=== PATIENT | female | born 1935 | race Caucasian/White ===

== ENCOUNTER 2018-04-12 15:01 | Observation (INO) ==
--- NOTE | 2018-04-12 15:16 | Emergency Department Note ---
Disposition Clinical Impression: Weakness, Hyponatremia UTI (urinary tract infection) Qualifiers: Urinary tract infection type: acute cystitis Hematuria presence: without hematuria Qualified Code(s): N30.00 - Acute cystitis without hematuria Disposition: Admitted As Inpatient Condition: Good Referrals: Charity Pike, WASH HELPER [Primary Care Provider] - Forms: ED Satisfaction Letter, Work/School Release Weakness HPI - General Chief complaint: ED Abdominal Pain Stated complaint: weakness, abd pain Time Seen by Provider: 04/12/18 15:10 Source: patient, EMS Mode of arrival: EMS Limitations: no limitations - History of Present Illness HPI Narrative: Patient presents with report of the "same thing that has been happening". She states for about 5 years she has had some generalized weakness some nausea without vomiting. She relates that prior to arrival she got "very weak" and felt faint to where she "nearly fell". She states that she felt hungry but "could not eat". She denies any new pain but reports some "normal pelvic area pain". She attributes this to some prolapse that she is recurrently had. She denies chest pain, palpitations, cough or shortness of breath. She denies fevers or chills. He denies other abdominal pains, diarrhea or constipation. She states she urinates frequently but she has had more frequent urination with some burning. She denies any change in medicines. She denies any falls or injuries. She denies lower extremity complaints. She denies use of anticoagulant. She states she lives alone at [facility]. Pt Subjective Complaint: generalized weakness/fatigue Onset (ago): year(s) Duration: constant, gradually worsening Location: generalized Migration: none Pain Severity: moderate (Chronic pelvic discomfort) Improves with: none Worsens with: exertion Context: history of similar Associated symptoms: Reports: dysuria, loss of appetite. Denies: chest pain, confusion, dark stools, diaphoresis, easy bruising, fever/chills, headaches, nausea/vomiting, myalgias, rash, shortness of breath, syncope - Related Data Home Medications Medication Instructions Recorded Confirmed Allopurinol [Zyloprim 300 MG] 300 mg PO DAILY 02/19/16 04/12/18 Calcium Carbonate/Vitamin D3 1 each PO DAILY 02/19/16 04/12/18 [Calcium 600 + Vit D Softgel] Fenofibrate [Tricor] 54 mg PO DAILY 02/19/16 04/12/18 Fluticasone Furoate [Arnuity 100 mcg NS DAILY 02/19/16 04/12/18 Ellipta] Ibuprofen [Motrin] 800 mg PO BID 02/19/16 04/12/18 Levothyroxine [Synthroid] 50 mcg PO DAILY 02/19/16 04/12/18 Multivitamin [Chewable Multi 1 tab PO DAILY 02/19/16 04/12/18 Vitamin] [place]-3/Dha/Epa/Fish Oil [Fish Oil 1 each PO BID 02/19/16 04/12/18 1,000 mg Softgel] PrednisoLONE Acetate 1% Opth 1 drop RIGHT EYE DAILY 02/19/16 04/12/18 [PredFORTE 1%] Propranolol [Inderal] 10 mg PO BID 02/19/16 04/12/18 Allergies Allergy/AdvReac Type Severity Reaction Status Date / Time azithromycin Allergy Hives Verified 02/05/18 18:53 [From Zithromax Z-Silviano] ciprofloxacin [From Cipro] Allergy Hives Verified 04/12/18 15:16 gabapentin Allergy Gastrointestinal Verified 02/05/18 18:53 Upset oxybutynin Allergy Gastrointestinal Verified 02/05/18 18:53 Upset All systems ED: reviewed and negative except as stated. Past Medical History - Past Medical History Medical history: Reports: arthritis, hyperlipidemia, kidney stones, renal disease, thyroid disease, other (Essential tremor, spinal stenosis, rectocele) Surgical history: Reports: appendectomy, cataract, cholecystectomy, herniorrhaphy, hip replacement, hysterectomy, orthopedic, other (Right knee arthroscopy), ureteral stent, other (Corneal transplant, cystocele/rectocele repair, lithotripsy, right oophorectomy) Psychiatric history: Reports: no psych history ORACLE ARCHITECT history: Reports: bilateral tubal ligation - Social History Smoking Status: Never smoker Smokeless Tobacco Status: No Alcohol use: Reports: none Drug use: Reports: none Physical Exam - General Limitations: no limitations General appearance: alert, in no apparent distress - Head Head exam: atraumatic, normocephalic, normal inspection - Eye Eye exam: Present: normal appearance, PERRL, EOMI. Absent: conjunctival injection - ENT ENT exam: normal exam, normal oropharynx, mucous membranes moist - Neck Neck exam: Present: normal inspection, full ROM, trachea midline - Chest Chest inspection: Present: normal inspection, symmetric chest wall rise - Respiratory Respiratory exam: Present: normal lung sounds bilaterally. Absent: respiratory distress, wheezes, prolonged expiratory phase - Cardiovascular Cardiovascular exam: Present: regular rate, normal rhythm, normal heart sounds. Absent: tachycardia - Abdominal Exam Abdominal exam: Present: soft, Non-Tender, normal bowel sounds. Absent: tenderness, distention, guarding, rebound, rigidity - Extremities Exam Extremities exam: Present: normal inspection, full ROM, normal capillary refill. Absent: tenderness, pedal edema, calf tenderness - Expanded Lower Extremity Exam Neurovascular/Tendon exam: Present: normal capillary refill. Absent: motor deficit, sensory deficit, tendon deficit Gait: not tested/not observed - Back Exam Back exam: Present: normal inspection, full ROM. Absent: tenderness, CVA tenderness (R), CVA tenderness (L), vertebral tenderness - Neurological Exam Neurological exam: Present: alert, oriented X3 - Psychiatric Psychiatric exam: Present: normal affect, normal mood - Skin Skin exam: Present: warm, dry, intact, normal color. Absent: rash, diaphoresis , pallor Course Course Narrative: Given the patient's weakness and urinary tract infection, she has been started on IV fluids and IV Rocephin. Care is discussed with Dr. Hernandez to coordinate further inpatient hydration and IV antibiotic treatment. She will need assessment with regard to her strength and ability to ambulate to return to independent living. She is coordinated for observation in stable condition. Vital Signs Temperature 100.4 F H 04/12/18 15:04 Pulse Rate 78 04/12/18 15:04 Respiratory Rate 18 04/12/18 15:04 Blood Pressure 155/74 04/12/18 15:04 O2 Sat by Pulse Oximetry 95 04/12/18 15:04 Temperature 100.4 F H 04/12/18 15:04 Pulse Rate 74 04/12/18 16:16 Respiratory Rate 18 04/12/18 16:16 Blood Pressure 143/55 04/12/18 16:16 O2 Sat by Pulse Oximetry 98 04/12/18 16:16 Oxygen Delivery Oxygen Delivery Room Air Weakness - Differential Diagnosis Differential Diagnosis: Likely: acute myocardial infarction, anemia, sepsis/ infection, dehydration, medication effect, metabolic - Medical Records Medical records reviewed: Yes I reviewed the patient's medical records. - Lab Data Lab results reviewed: Yes I reviewed the patient's lab results. Result diagrams: 04/12/18 15:45 04/12/18 15:45 Lab Results 04/12/18 04/12/18 04/12/18 Range/Units 15:26 15:45 15:45 WBC 10.2 (4.3-11.1) K/mcL RBC 4.86 (3.82-4.97) M/mcL Hgb 12.9 (11.5-15.4) g/dL Hct 38.9 (35.3-44.9) % MCV 80.0 L (83.0-100.0) fL MCH 26.5 L (28.0-33.3) pg MCHC 33.2 (31.6-35.5) g/dL RDW 15.1 H (11.5-14.5) % Plt Count 282 (140-400) K/mcL MPV 8.8 L (9.4-12.4) fL Immature Gran % 0.4 (0-4) % Seg Neutrophils % 74.1 % Lymphocytes % 11.7 % Monocytes % 13.2 % Eosinophils % 0.4 % Basophils % 0.2 % Neutrophils # 7.6 (1.6-8.9) K/mcL Lymphocytes # 1.2 (0.6-4.6) K/mcL Monocytes # 1.4 H (0.0-1.3) K/mcL Eosinophils # 0.0 (0.0-0.6) K/mcL Basophils # 0.0 (0.0-0.2) K/mcL Sodium 129 L (136-145) mEq/L Potassium 3.8 (3.5-5.1) mEq/L Chloride 96 L (98-107) mEq/L Carbon Dioxide 25 (23-29) mEq/L BUN 11 (8-23) mg/dL Creatinine 0.69 (0.60-1.20) mg/dL Est GFR ( Amer) > 60 (> 60) Est GFR (Non-Af Amer) > 60 (> 60) BUN/Creatinine Ratio 16 (6-26) Glucose 197 H (70-105) mg/dL Calculated Osmolality 273 L (280-300) Lactic Acid (0.5-2.2) mmol/L Calcium 9.6 (8.6-10.3) mg/dL Total Bilirubin 0.8 (0.3-1.0) mg/dL Direct Bilirubin 0.3 H (0.0-0.2) mg/dL Indirect Bilirubin 0.5 (0.0-1.2) mg/dL AST 20 (13-39) Units/L ALT 21 (7-52) Units/L Alkaline Phosphatase 49 (34-104) Units/L Troponin I < 0.03 (< 0.04) ng/mL Serum Total Protein 7.6 (6.4-8.9) g/dL Albumin 4.1 (3.5-5.7) g/dL Globulin 3.5 (2.4-3.5) g/dL Albumin/Globulin Ratio 1.2 (1.1-2.2) Urine Color Yellow (Yellow) Urine Clarity Cloudy A (Clear) Urine pH 7.0 (5.0-8.0) pH Units Ur Specific [place] 1.020 (1.010-1.025) Urine Protein 100 H (Neg-Trace) mg/dL Urine Glucose (UA) 100 H (Normal) mg/dL Urine Ketones Trace H (Negative) mg/dL Urine Blood Small H (Negative) Urine Nitrite Positive A (Negative) Urine Bilirubin Negative (Negative) Urine Urobilinogen Normal (Normal) mg/dL Ur Leukocyte Esterase Large H (Negative) Urine Microscopic RBC 5-15 H (0-3) per hpf Urine Microscopic WBC TNTC H (0-3) per hpf Ur Squamous Epith Cells Few (None-Few) per lpf Urine Bacteria Many H (None-Few) per hpf Ur Culture Indicated? YES A (NO) 04/12/18 Range/Units 15:45 WBC (4.3-11.1) K/mcL RBC (3.82-4.97) M/mcL Hgb (11.5-15.4) g/dL Hct (35.3-44.9) % MCV (83.0-100.0) fL MCH (28.0-33.3) pg MCHC (31.6-35.5) g/dL RDW (11.5-14.5) % Plt Count (140-400) K/mcL MPV (9.4-12.4) fL Immature Gran % (0-4) % Seg Neutrophils % % Lymphocytes % % Monocytes % % Eosinophils % % Basophils % % Neutrophils # (1.6-8.9) K/mcL Lymphocytes # (0.6-4.6) K/mcL Monocytes # (0.0-1.3) K/mcL Eosinophils # (0.0-0.6) K/mcL Basophils # (0.0-0.2) K/mcL Sodium (136-145) mEq/L Potassium (3.5-5.1) mEq/L Chloride (98-107) mEq/L Carbon Dioxide (23-29) mEq/L BUN (8-23) mg/dL Creatinine (0.60-1.20) mg/dL Est GFR ( Amer) (> 60) Est GFR (Non-Af Amer) (> 60) BUN/Creatinine Ratio (6-26) Glucose (70-105) mg/dL Calculated Osmolality (280-300) Lactic Acid 1.1 (0.5-2.2) mmol/L Calcium (8.6-10.3) mg/dL Total Bilirubin (0.3-1.0) mg/dL Direct Bilirubin (0.0-0.2) mg/dL Indirect Bilirubin (0.0-1.2) mg/dL AST (13-39) Units/L ALT (7-52) Units/L Alkaline Phosphatase (34-104) Units/L Troponin I (< 0.04) ng/mL Serum Total Protein (6.4-8.9) g/dL Albumin (3.5-5.7) g/dL Globulin (2.4-3.5) g/dL Albumin/Globulin Ratio (1.1-2.2) Urine Color (Yellow) Urine Clarity (Clear) Urine pH (5.0-8.0) pH Units Ur Specific [place] (1.010-1.025) Urine Protein (Neg-Trace) mg/dL Urine Glucose (UA) (Normal) mg/dL Urine Ketones (Negative) mg/dL Urine Blood (Negative) Urine Nitrite (Negative) Urine Bilirubin (Negative) Urine Urobilinogen (Normal) mg/dL Ur Leukocyte Esterase (Negative) Urine Microscopic RBC (0-3) per hpf Urine Microscopic WBC (0-3) per hpf Ur Squamous Epith Cells (None-Few) per lpf Urine Bacteria (None-Few) per hpf Ur Culture Indicated? (NO) - EKG Data EKG attestation: Yes I reviewed and interpreted this EKG. EKG shows normal: sinus rhythm, axis, intervals, QRS complexes, ST-T waves Rate: normal (77) Voltage: c/w LVH (Borderline) Q waves: III, aVF Interpretation: no acute changes
[2018-04-12 15:54] LABS: Basophils % 0.2 %; Eosinophils % 0.4 %; Hematocrit 38.9 % (35.3-44.9); Hemoglobin 12.9 g/dL (11.5-15.4); Immature Granulocytes % 0.4 % (0-4); Lymphocytes # 1.2 K/mcL (0.6-4.6); Lymphocytes % 11.7 %; Mean Corpuscular HGB Conc 33.2 g/dL (31.6-35.5); Mean Corpuscular Hemoglobin 26.5 pg (28.0-33.3); Mean Platelet Volume 8.8 fL (9.4-12.4); Monocytes # 1.4 K/mcL (0.0-1.3); Monocytes % 13.2 %; Neutrophils # 7.6 K/mcL (1.6-8.9); Platelet Count 282 K/mcL (140-400); Red Blood Count 4.86 M/mcL (3.82-4.97); Red Cell Distribution Width 15.1 % (11.5-14.5); Segmented Neutrophils % 74.1 %
[2018-04-12 15:58] LABS: Bilirubin,Urine Negative (Negative); Blood,Urine Small (Negative); Clarity,Urine Cloudy (Clear); Color,Urine Yellow (Yellow); Glucose,Urine (UA) 100 mg/dL (Normal); Ketones,Urine Trace mg/dL (Negative); Leukocyte Esterase,Urine Large (Negative); Nitrite,Urine Positive (Negative); Protein,Urine 100 mg/dL (Neg-Trace); Urobilinogen,Urine Normal (Normal)
[2018-04-12 16:07] LABS: Bacteria,Urine Many per hpf (None-Few); Squamous Epithelial Cell,Urine Few per lpf (None-Few); WBC,Urine TNTC per hpf (0-3)
[2018-04-12 16:12] LABS: Alanine Aminotransferase 21 Units/L (7-52); Albumin 4.1 g/dL (3.5-5.7); Albumin/Globulin Ratio 1.2 (1.1-2.2); Alkaline Phosphatase 49 Units/L (34-104); Aspartate Amino Transferase 20 Units/L (13-39); BUN/Creatinine Ratio 16 (6-26); Bilirubin,Direct 0.3 mg/dL (0.0-0.2); Bilirubin,Indirect 0.5 mg/dL (0.0-1.2); Bilirubin,Total 0.8 mg/dL (0.3-1.0); Blood Urea Nitrogen 11 mg/dL (8-23); Calcium 9.6 mg/dL (8.6-10.3); Carbon Dioxide 25 mEq/L (23-29); Chloride 96 mEq/L (98-107); Globulin 3.5 g/dL (2.4-3.5); Glucose 197 mg/dL (70-105); Osmolality,Calculated 273 (280-300); Potassium 3.8 mEq/L (3.5-5.1); Sodium 129 mEq/L (136-145); Total Protein 7.6 g/dL (6.4-8.9); eGFR For African Americans > 60 (> 60); eGFR For Non-African Americans > 60 (> 60)
[2018-04-12] MEDS ORDERED: cefTRIAXone 2,000 MG in 0.9 % Sodium Chloride Mini Bag 100 ML IVPB ONE (16:17)
[2018-04-12 16:25] LABS: Troponin I < 0.03 ng/mL (< 0.04)
[2018-04-12] MEDS ORDERED: 0.9 % Sodium Chloride 1,000 ML IVC SCH ×2 (16:30→17:14)
[2018-04-12] MEDS ORDERED: Naloxone 0.4 MG/ML INJ IVP PRN (17:14)
[2018-04-12] MEDS: Acetaminophen 325 MG TABLET PO PRN (18:12)
[2018-04-12] MEDS: Ibuprofen 800 MG TABLET PO SCH (20:07)
[2018-04-13] MEDS: Acetaminophen 325 MG TABLET PO PRN (00:05)
[2018-04-13 07:56] VITALS: BP 127/52
[2018-04-13] MEDS ORDERED: cefTRIAXone 2,000 MG in 0.9 % Sodium Chloride Mini Bag 100 ML IVPB SCH (09:00)
[2018-04-13] MEDS ORDERED: Fenofibrate 54 MG TABLET PO SCH (09:00)
[2018-04-13] MEDS ORDERED: Levothyroxine 25 MCG TABLET PO SCH (09:00)
[2018-04-13] MEDS ORDERED: PrednisoLONE Acetate 1% Opth 5 ML BOTTLE RIGHT EYE SCH (09:00)
[2018-04-13] MEDS ORDERED: Fluticasone Propionate Nasal 50 MCG/SPRAY BOTTLE NS SCH (09:00)
--- NOTE | 2018-04-13 10:17 | Internal Med History&Physical ---
Date of Encounter: 04/13/18 Time of Encounter: 09:40 Assessment and Plan (1) UTI (urinary tract infection) Current visit: Yes Status: Acute She was started empirically on Rocephin in emergency room. Pyridium was added for dysuria. She feels improved now and stable for discharge home. Qualifiers: Urinary tract infection type: acute cystitis Hematuria presence: with hematuria Qualified Code(s): N30.01 - Acute cystitis with hematuria (2) Weakness Current visit: Yes Status: Acute She feels stronger now. (3) Hyponatremia Current visit: Yes Status: Acute Etiology not obvious. She is asymptomatic. Internal Medicine - H&P: HPI Chief complaint: Weakness, dysuria Admitted From: Emergency Dept Plans for Post Hospital Care: Home History of present illness: Ms. Baker is a 82 year old female who came to emergency room complaining of weakness onset the evening of April 11. She felt she was staggering on walking April 12. She had low abdominal discomfort and frequent painful urination. She came to emergency room and was evaluated and found to have evidence of UTI and hyponatremia. She was admitted to [facility] floor for ongoing care needs. She reports frequent urinary infections in the past. She has seen a urologist at [facility] who has addressed prolapse issues and scheduled surgery for 05/29 at [facility]. She had previous prolapse repair with mesh placement 2002 at [facility]. She has had kidney stones and an ovary cyst in the past. She denies other kidney or bladder disorders. Past Med Surg Social Fam HX - Past Medical History Medical history: arthritis, hyperlipidemia, kidney stones, renal disease, thyroid disease, other Additional medical history: spinal stenosis. severe rectocele. essential tremors. kidney stones Psychiatric history: no psych history - Past Surgical History Surgical History: appendectomy, cataract, cholecystectomy, herniorrhaphy, hip replacement, hysterectomy, orthopedic, other, ureteral stent, other Additional surgical history: 4 Cornea Transplants - Social History Smoking Status: Never smoker Smokeless Tobacco Status: No Alcohol use: none Drug use: none Internal Medicine - H&P: Meds Allopurinol [Zyloprim 300 MG] 300 mg PO DAILY 02/19/16 [History] Calcium Carbonate/Vitamin D3 [Calcium 600 + Vit D Softgel] 1 each PO DAILY 02/18 [History] Fenofibrate [Tricor] 54 mg PO DAILY 02/19/16 [History] Fluticasone Furoate [Arnuity Ellipta] 100 mcg NS DAILY 02/19/16 [History] Ibuprofen [Motrin] 800 mg PO BID 02/19/16 [History] Levothyroxine [Synthroid] 50 mcg PO DAILY 02/19/16 [History] Multivitamin [Chewable Multi Vitamin] 1 tab PO DAILY 02/19/16 [History] [place]-3/Dha/Epa/Fish Oil [Fish Oil 1,000 mg Softgel] 1 each PO BID 02/19/16 [ History] PrednisoLONE Acetate 1% Opth [PredFORTE 1%] 1 drop RIGHT EYE DAILY 02/19/16 [ History] Propranolol [Inderal] 10 mg PO BID 02/19/16 [History] 3 Allergy/AdvReac Type Severity Reaction Status Date / Time azithromycin Allergy Hives Verified 02/05/18 18:53 [From Zithromax Z-Silviano] ciprofloxacin [From Cipro] Allergy Hives Verified 04/12/18 15:16 gabapentin Allergy Gastrointestinal Verified 02/05/18 18:53 Upset oxybutynin Allergy Gastrointestinal Verified 02/05/18 18:53 Upset All Systems PM: A 10-system review of systems was performed and is negative for pertinent findings except as documented above in the HPI. Review of systems: Gen.: She states her weight has decreased 20-25 pounds in the past year, unintentionally Cardiovascular: She denies hypertension NH heart failure angina DVT or pulmonary embolus Respiratory: She is a lifelong nonsmoker and denies chronic lung disease GI: She has had cholecystectomy. She has GERD. She denies disorders of her liver or exocrine pancreas : As per history of present illness Neurologic: She has essential tremor. She denies large distribution strokes or seizures. Endocrine: She has hypothyroidism and hypertriglyceridemia. She denies known diabetes. Hematology/oncology: She denies blood disorders cancers or anemia Psychiatric: She denies anxiety depression or other mental health issues [place] skeletal: She had elective left total hip replacement in the past. She has history of gout. She denies significant arthritis or other bone joint or muscle disorders. - Constitutional Vitals: Temp Pulse Resp BP Pulse Ox 98.0 F 74 16 127/52 94 04/13/18 07:55 04/13/18 07:55 04/13/18 07:55 04/13/18 07:55 04/13/18 07:55 Exam: Gen.: She is a well-developed well-nourished female resting comfortably in bed who appears in no acute distress HEENT: Head is atraumatic and normocephalic. Eyes: EOMI. There is no scleral icterus. Mouth: Mucosa is moist. Neck: Supple and nontender. There is no thyromegaly or adenopathy noted. Heart: Regular without murmurs gallops or ectopics Lungs: No wheezes or crackles are heard Abdomen: Soft and nontender. No masses or guarding are noted. Extremities: She is wearing MEHRDAD hose and socks which I did not remove. There is no pitting edema of her lower legs. She has minimal DJD changes of her hands. Neurologic: Mental status: She is talkative and a good historian. Cranial nerves: Smile is symmetric. Forehead wrinkles bilaterally. Tongue protrudes midline. EOMI. Motor: There is no pronator drift. Cerebellar: Finger to nose is intact bilaterally. Skin: Warm and dry Internal Med - H&P Results - Labs CBC & Chem 7: 04/12/18 15:45 04/12/18 15:45 - VTE Documentation of Mechanical Device: Graduated compression elastic hosiery
[2018-04-13] MEDS: Ibuprofen 800 MG TABLET PO SCH (10:26)
--- NOTE | 2018-04-13 11:49 | Discharge Summary ---
Orders not resulted at time of discharge: Pending orders 04/12/18 18:19 Culture,Blood [BC] Stat Date of Encounter: 04/13/18 Time of Encounter: 11:40 - Discharge Diagnosis (1) UTI (urinary tract infection) Priority: Primary Status: Acute Qualifiers: Urinary tract infection type: acute cystitis Hematuria presence: with hematuria Qualified Code(s): N30.01 - Acute cystitis with hematuria (2) Weakness Priority: Secondary Status: Acute (3) Hyponatremia Priority: Secondary Status: Acute Hospital course: Ms. Baker is a 82 year old female who came to emergency room complaining of weakness onset the evening of April 11. She felt she was staggering on walking April 12. She had low abdominal discomfort and frequent painful urination. She came to emergency room and was evaluated and found to have evidence of UTI and hyponatremia. She was admitted to [facility] floor for ongoing care needs. Initial orders were written by the emergency room physician. I saw her on April 13 and performed a history and physical and discharge. She was given Rocephin empirically in emergency room. Pyridium was added for dysuria. When I saw her on April 13 she felt improved and stable for discharge home. Urine and blood culture reports are pending at time of discharge. She will receive 5 days of antibiotics and probiotic at discharge. Her PCP can follow up on culture results. She will follow with her PCP Charity Pike CNP within 1 week. - Time Spent with Patient Total time spent providing and/or coordinating discharge services: - Discharge Medications Prescriptions: Lactobacillus [Culturelle] 1 each PO BID #10 cap.sprink Sulfamethoxazole/Trimeth DS [Bactrim DS] 1 each PO BID #10 tablet Home Medications: Allopurinol [Zyloprim 300 MG] 300 mg PO DAILY 02/19/16 [History] Calcium Carbonate/Vitamin D3 [Calcium 600 + Vit D Softgel] 1 each PO DAILY 02/18 [History] Fenofibrate [Tricor] 54 mg PO DAILY 02/19/16 [History] Fluticasone Furoate [Arnuity Ellipta] 100 mcg NS DAILY 02/19/16 [History] Ibuprofen [Motrin] 800 mg PO BID 02/19/16 [History] Levothyroxine [Synthroid] 50 mcg PO DAILY 02/19/16 [History] Multivitamin [Chewable Multi Vitamin] 1 tab PO DAILY 02/19/16 [History] [place]-3/Dha/Epa/Fish Oil [Fish Oil 1,000 mg Softgel] 1 each PO BID 02/19/16 [ History] PrednisoLONE Acetate 1% Opth [PredFORTE 1%] 1 drop RIGHT EYE DAILY 02/19/16 [ History] Propranolol [Inderal] 10 mg PO BID 02/19/16 [History] Lactobacillus [Culturelle] 1 each PO BID #10 cap.sprink 04/13/18 [Rx] Sulfamethoxazole/Trimeth DS [Bactrim DS] 1 each PO BID #10 tablet 04/13/18 [Rx] Allergies/Adverse Reactions: 3 Allergy/AdvReac Type Severity Reaction Status Date / Time azithromycin Allergy Hives Verified 02/05/18 18:53 [From Zithromax Z-Silviano] ciprofloxacin [From Cipro] Allergy Hives Verified 04/12/18 15:16 gabapentin Allergy Gastrointestinal Verified 02/05/18 18:53 Upset oxybutynin Allergy Gastrointestinal Verified 02/05/18 18:53 Upset Date of admission: 04/12/18 17:02 Primary care physician: Charity Pike CNP - Constitutional Vitals: Temp Pulse Resp BP Pulse Ox 98.0 F 74 16 127/52 94 04/13/18 07:55 04/13/18 07:55 04/13/18 07:55 04/13/18 07:55 04/13/18 07:55 - Patient Status Disposition: Home, Self-Care Condition: Good Overall status at discharge: patient is progressing back to baseline - Discharge Instructions Follow Up With: Charity Pike CNP [Primary Care Provider] - 1 week - Diet and Activity Activity: resume usual activities as tolerated Diet: advance to your usual diet - VTE Documentation of Mechanical Device: Graduated compression elastic hosiery
[2018-04-13] MEDS ORDERED: cefTRIAXone 2,000 MG in Water for inj. (sterile) 20 ML 20 ML IVP SCH (17:00)
--- NOTE | 2018-04-16 20:30 | Electrocardiograph Report ---
[address] [address] Test Date: 2018-04-12 Pat Name: Bette Baker Department: [id number] Room: [facility] Gender: F Netting Inspector: [id number] : 1935 Requested By: Jeff Corss Order Number: [id number] Reading MD: Javier Moore Measurements Intervals Conception Rate: 77 P: 30 MS: 191 QRS: -19 QRSD: 82 T: 50 QT: 360 QTc: 392 Interpretive Statements SINUS RHYTHM MINIMAL VOLTAGE CRITERIA FOR LVH, CONSIDER NORMAL VARIANT INFERIOR MYOCARDIAL INFARCTION, PROBABLY OLD Electronically Signed On 04-16-2018 20:29:18 EDT by Javier Moore
== END 2018-04-13 13:48 | disposition home or self-care (01) ==
LOC: INPPIK 15:01 → EMEROOPIK 15:01 → INPPIK 17:14
PROVIDERS: ADMIT Internal Medicine; ATTEND Internal Medicine

== ENCOUNTER 2018-06-29 06:30 | Observation (INO) ==
[2018-06-29] MEDS ORDERED: Ondansetron ODT 4 MG TAB.RAPDIS SL STA (07:10)
[2018-06-29] MEDS ORDERED: Ibuprofen 800 MG TABLET PO ONE (07:11)
[2018-06-29 07:30] LABS: Bilirubin,Urine Negative (Negative); Blood,Urine Large (Negative); Clarity,Urine Cloudy (Clear); Color,Urine Amber (Yellow); Glucose,Urine (UA) Normal (Normal); Ketones,Urine Negative (Negative); Leukocyte Esterase,Urine Moderate (Negative); Nitrite,Urine Positive (Negative); Protein,Urine 100 mg/dL (Neg-Trace); Urobilinogen,Urine Normal (Normal)
[2018-06-29 07:41] LABS: Bacteria,Urine Few per hpf (None-Few); RBC,Urine TNTC per hpf (0-3); Squamous Epithelial Cell,Urine Few per lpf (None-Few); WBC,Urine 30-50 per hpf (0-3)
[2018-06-29] MEDS ORDERED: Ketorolac 30 MG/ML VIAL IM ONE (07:41)
[2018-06-29 07:58] LABS: Basophils % 0.5 %; Eosinophils # 0.3 K/mcL (0.0-0.6); Eosinophils % 3.7 %; Hematocrit 36.9 % (35.3-44.9); Hemoglobin 12.4 g/dL (11.5-15.4); Immature Granulocytes % 0.9 % (0-4); Lymphocytes # 1.8 K/mcL (0.6-4.6); Lymphocytes % 23.6 %; Mean Corpuscular HGB Conc 33.6 g/dL (31.6-35.5); Mean Corpuscular Hemoglobin 26.4 pg (28.0-33.3); Mean Corpuscular Volume 78.5 fL (83.0-100.0); Mean Platelet Volume 8.7 fL (9.4-12.4); Monocytes % 12.6 %; Neutrophils # 4.5 K/mcL (1.6-8.9); Platelet Count 355 K/mcL (140-400); Red Cell Distribution Width 14.1 % (11.5-14.5); Segmented Neutrophils % 58.7 %
--- NOTE | 2018-06-29 08:11 | Emergency Department Note ---
Disposition Clinical Impression: UTI (urinary tract infection), Hyponatremia Disposition: Admitted As Inpatient Condition: Fair Referrals: Charity Pike, NURSE TRANSITIONAL [Primary Care Provider] - Forms: ED Satisfaction Letter, Work/School Release Female Urogenital HPI - General Chief complaint: ED Abdominal Pain Stated complaint: Bleeding with urination Time Seen by Provider: 06/29/18 06:45 Source: patient Mode of arrival: EMS Limitations: no limitations Nursing Notes Reviewed: Yes Vital Signs Reviewed: Yes - History of Present Illness HPI Narrative: Patient presents to the ED complaining of bleeding with urination. First episode was at 1 AM this morning. She states she also passed a blood clot when she urinated around 5:30 this morning. She reports urinary urgency and frequency that has been going on for approximately 1 week. She has had nausea but no vomiting. She also reports 2-3 out of 10 aching lower abdominal pain that has been going on for 1 week as well. She denies any fever or chills. States she saw her PCPs office on 06/26 and had a urine culture done. She was started on Bactrim at that time. She does not know the results of the urine culture. She reports that she has frequent urinary tract infections. She also had surgery at [facility] [place] one month ago on May 29 for an umbilical hernia as well as a colpoplexy. No complications. - Related Data Home Medications Medication Instructions Recorded Confirmed Allopurinol [Zyloprim 300 MG] 300 mg PO DAILY 02/19/16 06/29/18 Fenofibrate [Tricor] 54 mg PO DAILY 02/19/16 06/29/18 Fluticasone Furoate [Arnuity 100 mcg NS DAILY 02/19/16 06/29/18 Ellipta] Ibuprofen [Motrin] 800 mg PO BID 02/19/16 06/29/18 Levothyroxine [Synthroid] 50 mcg PO DAILY 02/19/16 06/29/18 [place]-3/Dha/Epa/Fish Oil [Fish Oil 1 each PO BID 02/19/16 06/29/18 1,000 mg Softgel] Propranolol [Inderal] 10 mg PO BID 02/19/16 06/29/18 Omeprazole [PriLOSEC] 20 mg PO DAILY 06/29/18 06/29/18 Previous Rx's Medication Instructions Recorded Lactobacillus [Culturelle] 1 each PO BID #10 cap.sprink 06/14/18 Sulfamethoxazole/Trimeth DS 1 each PO BID #10 tablet 04/13/18 [Bactrim DS] Allergies Allergy/AdvReac Type Severity Reaction Status Date / Time azithromycin Allergy Hives Verified 02/05/18 18:53 [From Zithromax Z-Silviano] ciprofloxacin [From Cipro] Allergy Hives Verified 04/12/18 15:16 gabapentin Allergy Gastrointestinal Verified 02/05/18 18:53 Upset oxybutynin Allergy Gastrointestinal Verified 02/05/18 18:53 Upset Constitutional: Denies: fever, chills, weakness, weight change Eyes: Denies: eye pain, eye discharge, vision change ENT ED: Denies: ear pain, throat pain, dental pain, hearing loss, epistaxis, congestion, dysphagia Cardiovascular: Denies: chest pain, palpitations, dyspnea on exertion, edema, syncope Respiratory: Denies: cough, dyspnea, wheezes, hemoptysis, stridor Gastrointestinal: Reports: abdominal pain, nausea. Denies: vomiting, diarrhea, constipation, hematemesis, melena, hematochezia Genitourinary: Reports: as per HPI, urgency, dysuria, frequency, hematuria Musculoskeletal: Denies: back pain, neck pain, arthralgia, myalgia Integumentary: Denies: rash, abrasion, lesions Neurological: Denies: headache, weakness, numbness, paresthesias, confusion, abnormal gait, vertigo Psychiatric: Denies: anxiety, depression, suicidal thoughts, homicidal thoughts , auditory hallucinations, visual hallucinations Endocrine: Denies: fatigue Hematological/Lymphatic: Denies: easy bleeding, easy bruising Allergic/Immunologic: Denies: facial swelling, urticaria Past Medical History - Past Medical History Medical history: Reports: arthritis, hyperlipidemia, kidney stones, renal disease, thyroid disease, other Surgical history: Reports: appendectomy, cataract, cholecystectomy, herniorrhaphy, hip replacement, hysterectomy, orthopedic, other, ureteral stent , other Psychiatric history: Reports: no psych history SAP ARCHITECT history: Reports: bilateral tubal ligation - Social History Smoking Status: Never smoker Smokeless Tobacco Status: No Alcohol use: Reports: none Drug use: Reports: none Physical Exam - General Limitations: no limitations General appearance: alert, in no apparent distress - Head Head exam: atraumatic, normocephalic, normal inspection - Eye Eye exam: Present: normal appearance, PERRL, EOMI - ENT ENT exam: normal exam, normal oropharynx, mucous membranes moist - Neck Neck exam: Present: normal inspection, full ROM, trachea midline - Chest Chest inspection: Present: normal inspection, symmetric chest wall rise - Respiratory Respiratory exam: Present: normal lung sounds bilaterally - Cardiovascular Cardiovascular exam: Present: regular rate, normal rhythm, normal heart sounds - Abdominal Exam Abdominal exam: Present: soft, tenderness, normal bowel sounds, scar (healing lower midline surgical). Absent: distention, guarding, rebound, rigidity Abdominal tenderness: Present: suprapubic, mild - Extremities Exam Extremities exam: Present: normal inspection, full ROM. Absent: tenderness, pedal edema - Back Exam Back exam: Present: normal inspection, full ROM. Absent: tenderness, CVA tenderness (R), CVA tenderness (L) - Neurological Exam Neurological exam: Present: alert, oriented X3 - Psychiatric Psychiatric exam: Present: normal affect, normal mood - Skin Skin exam: Present: warm, dry, intact, normal color Course Course Narrative: Patient presents to the ED complaining of urinary frequency, urgency, dysuria and hematuria despite being on Bactrim for 3 days for a suspected UTI. She arrives afebrile and hemodynamically stable. Records shows that urine culture performed on 06/26 grew pansensitive Citrobacter youngae. She has also had Escherichia coli and a variety of other bacterial growth in the past. On exam she only has mild suprapubic tenderness. Will give medication for pain and nausea while labs are obtained. - Reevaluation(s) Reevaluation #1: Urinalysis shows persistent evidence of UTI. She has no leukocytosis but does have hypoosmolar hyponatremia. Lactic acid is normal. Kidney function is normal. Discussed with patient the need for further antibiotic treatment and IV fluids and benefit of admission and she is in agreement. Dr. Hernandez was contacted and agreed to accept the patient. Time: 08:50 Vital Signs Temperature 98.7 F 06/29/18 06:39 Pulse Rate 69 06/29/18 06:39 Respiratory Rate 16 06/29/18 06:39 Blood Pressure 131/67 06/29/18 06:39 O2 Sat by Pulse Oximetry 97 06/29/18 06:39 Temperature 98.7 F 06/29/18 06:39 Pulse Rate 70 06/29/18 08:25 Respiratory Rate 14 06/29/18 08:25 Blood Pressure 144/78 06/29/18 08:25 O2 Sat by Pulse Oximetry 93 06/29/18 08:25 Oxygen Delivery Oxygen Delivery Room Air Urogenital-Female - Differential Diagnosis Likely: urinary tract infection - Medical Records Medical records reviewed: Yes I reviewed the patient's medical records. - Lab Data Lab results reviewed: Yes I reviewed the patient's lab results. Result diagrams: 06/29/18 07:40 06/29/18 07:42 Lab Results 06/29/18 06/29/18 06/29/18 Range/Units 07:00 07:40 07:42 WBC 7.6 (4.3-11.1) K/mcL RBC 4.70 (3.82-4.97) M/mcL Hgb 12.4 (11.5-15.4) g/dL Hct 36.9 (35.3-44.9) % MCV 78.5 L (83.0-100.0) fL MCH 26.4 L (28.0-33.3) pg MCHC 33.6 (31.6-35.5) g/dL RDW 14.1 (11.5-14.5) % Plt Count 355 (140-400) K/mcL MPV 8.7 L (9.4-12.4) fL Immature Gran % 0.9 (0-4) % Seg Neutrophils % 58.7 % Lymphocytes % 23.6 % Monocytes % 12.6 % Eosinophils % 3.7 % Basophils % 0.5 % Neutrophils # 4.5 (1.6-8.9) K/mcL Lymphocytes # 1.8 (0.6-4.6) K/mcL Monocytes # 1.0 (0.0-1.3) K/mcL Eosinophils # 0.3 (0.0-0.6) K/mcL Basophils # 0.0 (0.0-0.2) K/mcL Sodium 124 L (136-145) mEq/L Potassium 4.0 (3.5-5.1) mEq/L Chloride 92 L (98-107) mEq/L Carbon Dioxide 22 L (23-29) mEq/L BUN 14 (8-23) mg/dL Creatinine 0.83 (0.60-1.20) mg/dL Est GFR ( Amer) > 60 (> 60) Est GFR (Non-Af Amer) > 60 (> 60) BUN/Creatinine Ratio 17 (6-26) Glucose 124 H (70-105) mg/dL Calculated Osmolality 260 L (280-300) Lactic Acid (0.5-2.2) mmol/L Calcium 9.7 (8.6-10.3) mg/dL Urine Color Elo A (Yellow) Urine Clarity Cloudy A (Clear) Urine pH 7.0 (5.0-8.0) pH Units Ur Specific [place] 1.010 (1.010-1.025) Urine Protein 100 H (Neg-Trace) mg/dL Urine Glucose (UA) Normal (Normal) mg/dL Urine Ketones Negative (Negative) mg/dL Urine Blood Large H (Negative) Urine Nitrite Positive A (Negative) Urine Bilirubin Negative (Negative) Urine Urobilinogen Normal (Normal) mg/dL Ur Leukocyte Esterase Moderate H (Negative) Urine Microscopic RBC TNTC H (0-3) per hpf Urine Microscopic WBC 30-50 H (0-3) per hpf Ur Squamous Epith Cells Few (None-Few) per lpf Urine Bacteria Few (None-Few) per hpf Ur Culture Indicated? YES A (NO) 06/29/18 Range/Units 07:42 WBC (4.3-11.1) K/mcL RBC (3.82-4.97) M/mcL Hgb (11.5-15.4) g/dL Hct (35.3-44.9) % MCV (83.0-100.0) fL MCH (28.0-33.3) pg MCHC (31.6-35.5) g/dL RDW (11.5-14.5) % Plt Count (140-400) K/mcL MPV (9.4-12.4) fL Immature Gran % (0-4) % Seg Neutrophils % % Lymphocytes % % Monocytes % % Eosinophils % % Basophils % % Neutrophils # (1.6-8.9) K/mcL Lymphocytes # (0.6-4.6) K/mcL Monocytes # (0.0-1.3) K/mcL Eosinophils # (0.0-0.6) K/mcL Basophils # (0.0-0.2) K/mcL Sodium (136-145) mEq/L Potassium (3.5-5.1) mEq/L Chloride (98-107) mEq/L Carbon Dioxide (23-29) mEq/L BUN (8-23) mg/dL Creatinine (0.60-1.20) mg/dL Est GFR ( Amer) (> 60) Est GFR (Non-Af Amer) (> 60) BUN/Creatinine Ratio (6-26) Glucose (70-105) mg/dL Calculated Osmolality (280-300) Lactic Acid 0.8 (0.5-2.2) mmol/L Calcium (8.6-10.3) mg/dL Urine Color (Yellow) Urine Clarity (Clear) Urine pH (5.0-8.0) pH Units Ur Specific [place] (1.010-1.025) Urine Protein (Neg-Trace) mg/dL Urine Glucose (UA) (Normal) mg/dL Urine Ketones (Negative) mg/dL Urine Blood (Negative) Urine Nitrite (Negative) Urine Bilirubin (Negative) Urine Urobilinogen (Normal) mg/dL Ur Leukocyte Esterase (Negative) Urine Microscopic RBC (0-3) per hpf Urine Microscopic WBC (0-3) per hpf Ur Squamous Epith Cells (None-Few) per lpf Urine Bacteria (None-Few) per hpf Ur Culture Indicated? (NO)
[2018-06-29 08:20] LABS: BUN/Creatinine Ratio 17 (6-26); Blood Urea Nitrogen 14 mg/dL (8-23); Calcium 9.7 mg/dL (8.6-10.3); Carbon Dioxide 22 mEq/L (23-29); Chloride 92 mEq/L (98-107); Glucose 124 mg/dL (70-105); Osmolality,Calculated 260 (280-300); Sodium 124 mEq/L (136-145); eGFR For Non-African Americans > 60 (> 60)
[2018-06-29] MEDS ORDERED: 0.9 % Sodium Chloride 1,000 ML IVC SCH ×2 (08:30→17:45)
[2018-06-29] MEDS ORDERED: cefTRIAXone 1,000 MG in Water for inj. (sterile) 20 ML 10 ML IVP ONE (08:33)
[2018-06-29] MEDS ORDERED: Sulfamethoxazole/Trimeth DS 1 EACH TABLET PO SCH (09:28)
[2018-06-29] MEDS ORDERED: Ondansetron ODT 4 MG TAB.RAPDIS SL PRN (09:28)
[2018-06-29] MEDS ORDERED: Ibuprofen 800 MG TABLET PO SCH (09:28)
[2018-06-29] MEDS ORDERED: Naloxone 0.4 MG/ML INJ IVP PRN (09:28)
[2018-06-29] MEDS: (Omega-3/Dha/Epa/Fish Oil [Fish Oil 1,000 Mg Softgel]) PO SCH ×2 (14:07→22:07)
[2018-06-29] MEDS: Lactobacillus 1 EACH CAP.SPRINK PO SCH ×2 (15:54→22:00)
[2018-06-29] MEDS: Fenofibrate 54 MG TABLET PO SCH (15:55)
--- NOTE | 2018-06-29 17:02 | Internal Med History&Physical ---
Date of Encounter: 06/29/18 Time of Encounter: 16:35 Assessment and Plan (1) Hematuria Current visit: Yes Status: Acute CT scan of chest, abdomen and pelvis will be done to evaluate. Abdominal/ pelvis CT scan 01/09/2018 showed dilation of the right collecting system with possible small calcification. There was asymmetric irregularity of the urinary bladder wall, incompletely evaluated. Recommendation was made for ultrasound of filled bladder to assess for intraluminal bladder lesion. Qualifiers: Hematuria type: unspecified type Qualified Code(s): R31.9 - Hematuria, unspecified (2) UTI (urinary tract infection) Current visit: Yes Status: Acute Urine culture has been ordered. She has been started empirically on Rocephin. CT scan will be done as per above. Qualifiers: Urinary tract infection type: site unspecified Hematuria presence: with hematuria Qualified Code(s): N39.0 - Urinary tract infection, site not specified; R31.9 - Hematuria, unspecified (3) Microcytosis Current visit: Yes Status: Acute Iron studies will be done in a.m. (4) Weight loss Current visit: Yes Status: Acute TSH was normal at 3.267 on 06/02/2018. CT scans will be done as per above. (5) Hyponatremia Current visit: Yes Status: Acute Suspect SIADH. Urine osmolality will be ordered. Ibuprofen will be discontinued. (6) Hyperglycemia Current visit: Yes Status: Acute Review of labs show glucose elevated on all labs since December 2016. Check hemoglobin A1c in a.m. Internal Medicine - H&P: HPI Chief complaint: UTI, hematuria Admitted From: Emergency Dept Plans for Post Hospital Care: Home History of present illness: Ms. Baker is a 83 year old female who came to emergency room stating she had UTI symptoms onset approximately one week ago. She went to her PCP office on June 26 and received a prescription for Bactrim. She reports taking it as prescribed without improvement in symptoms of frequency and dysuria. Approximately 0100 today she noticed visible hematuria. She came to emergency room and was evaluated and was admitted to [facility] floor for ongoing care needs. She was hospitalized to [facility] March 2018 with UTI. She reports frequent UTIs in the past. She follows with a urologist in [place]. She had prolapse repair with mesh placement 2002 at [facility] and had umbilical hernia and colpopexy April 2018 at [facility]. She has had kidney stones and ovary cyst in the past. She denies other kidney or bladder disorders. Past Med Surg Social Fam HX - Past Medical History Medical history: arthritis, hyperlipidemia, kidney stones, renal disease, thyroid disease, other Additional medical history: spinal stenosis. severe rectocele. essential tremors. kidney stones Psychiatric history: no psych history - Past Surgical History Surgical History: appendectomy, cataract, cholecystectomy, herniorrhaphy, hip replacement, hysterectomy, orthopedic, other, ureteral stent, other Additional surgical history: 4 cornea transplants - Social History Smoking Status: Never smoker Smokeless Tobacco Status: No Alcohol use: none Drug use: none - Family History Mother Living Status: Hx Family Cardiac Disorders: Yes Internal Medicine - H&P: Meds Allopurinol [Zyloprim 300 MG] 300 mg PO DAILY 02/19/16 [History] Fenofibrate [Tricor] 54 mg PO DAILY 02/19/16 [History] Fluticasone Furoate [Arnuity Ellipta] 100 mcg NS DAILY 02/19/16 [History] Ibuprofen [Motrin] 800 mg PO BID 02/19/16 [History] Levothyroxine [Synthroid] 50 mcg PO DAILY 02/19/16 [History] [place]-3/Dha/Epa/Fish Oil [Fish Oil 1,000 mg Softgel] 1 each PO BID 02/19/16 [ History] Propranolol [Inderal] 10 mg PO BID 02/19/16 [History] Lactobacillus [Culturelle] 1 each PO BID #10 cap.sprink 04/13/18 [Rx] Sulfamethoxazole/Trimeth DS [Bactrim DS] 1 each PO BID #10 tablet 04/13/18 [Rx] Omeprazole [PriLOSEC] 20 mg PO DAILY 06/29/18 [History] 3 Allergy/AdvReac Type Severity Reaction Status Date / Time azithromycin Allergy Hives Verified 02/05/18 18:53 [From Zithromax Z-Silviano] ciprofloxacin [From Cipro] Allergy Hives Verified 04/12/18 15:16 gabapentin Allergy Gastrointestinal Verified 02/05/18 18:53 Upset oxybutynin Allergy Gastrointestinal Verified 02/05/18 18:53 Upset All Systems PM: A 10-system review of systems was performed and is negative for pertinent findings except as documented above in the HPI. Review of systems: Review of systems from her March 2018 [facility] hospitalization were reviewed and revised as below. Gen.: Her weight has decreased from 68.492 kg on 04/12/2018 to 66.678 kg at present. She reported at the March hospitalization she had lost approximately 20 -25 pounds in the past year, unintentionally. She attributes this to poor appetite. Cardiovascular: She denies hypertension AL heart failure angina DVT or pulmonary embolus Respiratory: She is a lifelong nonsmoker and denies chronic lung disease GI: She has had cholecystectomy. She has GERD. She denies disorders of her liver or exocrine pancreas : As per history of present illness Neurologic: She has essential tremor. She denies large distribution strokes or seizures. Endocrine: She has hypothyroidism and hypertriglyceridemia. She denies known diabetes. Hematology/oncology: She denies blood disorders cancers or anemia Psychiatric: She denies anxiety depression or other mental health issues [place] skeletal: She had elective left total hip replacement in the past. She has history of gout. She denies significant arthritis or other bone joint or muscle disorders. - Constitutional Vitals: Temp Pulse Resp BP Pulse Ox 98.0 F 81 16 123/65 93 06/29/18 15:03 06/29/18 15:03 06/29/18 15:03 06/29/18 15:03 06/29/18 15:03 Exam: Gen.: She is a well-developed well-nourished female sitting on the side of bed who appears in no acute distress HEENT: Head is atraumatic and normocephalic. Eyes: EOMI. There is no scleral icterus. Mouth: Mucosa is moist. Neck: Supple and nontender. There is no thyromegaly or adenopathy noted. Heart: Regular without murmurs gallops or ectopics Lungs: No wheezes or crackles are heard. Abdomen: Soft and nontender. No masses or guarding are noted. Exam is limited because she is in the seated position. Extremities: There is no cyanosis edema or clubbing noted. Dorsalis pedis and posttibial pulses are trace to 1+ palpable bilaterally. Neurologic: Mental status: She is talkative and a good historian. Cranial nerves: Smile is symmetric. Forehead wrinkles bilaterally. Tongue protrudes midline. EOMI. Motor: There is no pronator drift. Cerebellar: Finger to nose is intact bilaterally. Skin: Warm and dry Internal Med - H&P Results - Labs CBC & Chem 7: 06/29/18 07:40 06/29/18 07:42 - VTE Documentation of Mechanical Device: Graduated compression elastic hosiery
[2018-06-29] MEDS: 0.9 % Sodium Chloride 1,000 ML IVC SCH ×2 (18:07→18:09)
[2018-06-29] MEDS: Sennosides 8.6 MG TABLET PO SCH (22:46)
[2018-06-30 06:30] VITALS: BP 154/71
[2018-06-30 06:34] LABS: Basophils % 0.6 %; Eosinophils # 0.3 K/mcL (0.0-0.6); Eosinophils % 4.7 %; Hematocrit 34.6 % (35.3-44.9); Hemoglobin 11.4 g/dL (11.5-15.4); Immature Granulocytes % 1.3 % (0-4); Lymphocytes # 1.9 K/mcL (0.6-4.6); Lymphocytes % 26.4 %; Mean Corpuscular HGB Conc 32.9 g/dL (31.6-35.5); Mean Corpuscular Hemoglobin 26.3 pg (28.0-33.3); Mean Corpuscular Volume 79.9 fL (83.0-100.0); Mean Platelet Volume 9.1 fL (9.4-12.4); Monocytes # 1.1 K/mcL (0.0-1.3); Monocytes % 15.5 %; Neutrophils # 3.7 K/mcL (1.6-8.9); Platelet Count 372 K/mcL (140-400); Red Blood Count 4.33 M/mcL (3.82-4.97); Red Cell Distribution Width 14.3 % (11.5-14.5); Segmented Neutrophils % 51.5 %
[2018-06-30 06:56] LABS: Alanine Aminotransferase 11 Units/L (7-52); Albumin 3.9 g/dL (3.5-5.7); Albumin/Globulin Ratio 1.3 (1.1-2.2); Alkaline Phosphatase 34 Units/L (34-104); Aspartate Amino Transferase 16 Units/L (13-39); BUN/Creatinine Ratio 16 (6-26); Bilirubin,Total 0.3 mg/dL (0.3-1.0); Blood Urea Nitrogen 12 mg/dL (8-23); Calcium 9.6 mg/dL (8.6-10.3); Carbon Dioxide 23 mEq/L (23-29); Chloride 101 mEq/L (98-107); Globulin 2.9 g/dL (2.4-3.5); Glucose 147 mg/dL (70-105); Osmolality,Calculated 272 (280-300); Sodium 130 mEq/L (136-145); Total Protein 6.8 g/dL (6.4-8.9); eGFR For Non-African Americans > 60 (> 60)
[2018-06-30] MEDS ORDERED: cefTRIAXone 1,000 MG in 0.9 % Sodium Chloride Mini Bag 100 ML IVPB SCH (09:00)
[2018-06-30 09:29] LABS: % Iron Saturation 12 % (15-50); Iron 43 mcg/dL (50-170); Transferrin 265 mg/dL (203-362)
[2018-06-30 09:48] LABS: Ferritin 197 ng/mL (10-120)
[2018-06-30] MEDS: (Omega-3/Dha/Epa/Fish Oil [Fish Oil 1,000 Mg Softgel]) PO SCH (09:59)
[2018-06-30 10:11] LABS: Estimated Average Glucose 171 mg/dl; Hemoglobin A1C 7.6 %
[2018-06-30] MEDS: Fenofibrate 54 MG TABLET PO SCH (10:12)
[2018-06-30] MEDS: Sennosides 8.6 MG TABLET PO SCH (10:13)
--- NOTE | 2018-06-30 10:15 | Discharge Summary ---
Orders not resulted at time of discharge: Pending orders 06/29/18 09:00 Osmolality,Urine [UCHEM] Routine Date of Encounter: 06/30/18 Time of Encounter: 10:05 - Discharge Diagnosis (1) Hematuria Priority: Primary Status: Acute Qualifiers: Hematuria type: unspecified type Qualified Code(s): R31.9 - Hematuria, unspecified (2) UTI (urinary tract infection) Priority: Secondary Status: Acute Qualifiers: Urinary tract infection type: site unspecified Hematuria presence: with hematuria Qualified Code(s): N39.0 - Urinary tract infection, site not specified; R31.9 - Hematuria, unspecified (3) Microcytosis Priority: Secondary Status: Acute (4) Weight loss Priority: Secondary Status: Acute (5) Hyponatremia Priority: Secondary Status: Acute (6) Hyperglycemia Priority: Secondary Status: Acute Hospital course: Ms. Baker is a 83 year old female who came to emergency room stating she had UTI symptoms onset approximately one week ago. She went to her PCP office on June 26 and received a prescription for Bactrim. She reports taking it as prescribed without improvement in symptoms of frequency and dysuria. Approximately 0100 today she noticed visible hematuria. She came to emergency room and was evaluated and was admitted to [facility] for ongoing care needs. Initial orders were written by the emergency room physician. I saw her on June 29 and performed a history and physical. CT of chest abdomen pelvis was done to further evaluate. There was stable dilatation the right renal pelvis and proximal ureter without clear obstructing lesion. There was nonobstructing calculus in the inferior pole of the left kidney measuring 9 mm. Renal collecting system dilatation on the left was increased from previous study but no perinephric edema was seen and findings were felt possibly related to scarring. There was no worrisome lymphadenopathy in the chest abdomen or pelvis. Ibuprofen was discontinued. Follow-up labs on June 30 showed hemoglobin decrease slightly to 11.4. Iron study showed iron 43, transferrin saturation 12 %, transferrin 265, and ferritin 197. She will be given ferrous sulfate with vitamin C at discharge. Sodium level had improved to 130 by day of discharge. 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 Urine osmolality is pending at time of discharge. She will remain off ibuprofen which possibly contributed to hematuria and hyponatremia. Urine culture returned showing no growth. She was started on Rocephin empirically in emergency room but she will not continue on antibiotics at discharge. She will be discharged home today and follow with her PCP Charity Pike CNP within 1 week. I recommended she see her urologist in the next 1-2 weeks if hematuria persists. - Time Spent with Patient Total time spent providing and/or coordinating discharge services: - Discharge Medications Home Medications: Allopurinol [Zyloprim 300 MG] 300 mg PO DAILY 02/19/16 [History] Fenofibrate [Tricor] 54 mg PO DAILY 02/19/16 [History] Fluticasone Furoate [Arnuity Ellipta] 100 mcg NS DAILY 02/19/16 [History] Levothyroxine [Synthroid] 50 mcg PO DAILY 02/19/16 [History] [place]-3/Dha/Epa/Fish Oil [Fish Oil 1,000 mg Softgel] 1 each PO BID 02/19/16 [ History] Propranolol [Inderal] 10 mg PO BID 02/19/16 [History] Omeprazole [PriLOSEC] 20 mg PO DAILY 06/29/18 [History] Allergies/Adverse Reactions: 3 Allergy/AdvReac Type Severity Reaction Status Date / Time azithromycin Allergy Hives Verified 02/05/18 18:53 [From Zithromax Z-Silviano] ciprofloxacin [From Cipro] Allergy Hives Verified 04/12/18 15:16 gabapentin Allergy Gastrointestinal Verified 02/05/18 18:53 Upset oxybutynin Allergy Gastrointestinal Verified 02/05/18 18:53 Upset Date of admission: 06/29/18 08:50 Primary care physician: Charity Pike CNP Consults: 06/29/18 09:49 Consult to Nutrition [CONS] Routine Comment: Consulting Provider: NUTRITION Reason for Dietary Consult: MST Score - Constitutional Vitals: Temp Pulse Resp BP Pulse Ox 97.9 F 94 16 154/71 96 06/30/18 06:29 06/30/18 06:29 06/30/18 06:29 06/30/18 06:29 06/30/18 06:29 - Patient Status Disposition: Home, Self-Care Condition: Fair - Discharge Instructions Follow Up With: Charity Pike CNP [Primary Care Provider] - 1 week - Diet and Activity Activity: resume usual activities as tolerated Diet: advance to your usual diet - VTE Documentation of Mechanical Device: Graduated compression elastic hosiery
--- NOTE | 2018-06-30 10:31 | Physician Discharge Referral ---
Home Health/Hosp Referral Info Transfer to: Home Health Attending Provider: David Provider in Charge Post Discharge: PCP Wendy) - Diagnosis (1) Hematuria Priority: Primary Status: Acute (2) UTI (urinary tract infection) Priority: Secondary Status: Acute (3) Microcytosis Priority: Secondary Status: Acute (4) Weight loss Priority: Secondary Status: Acute (5) Hyponatremia Priority: Secondary Status: Acute (6) Hyperglycemia Priority: Secondary Status: Acute - Respiratory Orders Smoking Cessation: Smoking cessation has been advised. For more information, call the [place] Tobacco Quit Line at 5-313-GZFF-NOW. - Diet/Nutrition Diet/Nutrition Orders: Regular - Activity Activity Orders: Ambulate - Services Needed Following services are medically necessary services: Nursing, Home Health Aide, Physical Therapy, Occupational Therapy - Transfer Medications Prescriptions: Ascorbic Acid [Vitamin C] 500 mg PO DAILY #30 tablet Ferrous Sulfate 325 mg PO DAILY #30 tablet Home Medications: Allopurinol [Zyloprim 300 MG] 300 mg PO DAILY 02/19/16 [History] Fenofibrate [Tricor] 54 mg PO DAILY 02/19/16 [History] Fluticasone Furoate [Arnuity Ellipta] 100 mcg NS DAILY 02/19/16 [History] Levothyroxine [Synthroid] 50 mcg PO DAILY 02/19/16 [History] [place]-3/Dha/Epa/Fish Oil [Fish Oil 1,000 mg Softgel] 1 each PO BID 02/19/16 [ History] Propranolol [Inderal] 10 mg PO BID 02/19/16 [History] Omeprazole [PriLOSEC] 20 mg PO DAILY 06/29/18 [History] Ascorbic Acid [Vitamin C] 500 mg PO DAILY #30 tablet 06/30/18 [Rx] Ferrous Sulfate 325 mg PO DAILY #30 tablet 06/30/18 [Rx] Allergies/Adverse Reactions: 3 Allergy/AdvReac Type Severity Reaction Status Date / Time azithromycin Allergy Hives Verified 02/05/18 18:53 [From Zithromax Z-Silviano] ciprofloxacin [From Cipro] Allergy Hives Verified 04/12/18 15:16 gabapentin Allergy Gastrointestinal Verified 02/05/18 18:53 Upset oxybutynin Allergy Gastrointestinal Verified 02/05/18 18:53 Upset Certification: Further, I certify that my clinical findings support that this patient is homebound (i.e. absences from home require considerable and taxing effort and are for medical reasons or mandaeism services or infrequently or short duration when for other reasons) because: Homebound Reason: Leaving home requires considerable and taxing effort due to condition (weakness, hematuria) Attestation: My signature below is to certify that this patient is under my care and that I, or nurse practitioner, or a physician's biology research assistant working with me, has a face-to -face encounter with this patient.
== END 2018-06-30 11:35 | disposition home or self-care (01) ==
LOC: EMEROOPIK 06:30 → INPPIK 06:30
PROVIDERS: ADMIT Internal Medicine; ATTEND Internal Medicine

== ENCOUNTER 2018-07-10 19:00 | Observation (INO) ==
[2018-07-10] MEDS ORDERED: cefTRIAXone 1,000 MG in Water for inj. (sterile) 20 ML 10 ML IVP ONE (19:56)
[2018-07-10] MEDS ORDERED: Ondansetron 4 MG/2 ML VIAL IVP ONE (19:58)
--- NOTE | 2018-07-10 20:01 | Emergency Department Note ---
Disposition Clinical Impression: Urinary tract infection in elderly patient Fever Qualifiers: Fever type: due to other condition Qualified Code(s): R50.81 - Fever presenting with conditions classified elsewhere Disposition: Admitted As Inpatient Condition: Fair Referrals: Charity Pike CNP [Primary Care Provider] - Forms: ED Satisfaction Letter Time of Disposition: 21:50 General Adult HPI - General Chief complaint: ED Urogenital-Female Stated complaint: UTI SX/FEVER Time Seen by Provider: 07/10/18 19:50 Source: patient, EMS Mode of arrival: EMS Limitations: no limitations Nursing Notes Reviewed: Yes Vital Signs Reviewed: Yes - History of Present Illness HPI Narrative: She presents feeling ill over the past several days. She is not eating. She is weak. Feels very thirsty. She was recently seen by her PCP and had a urine tested and culture. That came back today positive for urinary tract infection. Her doctor phoned and Aminta. Patient took the first dose at about 3:00 this afternoon. However despite taking those medications she feels bad. She is nauseous although she is not vomiting. She rates the severity of her symptoms as severe. She has no associated abdominal pain but she does complain of burning with urination. Pt Subjective Complaint: Weakness, urinary tract infection Pain Scale: 8 Improves with: nothing Worsens with: nothing Treatments Prior to Arrival: other (Prescription antibiotic) - Related Data Home Medications Medication Instructions Recorded Confirmed Allopurinol [Zyloprim 300 MG] 300 mg PO DAILY 02/19/16 07/10/18 Fenofibrate [Tricor] 54 mg PO DAILY 02/19/16 07/10/18 Fluticasone Furoate [Arnuity 100 mcg NS DAILY 02/19/16 07/10/18 Ellipta] Levothyroxine [Synthroid] 50 mcg PO DAILY 02/19/16 07/10/18 [place]-3/Dha/Epa/Fish Oil [Fish Oil 1 each PO BID 02/19/16 07/10/18 1,000 mg Softgel] Propranolol [Inderal] 10 mg PO BID 02/19/16 07/10/18 Omeprazole [PriLOSEC] 20 mg PO DAILY 06/29/18 07/10/18 Previous Rx's Medication Instructions Recorded Ascorbic Acid [Vitamin C] 500 mg PO DAILY #30 tablet 06/30/18 Ferrous Sulfate 325 mg PO DAILY #30 tablet 06/30/18 Allergies Allergy/AdvReac Type Severity Reaction Status Date / Time azithromycin Allergy Hives Verified 07/10/18 19:23 [From Zithromax Z-Silviano] ciprofloxacin [From Cipro] Allergy Hives Verified 07/10/18 19:23 gabapentin Allergy Gastrointestinal Verified 07/10/18 19:23 Upset oxybutynin Allergy Gastrointestinal Verified 07/10/18 19:23 Upset All systems ED: reviewed and negative except as stated. Constitutional: Reports: fever, chills ENT ED: Denies: ear pain, throat pain, congestion Cardiovascular: Denies: chest pain, palpitations Respiratory: Denies: cough, dyspnea Gastrointestinal: Reports: nausea. Denies: abdominal pain, vomiting, diarrhea Genitourinary: Reports: urgency, dysuria, frequency Musculoskeletal: Denies: back pain Integumentary: Denies: rash Neurological: Denies: headache Past Medical History - Past Medical History Attestation: Yes The following information was validated with the patient. 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 Absent: scleral icterus, conjunctival injection - ENT ENT exam: normal exam, normal oropharynx, mucous membranes moist, normal external ear exam - Neck Neck exam: Present: normal inspection, full ROM. Absent: meningismus - Chest Chest inspection: Present: normal inspection, symmetric chest wall rise. Absent : tenderness - Respiratory Respiratory exam: Present: normal lung sounds bilaterally. Absent: respiratory distress, wheezes - Cardiovascular Cardiovascular exam: Present: regular rate, normal rhythm, normal heart sounds - Abdominal Exam Abdominal exam: Present: soft, Non-Tender, normal bowel sounds - Extremities Exam Extremities exam: Present: normal inspection. Absent: pedal edema - Neurological Exam Neurological exam: Present: alert, oriented X3 - Psychiatric Psychiatric exam: Present: normal affect, normal mood - Skin Skin exam: Present: warm, dry. Absent: rash Course Course Narrative: Patient describes general illness and has a confirmed pseudomonas infection in her urine by urine culture. Here she has a temperature of 100.8. I pretty much puts her at sepsis criteria. Fortunately her heart rate or blood pressure are fine. I initiated sepsis workup on her. I ordered IV Rocephin. Patient will need to be admitted but I will get the results back to make sure there is not anything else needs to be addressed emergently. - Reevaluation(s) Reevaluation #1: Labs look okay. Patient is doing well. I will given her Rocephin and I spoke with the hospitalist and he is given verbal orders to admit the patient to the hospital. Patient is hemodynamically stable. Time: 21:48 - Consultations Consultation #1: Dr. Hernandez, hospitalist - I spoke with the hospitalist of little while ago. We discussed the case and he accepted patient for admission to the hospital. Time: 21:48 Vital Signs Temperature 100.8 F H 07/10/18 19:17 Pulse Rate 78 07/10/18 19:17 Respiratory Rate 20 07/10/18 19:17 Blood Pressure 127/72 07/10/18 19:17 O2 Sat by Pulse Oximetry 96 07/10/18 19:17 Temperature 98.5 F 07/10/18 21:13 Pulse Rate 75 07/10/18 20:09 Respiratory Rate 20 07/10/18 20:09 Blood Pressure 127/72 07/10/18 20:09 O2 Sat by Pulse Oximetry 96 07/10/18 20:09 Oxygen Delivery Oxygen Delivery Room Air Medical Decision Making - Medical Records Medical records reviewed: Yes I reviewed the patient's medical records. - Lab Data Lab results reviewed: Yes I reviewed the patient's lab results. Result diagrams: 07/10/18 20:16 07/10/18 20:16 Lab Results 07/10/18 07/10/18 07/10/18 Range/Units 20:16 20:16 20:16 WBC 10.2 (4.3-11.1) K/mcL RBC 4.25 (3.82-4.97) M/mcL Hgb 11.2 L (11.5-15.4) g/dL Hct 33.4 L (35.3-44.9) % MCV 78.6 L (83.0-100.0) fL MCH 26.4 L (28.0-33.3) pg MCHC 33.5 (31.6-35.5) g/dL RDW 14.3 (11.5-14.5) % Plt Count 350 (140-400) K/mcL MPV 8.3 L (9.4-12.4) fL Immature Gran % 0.9 (0-4) % Seg Neutrophils % 74.4 % Lymphocytes % 9.0 % Monocytes % 15.4 % Eosinophils % 0.0 % Basophils % 0.3 % Neutrophils # 7.6 (1.6-8.9) K/mcL Lymphocytes # 0.9 (0.6-4.6) K/mcL Monocytes # 1.6 H (0.0-1.3) K/mcL Eosinophils # 0.0 (0.0-0.6) K/mcL Basophils # 0.0 (0.0-0.2) K/mcL PT 19.8 H (9.4-12.1) Seconds INR 1.8 APTT 33.2 (26.0-36.0) Seconds Sample Site ABG pH (7.32-7.45) pH Units ABG pCO2 (35-45) mmHg ABG pO2 (85-104) mmHg ABG HCO3 (21-27) mEq/L ABG Total CO2 (20-26) mEq/L ABG O2 Saturation (95-98) % ABG Base Excess (-2 to 3) mEq/L Braulio Test Inspired O2 (1-15=lpm yr96-360=%) Sodium 128 L (136-145) mEq/L Potassium 3.5 (3.5-5.1) mEq/L Chloride 94 L (98-107) mEq/L Carbon Dioxide 23 (23-29) mEq/L BUN 12 (8-23) mg/dL Creatinine 0.65 (0.60-1.20) mg/dL Est GFR ( Amer) > 60 (> 60) Est GFR (Non-Af Amer) > 60 (> 60) BUN/Creatinine Ratio 18 (6-26) Glucose 171 H (70-105) mg/dL Calculated Osmolality 270 L (280-300) Lactic Acid (0.5-2.2) mmol/L Calcium 9.5 (8.6-10.3) mg/dL Phosphorus 1.6 L (2.7-4.5) mg/dL Magnesium 1.9 (1.6-2.6) mg/dL Total Bilirubin 0.8 (0.3-1.0) mg/dL Direct Bilirubin 0.2 (0.0-0.2) mg/dL Indirect Bilirubin 0.6 (0.0-1.2) mg/dL AST 15 (13-39) Units/L ALT 11 (7-52) Units/L Alkaline Phosphatase 38 (34-104) Units/L Troponin I < 0.03 (< 0.04) ng/mL Serum Total Protein 6.9 (6.4-8.9) g/dL Albumin 3.6 (3.5-5.7) g/dL Globulin 3.3 (2.4-3.5) g/dL Albumin/Globulin Ratio 1.1 (1.1-2.2) 07/10/18 07/10/18 Range/Units 20:16 20:17 WBC (4.3-11.1) K/mcL RBC (3.82-4.97) M/mcL Hgb (11.5-15.4) g/dL Hct (35.3-44.9) % MCV (83.0-100.0) fL MCH (28.0-33.3) pg MCHC (31.6-35.5) g/dL RDW (11.5-14.5) % Plt Count (140-400) K/mcL MPV (9.4-12.4) fL Immature Gran % (0-4) % Seg Neutrophils % % Lymphocytes % % Monocytes % % Eosinophils % % Basophils % % Neutrophils # (1.6-8.9) K/mcL Lymphocytes # (0.6-4.6) K/mcL Monocytes # (0.0-1.3) K/mcL Eosinophils # (0.0-0.6) K/mcL Basophils # (0.0-0.2) K/mcL PT (9.4-12.1) Seconds INR APTT (26.0-36.0) Seconds Sample Site R Brach ABG pH 7.49 H (7.32-7.45) pH Units ABG pCO2 30 L (35-45) mmHg ABG pO2 71 L (85-104) mmHg ABG HCO3 23 (21-27) mEq/L ABG Total CO2 24 (20-26) mEq/L ABG O2 Saturation 96 (95-98) % ABG Base Excess 1 (-2 to 3) mEq/L Braulio Test N/A Inspired O2 21.0 (1-15=lpm th21-823=%) Sodium (136-145) mEq/L Potassium (3.5-5.1) mEq/L Chloride (98-107) mEq/L Carbon Dioxide (23-29) mEq/L BUN (8-23) mg/dL Creatinine (0.60-1.20) mg/dL Est GFR ( Amer) (> 60) Est GFR (Non-Af Amer) (> 60) BUN/Creatinine Ratio (6-26) Glucose (70-105) mg/dL Calculated Osmolality (280-300) Lactic Acid 0.9 (0.5-2.2) mmol/L Calcium (8.6-10.3) mg/dL Phosphorus (2.7-4.5) mg/dL Magnesium (1.6-2.6) mg/dL Total Bilirubin (0.3-1.0) mg/dL Direct Bilirubin (0.0-0.2) mg/dL Indirect Bilirubin (0.0-1.2) mg/dL AST (13-39) Units/L ALT (7-52) Units/L Alkaline Phosphatase (34-104) Units/L Troponin I (< 0.04) ng/mL Serum Total Protein (6.4-8.9) g/dL Albumin (3.5-5.7) g/dL Globulin (2.4-3.5) g/dL Albumin/Globulin Ratio (1.1-2.2) - EKG Data EKG #1 EKG attestation: Yes I reviewed and interpreted this EKG. EKG results narrative: Twelve-lead EKG performed at 2005 p.m. and interpreted by ED physician shows sinus rhythm at a rate of 73. Normal axis. Good hour progression across precordium. Voltage criteria for LVH. No acute ischemic changes. Intervals within normal limits.
[2018-07-10 20:21] LABS: ABG Base Excess 1 mEq/L (-2 to 3); ABG HCO3 23 mEq/L (21-27); ABG Oxygen Saturation 96 % (95-98); ABG PCO2 30 mmHg (35-45); ABG PH 7.49 pH Units (7.32-7.45); ABG PO2 71 mmHg (85-104); ABG TCO2 24 mEq/L (20-26)
[2018-07-10 20:24] LABS: Basophils % 0.3 %; Hematocrit 33.4 % (35.3-44.9); Hemoglobin 11.2 g/dL (11.5-15.4); Immature Granulocytes % 0.9 % (0-4); Lymphocytes # 0.9 K/mcL (0.6-4.6); Mean Corpuscular HGB Conc 33.5 g/dL (31.6-35.5); Mean Corpuscular Hemoglobin 26.4 pg (28.0-33.3); Mean Corpuscular Volume 78.6 fL (83.0-100.0); Mean Platelet Volume 8.3 fL (9.4-12.4); Monocytes # 1.6 K/mcL (0.0-1.3); Monocytes % 15.4 %; Neutrophils # 7.6 K/mcL (1.6-8.9); Platelet Count 350 K/mcL (140-400); Red Blood Count 4.25 M/mcL (3.82-4.97); Red Cell Distribution Width 14.3 % (11.5-14.5); Segmented Neutrophils % 74.4 %
[2018-07-10 20:32] LABS: INR 1.8; Prothrombin Time 19.8 Seconds (9.4-12.1)
[2018-07-10 20:35] LABS: Activated Partial Thrombo Time 33.2 Seconds (26.0-36.0)
[2018-07-10] MEDS: 0.9 % Sodium Chloride 1,000 ML IVC SCH ×3 (20:36→23:43)
[2018-07-10 20:41] LABS: Alanine Aminotransferase 11 Units/L (7-52); Albumin 3.6 g/dL (3.5-5.7); Albumin/Globulin Ratio 1.1 (1.1-2.2); Alkaline Phosphatase 38 Units/L (34-104); Aspartate Amino Transferase 15 Units/L (13-39); BUN/Creatinine Ratio 18 (6-26); Bilirubin,Direct 0.2 mg/dL (0.0-0.2); Bilirubin,Indirect 0.6 mg/dL (0.0-1.2); Bilirubin,Total 0.8 mg/dL (0.3-1.0); Blood Urea Nitrogen 12 mg/dL (8-23); Calcium 9.5 mg/dL (8.6-10.3); Carbon Dioxide 23 mEq/L (23-29); Chloride 94 mEq/L (98-107); Globulin 3.3 g/dL (2.4-3.5); Glucose 171 mg/dL (70-105); Magnesium 1.9 mg/dL (1.6-2.6); Osmolality,Calculated 270 (280-300); Phosphorous 1.6 mg/dL (2.7-4.5); Potassium 3.5 mEq/L (3.5-5.1); Sodium 128 mEq/L (136-145); Total Protein 6.9 g/dL (6.4-8.9); eGFR For Non-African Americans > 60 (> 60)
[2018-07-10 20:49] LABS: Troponin I < 0.03 ng/mL (< 0.04)
[2018-07-10] MEDS ORDERED: Naloxone 0.4 MG/ML INJ IVP PRN (23:06)
[2018-07-10] MEDS ORDERED: cefTRIAXone 1,000 MG in Water for inj. (sterile) 20 ML 10 ML IVPB SCH (23:06)
[2018-07-11] MEDS ORDERED: Acetaminophen 325 MG TABLET PO PRN ×2 (06:09→20:25)
[2018-07-11] MEDS: Levothyroxine 25 MCG TABLET PO SCH (06:27)
[2018-07-11] MEDS: Fluticasone Propionate Nasal 50 MCG/SPRAY BOTTLE NS SCH (07:47)
[2018-07-11] MEDS: Fenofibrate 54 MG TABLET PO SCH (07:47)
[2018-07-11] MEDS ORDERED: Ascorbic Acid 500 MG TABLET PO SCH (09:00)
[2018-07-11] MEDS: 0.9 % Sodium Chloride 1,000 ML IVC SCH (11:33)
--- NOTE | 2018-07-11 12:24 | Internal Med History&Physical ---
Date of Encounter: 07/11/18 Time of Encounter: 11:50 Assessment and Plan (1) Hyponatremia Current visit: No Status: Acute Suspect SIADH. Order urine osmolality. (2) UTI (urinary tract infection) Current visit: No Status: Acute She has been started on Rocephin empirically. Check UA C/S. Add lactobacillus. Qualifiers: Urinary tract infection type: site unspecified Hematuria presence: with hematuria Qualified Code(s): N39.0 - Urinary tract infection, site not specified; R31.9 - Hematuria, unspecified (3) Microcytosis Current visit: No Status: Acute Possibly due to iron deficiency. She has not been taking prescribed ferrous sulfate and ascorbic acid from previous discharge orders. Will restart and monitor labs. (4) Weight loss Current visit: No Status: Acute CT scan 2 weeks ago did not show worrisome pathology. Order CA 19-9 to further evaluate. (5) DM type 2 (diabetes mellitus, type 2) Current visit: Yes Status: Chronic Hemoglobin A1c was 7.6% last admission. Review of blood sugars show hyperglycemia present for several years. Will start metformin and do Accu- Cheks with SSI. Qualifiers: Diabetes mellitus [facility] insulin use: without termite renewal inspector use Diabetes mellitus complication status: with unspecified complications Qualified Code(s) : E11.8 - Type 2 diabetes mellitus with unspecified complications Internal Medicine - H&P: HPI Chief complaint: Weakness Admitted From: Emergency Dept Plans for Post Hospital Care: Home History of present illness: Ms. Baker is a 83 year old female who came to emergency room stating she had progressive weakness with poor intake of food and fluids over the past few days. She reports she had been diagnosed with a UTI a few days ago and started on Levaquin yesterday before coming to emergency room. She was evaluated in emergency room and felt to have UTI and failure to thrive. She was admitted to [facility] floor for ongoing care needs. She was discharged from [facility] June 30 following an overnight stay with diagnosis of UTI. She reports frequent UTIs in the past. She follows with a urologist in [place]. She had prolapse repair with mesh placement 2002 at [facility] and had umbilical hernia and colpopexy April 2018 at [facility]. She has had kidney stones and ovary cyst in the past. She denies other kidney or bladder disorders. Past Med Surg Social Fam HX - Past Medical History Medical history: arthritis, diabetes, hyperlipidemia, kidney stones, renal disease, thyroid disease, other Additional medical history: spinal stenosis. severe rectocele. essential tremors. kidney stones Psychiatric history: no psych history - Past Surgical History Surgical History: appendectomy, cataract, cholecystectomy, herniorrhaphy, hip replacement, hysterectomy, orthopedic, other, ureteral stent, other Additional surgical history: 4 cornea transplants - Social History Smoking Status: Never smoker Smokeless Tobacco Status: No Alcohol use: none Drug use: none - Family History Mother Living Status: Age at : 73 Cause of : Artherosclerosis Hx Family Cardiac Disorders: Yes Internal Medicine - H&P: Meds Allopurinol [Zyloprim 300 MG] 300 mg PO DAILY 02/19/16 [History] Fenofibrate [Tricor] 54 mg PO DAILY 02/19/16 [History] Fluticasone Furoate [Arnuity Ellipta] 100 mcg NS DAILY 02/19/16 [History] Levothyroxine [Synthroid] 50 mcg PO DAILY 02/19/16 [History] [place]-3/Dha/Epa/Fish Oil [Fish Oil 1,000 mg Softgel] 1 each PO BID 02/19/16 [ History] Propranolol [Inderal] 10 mg PO BID 02/19/16 [History] Omeprazole [PriLOSEC] 20 mg PO DAILY 06/29/18 [History] Ascorbic Acid [Vitamin C] 500 mg PO DAILY #30 tablet 06/30/18 [Rx] Ferrous Sulfate 325 mg PO DAILY #30 tablet 06/30/18 [Rx] 3 Allergy/AdvReac Type Severity Reaction Status Date / Time azithromycin Allergy Hives Verified 07/10/18 19:23 [From Zithromax Z-Silviano] ciprofloxacin [From Cipro] Allergy Hives Verified 07/10/18 19:23 gabapentin Allergy Gastrointestinal Verified 07/10/18 19:23 Upset oxybutynin Allergy Gastrointestinal Verified 07/10/18 19:23 Upset All Systems PM: A 10-system review of systems was performed and is negative for pertinent findings except as documented above in the HPI. Review of systems: Review of systems from her May 2018 [facility] hospitalization were reviewed and revised as below. Gen.: Her weight has decreased from 68.492 kg on 04/12/2018 to 63.673 kg at present. She reported at the March hospitalization she had lost approximately 20 -25 pounds in the past year, unintentionally. She attributes this to poor appetite. CT scans of chest abdomen and pelvis done last hospitalization 2 weeks ago showed no worrisome pathology. Cardiovascular: She denies hypertension [place] heart failure angina DVT or pulmonary embolus Respiratory: She is a lifelong nonsmoker and denies chronic lung disease GI: She has had cholecystectomy. She has GERD. She denies disorders of her liver or exocrine pancreas : As per history of present illness Neurologic: She has essential tremor. She denies large distribution strokes or seizures. Endocrine: She has hypothyroidism and hypertriglyceridemia. She was unaware she has DM 2 with hemoglobin A1c 7.6% 06/30/2018.. Hematology/oncology: She denies blood disorders cancers or anemia Psychiatric: She denies anxiety depression or other mental health issues [place] skeletal: She had elective left total hip replacement in the past. She has history of gout. She denies significant arthritis or other bone joint or muscle disorders. - Constitutional Vitals: Temp Pulse Resp BP Pulse Ox 98.3 F 76 14 119/62 96 07/11/18 07:27 07/11/18 07:27 07/11/18 07:27 07/11/18 07:27 07/11/18 08:21 Exam: Gen.: She is a well-developed well-nourished female sitting comfortably in chair at bedside who appears in no acute distress. HEENT: Head is atraumatic and normal cephalic. Eyes: EOMI. There is no scleral icterus. Mouth: Mucosa is moist. Neck: Supple and nontender. There is no thyromegaly or adenopathy noted. Heart: Regular without murmurs gallops or ectopics Lungs: No wheezes or crackles are heard. Abdomen: Soft and nontender. Exam is limited because she is in the seated position. Extremities: There is no cyanosis edema or clubbing noted. Dorsalis pedis and posttibial pulses are trace to 1+ palpable bilaterally. Neurologic: Mental status: She is talkative and a good historian. Cranial nerves: Smile is symmetric. Forehead wrinkles bilaterally. Tongue protrudes midline. EOMI. Motor: There is no pronator drift. Cerebellar: Finger to nose is intact bilaterally. Skin: Warm and dry Internal Med - H&P Results - Labs CBC & Chem 7: 07/10/18 20:16 07/10/18 20:16
[2018-07-11] MEDS: *HR* Metformin 500 MG TABLET PO SCH (17:26)
[2018-07-11] MEDS: cefTRIAXone 1,000 MG in Water for inj. (sterile) 20 ML 10 ML IVPB SCH (20:41)
[2018-07-11] MEDS: Lactobacillus 1 EACH CAP.SPRINK PO SCH (20:42)
[2018-07-11 22:03] LABS: Clarity,Urine Cloudy (Clear); Color,Urine Orange (Yellow)
[2018-07-11 22:05] LABS: Bacteria,Urine Moderate per hpf (None-Few); Squamous Epithelial Cell,Urine Moderate per lpf (None-Few); WBC,Urine 50-100 per hpf (0-3)
[2018-07-12] MEDS: Levothyroxine 25 MCG TABLET PO SCH (05:40)
[2018-07-12] MEDS: Ascorbic Acid 500 MG TABLET PO SCH (05:40)
[2018-07-12 05:50] LABS: Basophils # 0.1 K/mcL (0.0-0.2); Basophils % 0.7 %; Eosinophils # 0.1 K/mcL (0.0-0.6); Eosinophils % 1.1 %; Hematocrit 39.5 % (35.3-44.9); Hemoglobin 12.6 g/dL (11.5-15.4); Immature Granulocytes % 0.4 % (0-4); Lymphocytes # 1.4 K/mcL (0.6-4.6); Lymphocytes % 19.2 %; Mean Corpuscular HGB Conc 31.9 g/dL (31.6-35.5); Mean Corpuscular Hemoglobin 26.1 pg (28.0-33.3); Mean Platelet Volume 8.8 fL (9.4-12.4); Monocytes # 0.9 K/mcL (0.0-1.3); Monocytes % 12.4 %; Neutrophils # 4.7 K/mcL (1.6-8.9); Platelet Count 364 K/mcL (140-400); Red Blood Count 4.82 M/mcL (3.82-4.97); Red Cell Distribution Width 14.6 % (11.5-14.5); Segmented Neutrophils % 66.2 %
[2018-07-12 06:13] LABS: BUN/Creatinine Ratio 15 (6-26); Blood Urea Nitrogen 9 mg/dL (8-23); Calcium 9.4 mg/dL (8.6-10.3); Carbon Dioxide 21 mEq/L (23-29); Chloride 104 mEq/L (98-107); Glucose 107 mg/dL (70-105); Osmolality,Calculated 279 (280-300); Potassium 3.3 mEq/L (3.5-5.1); Sodium 135 mEq/L (136-145); eGFR For Non-African Americans > 60 (> 60)
[2018-07-12] MEDS: Fenofibrate 54 MG TABLET PO SCH (07:58)
[2018-07-12] MEDS: *HR* Metformin 500 MG TABLET PO SCH ×2 (07:58→17:09)
[2018-07-12] MEDS: Lactobacillus 1 EACH CAP.SPRINK PO SCH ×2 (07:59→20:46)
[2018-07-12] MEDS: Sennosides 8.6 MG TABLET PO SCH (08:00)
[2018-07-12] MEDS: Fluticasone Propionate Nasal 50 MCG/SPRAY BOTTLE NS SCH (08:02)
--- NOTE | 2018-07-12 10:02 | Internal Med Progress Note ---
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 Sodium improved 135 today. Continue present regimen. (2) UTI (urinary tract infection) Current Visit: No Status: Acute Assessment and plan: Continue empiric Rocephin with lactobacillus. Urine culture report pending. Qualifiers: Urinary tract infection type: site unspecified Hematuria presence: with hematuria Qualified Code(s): N39.0 - Urinary tract infection, site not specified; R31.9 - Hematuria, unspecified (3) Microcytosis Current Visit: No Status: Acute Assessment and plan: July 12. Continue ferrous sulfate and vitamin C. (4) Weight loss Current Visit: No Status: Acute Assessment and plan: July 12. CT scan of chest, abdomen, and pelvis last admission did not show worrisome pathology. CA 19-9 pending. (5) DM type 2 (diabetes mellitus, type 2) Current Visit: Yes Status: Chronic Assessment and plan: July 12. Hemoglobin A1c 7.6% last admission. Continue metformin and Accu- Cheks with SSI. Qualifiers: Diabetes mellitus roasterman insulin use: without roasterman use Diabetes mellitus complication status: with unspecified complications Qualified Code(s) : E11.8 - Type 2 diabetes mellitus with unspecified complications (6) Weakness Current Visit: No Status: Acute Assessment and plan: July 12. Will order PT and OT evaluation. - Subjective Interval history: July 12. She has no new complaints. She does not feel well and states she is still very weak and does not feel able to return to independent living at home at this time. - Constitutional Vitals: Temp Pulse Resp BP Pulse Ox 98.3 F 71 16 129/66 96 07/12/18 07:01 07/12/18 07:01 07/12/18 07:01 07/12/18 07:01 07/12/18 07:01 Exam: She is lying in bed and appears in no acute distress. She does appear weak. I reviewed her medications and lab results. Internal Medicine: Result - Labs CBC & Chem 7: 07/12/18 05:17 07/12/18 05:17 Labs: Short CBC 07/12/18 Range/Units 05:17 WBC 7.1 (4.3-11.1) K/mcL Hgb 12.6 (11.5-15.4) g/dL Hct 39.5 (35.3-44.9) % Plt Count 364 (140-400) K/mcL Neutrophils # 4.7 (1.6-8.9) K/mcL BMP 07/12/18 05:17 Sodium 135 L Potassium 3.3 L Chloride 104 Carbon Dioxide 21 L BUN 9 Creatinine 0.59 L Glucose 107 H Calcium 9.4 Urine 07/11/18 Range/Units 21:44 Urine Color [place] A (Yellow) Urine Clarity Cloudy A (Clear) Urine pH TNP Ur Specific [place] TNP Urine Protein TNP Urine Glucose (UA) TNP - ABG Interpretation ABG results: ABG ABG pH 7.49 pH Units (7.32-7.45) H 07/10/18 20:17 ABG pCO2 30 mmHg (35-45) L 07/10/18 20:17 ABG pO2 71 mmHg (85-104) L 07/10/18 20:17 ABG O2 Saturation 96 % (95-98) 07/10/18 20:17 PT/INR, D-dimer PT 19.8 Seconds (9.4-12.1) H 07/10/18 20:16 Consult Discharge Plan - Plan Referrals: Charity Pike, SENIOR VICE PRESIDENT [Primary Care Provider] - 1 week
[2018-07-12] MEDS: Ondansetron ODT 4 MG TAB.RAPDIS SL PRN (11:38)
[2018-07-12] MEDS ORDERED: Ondansetron ODT 4 MG TAB.RAPDIS SL PRN (12:08)
[2018-07-12] MEDS: cefTRIAXone 1,000 MG in Water for inj. (sterile) 20 ML 10 ML IVPB SCH (20:45)
[2018-07-13] MEDS: Ascorbic Acid 500 MG TABLET PO SCH (05:53)
[2018-07-13] MEDS: Levothyroxine 25 MCG TABLET PO SCH (05:53)
[2018-07-13 06:44] LABS: Basophils # 0.1 K/mcL (0.0-0.2); Basophils % 0.9 %; Eosinophils # 0.1 K/mcL (0.0-0.6); Eosinophils % 2.5 %; Hematocrit 37.4 % (35.3-44.9); Hemoglobin 11.8 g/dL (11.5-15.4); Immature Granulocytes % 0.4 % (0-4); Lymphocytes # 1.5 K/mcL (0.6-4.6); Lymphocytes % 26.8 %; Mean Corpuscular HGB Conc 31.6 g/dL (31.6-35.5); Mean Corpuscular Hemoglobin 26.3 pg (28.0-33.3); Mean Corpuscular Volume 83.3 fL (83.0-100.0); Mean Platelet Volume 9.5 fL (9.4-12.4); Monocytes # 0.7 K/mcL (0.0-1.3); Monocytes % 11.8 %; Neutrophils # 3.2 K/mcL (1.6-8.9); Platelet Count 372 K/mcL (140-400); Red Blood Count 4.49 M/mcL (3.82-4.97); Red Cell Distribution Width 14.7 % (11.5-14.5); Segmented Neutrophils % 57.6 %
[2018-07-13] MEDS: Sennosides 8.6 MG TABLET PO SCH (10:55)
[2018-07-13] MEDS: Lactobacillus 1 EACH CAP.SPRINK PO SCH ×2 (10:55→21:02)
[2018-07-13] MEDS: Fenofibrate 54 MG TABLET PO SCH (10:56)
[2018-07-13] MEDS: *HR* Metformin 500 MG TABLET PO SCH ×2 (10:57→17:27)
--- NOTE | 2018-07-13 11:39 | Internal Med Progress Note ---
Date of Encounter: 07/13/18 Time of Encounter: 11:32 - Assessment and plan (1) Hyponatremia Current Visit: No Status: Acute Assessment and plan: July 12. 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 Sodium improved 135 today. Continue present regimen. July 13. Recheck labs in a.m. (2) UTI (urinary tract infection) Current Visit: No Status: Acute Assessment and plan: July 12. Continue empiric Rocephin with lactobacillus. Urine culture report pending. July 13. No urine culture report available. Continue empiric Rocephin with lactobacillus. Qualifiers: Urinary tract infection type: site unspecified Hematuria presence: with hematuria Qualified Code(s): N39.0 - Urinary tract infection, site not specified; R31.9 - Hematuria, unspecified (3) Microcytosis Current Visit: No Status: Acute Assessment and plan: July 12. Continue ferrous sulfate and vitamin C. (4) Weight loss Current Visit: No Status: Acute Assessment and plan: July 12. CT scan of chest, abdomen, and pelvis last admission did not show worrisome pathology. CA 19-9 pending. (5) DM type 2 (diabetes mellitus, type 2) Current Visit: Yes Status: Chronic Assessment and plan: July 12. Hemoglobin A1c 7.6% last admission. Continue metformin and Accu- Cheks with SSI. July 13. Blood sugars acceptable. Continue metformin and Accu-Cheks with SSI. Qualifiers: Diabetes mellitus half-way insulin use: without half-way use Diabetes mellitus complication status: with unspecified complications Qualified Code(s) : E11.8 - Type 2 diabetes mellitus with unspecified complications (6) Weakness Current Visit: No Status: Acute Assessment and plan: July 12. Will order PT and OT evaluation. - Subjective Interval history: July 12. She has no new complaints. She does not feel well and states she is still very weak and does not feel able to return to independent living at home at this time. July 13. She has no new complaints and states she feels better. She states however she does not feel strong enough yet to return to independent living. - Constitutional Vitals: Temp Pulse Resp BP Pulse Ox 98.4 F 69 14 132/59 97 07/13/18 07:17 07/13/18 07:17 07/13/18 07:17 07/13/18 07:07/13/18 07:17 Exam: She is resting comfortably in a chair at bedside and appears in no acute distress. Her affect is cheerful. I reviewed her medications and lab results. Internal Medicine: Result - Labs CBC & Chem 7: 07/13/18 05:49 07/12/18 05:17 Labs: Short CBC 07/13/18 Range/Units 05:49 WBC 5.5 (4.3-11.1) K/mcL Hgb 11.8 (11.5-15.4) g/dL Hct 37.4 (35.3-44.9) % Plt Count 372 (140-400) K/mcL Neutrophils # 3.2 (1.6-8.9) K/mcL - ABG Interpretation ABG results: ABG ABG pH 7.49 pH Units (7.32-7.45) H 07/10/18 20:17 ABG pCO2 30 mmHg (35-45) L 07/10/18 20:17 ABG pO2 71 mmHg (85-104) L 07/10/18 20:17 ABG O2 Saturation 96 % (95-98) 07/10/18 20:17 PT/INR, D-dimer PT 19.8 Seconds (9.4-12.1) H 07/10/18 20:16 Consult Discharge Plan - Plan Referrals: Charity Pike, RECREATIONAL THERAPIST [Primary Care Provider] - 1 week
[2018-07-13] MEDS: Fluticasone Propionate Nasal 50 MCG/SPRAY BOTTLE NS SCH (12:38)
--- NOTE | 2018-07-13 15:56 | Electrocardiograph Report ---
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
[2018-07-13] MEDS: cefTRIAXone 1,000 MG in Water for inj. (sterile) 20 ML 10 ML IVPB SCH (21:01)
[2018-07-14 06:36] LABS: Basophils # 0.1 K/mcL (0.0-0.2); Basophils % 0.7 %; Eosinophils # 0.2 K/mcL (0.0-0.6); Hematocrit 36.1 % (35.3-44.9); Hemoglobin 11.6 g/dL (11.5-15.4); Immature Granulocytes % 0.4 % (0-4); Lymphocytes # 1.9 K/mcL (0.6-4.6); Lymphocytes % 27.8 %; Mean Corpuscular HGB Conc 32.1 g/dL (31.6-35.5); Mean Corpuscular Hemoglobin 25.8 pg (28.0-33.3); Mean Corpuscular Volume 80.2 fL (83.0-100.0); Mean Platelet Volume 8.8 fL (9.4-12.4); Monocytes # 0.7 K/mcL (0.0-1.3); Monocytes % 10.1 %; Neutrophils # 3.9 K/mcL (1.6-8.9); Platelet Count 429 K/mcL (140-400); Red Cell Distribution Width 14.6 % (11.5-14.5)
[2018-07-14] MEDS: Levothyroxine 25 MCG TABLET PO SCH (06:41)
[2018-07-14] MEDS: Ascorbic Acid 500 MG TABLET PO SCH ×2 (06:41→06:44)
[2018-07-14 06:56] LABS: BUN/Creatinine Ratio 20 (6-26); Blood Urea Nitrogen 11 mg/dL (8-23); Calcium 9.9 mg/dL (8.6-10.3); Carbon Dioxide 24 mEq/L (23-29); Chloride 100 mEq/L (98-107); Glucose 115 mg/dL (70-105); Osmolality,Calculated 278 (280-300); Phosphorous 3.2 mg/dL (2.7-4.5); Potassium 3.8 mEq/L (3.5-5.1); Sodium 134 mEq/L (136-145); eGFR For Non-African Americans > 60 (> 60)
[2018-07-14] MEDS: *HR* Metformin 500 MG TABLET PO SCH (08:40)
[2018-07-14] MEDS: Lactobacillus 1 EACH CAP.SPRINK PO SCH (08:40)
[2018-07-14] MEDS: Sennosides 8.6 MG TABLET PO SCH (08:40)
[2018-07-14] MEDS: Fluticasone Propionate Nasal 50 MCG/SPRAY BOTTLE NS SCH (08:41)
[2018-07-14] MEDS: Fenofibrate 54 MG TABLET PO SCH (08:41)
[2018-07-14 11:30] VITALS: BP 130/66
[2018-07-14] MEDS: Ondansetron ODT 4 MG TAB.RAPDIS SL PRN (12:41)
--- NOTE | 2018-07-14 14:24 | Discharge Summary ---
Date of Encounter: 07/14/18 Time of Encounter: 14:15 - Discharge Diagnosis (1) Hyponatremia Priority: Primary Status: Acute (2) UTI (urinary tract infection) Priority: Secondary Status: Acute Qualifiers: Urinary tract infection type: site unspecified Hematuria presence: with hematuria Qualified Code(s): N39.0 - Urinary tract infection, site not specified; R31.9 - Hematuria, unspecified (3) Microcytosis Priority: Secondary Status: Acute (4) Weight loss Priority: Secondary Status: Acute (5) DM type 2 (diabetes mellitus, type 2) Priority: Secondary Status: Chronic Qualifiers: Diabetes mellitus clerk travel reservations insulin use: without clerk travel reservations use Diabetes mellitus complication status: with unspecified complications Qualified Code(s) : E11.8 - Type 2 diabetes mellitus with unspecified complications (6) Weakness Priority: Secondary Status: Acute Hospital course: Ms. Baker is a 83 year old female who came to emergency room stating she had progressive weakness with poor intake of food and fluids over the past few days. She reports she had been diagnosed with a UTI a few days ago and started on Levaquin yesterday before coming to emergency room. She was evaluated in emergency room and felt to have UTI and failure to thrive. She was admitted to [facility] floor for ongoing care needs. Initial orders were written by the emergency room physician. I saw her on July 11 and performed the history and physical. She was started on Rocephin empirically. Urine culture was ordered but was not obtained. WBC decreased further to 6.7 by day of discharge with no left shift seen. She will continue with antibiotic and probiotic for 2 additional days at discharge. I told her she should have discussion with her PCP and/or urologist about prophylactic/ suppressive antibiotic regimen since she has frequent UTIs. She was restarted on ferrous sulfate with vitamin C and these were tolerated well. She will continue these at home. Sodium level ash to 134 by day of discharge. 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 Her PCP can monitor labs. CA 19-9 returned normal at 31. Supplemental potassium was given and potassium level had improved to 3.8 by day of discharge. She will continue with supplemental potassium for 7 days at discharge. Her PCP can monitor labs and determine if additional therapy is needed. Hypophosphatemia was treated with Neutra-Phos and had resolved by day of discharge. Her PCP can monitor this. She had physical therapy and occupational therapy evaluations with ongoing intervention done. She had satisfactory ambulation and her inquiry about transitioning to swing bed was denied by insurance. She will be discharged home and follow with her PCP within 1 week. She declined home health services. - Time Spent with Patient Total time spent providing and/or coordinating discharge services: - Discharge Medications Prescriptions: Cefuroxime PO [Ceftin] 500 mg PO Q12HR #4 tablet Lactobacillus [Culturelle] 1 each PO BID #4 cap.sprink metFORMIN [Glucophage] 500 mg PO BIDWM #60 tablet Potassium Chloride 10 meq PO DAILY #7 tab.er.prt Home Medications: Allopurinol [Zyloprim 300 MG] 300 mg PO DAILY 02/19/16 [History] Fenofibrate [Tricor] 54 mg PO DAILY 02/19/16 [History] Fluticasone Furoate [Arnuity Ellipta] 100 mcg NS DAILY 02/19/16 [History] Levothyroxine [Synthroid] 50 mcg PO DAILY 02/19/16 [History] [place]-3/Dha/Epa/Fish Oil [Fish Oil 1,000 mg Softgel] 1 each PO BID 02/19/16 [ History] Propranolol [Inderal] 10 mg PO BID 02/19/16 [History] Omeprazole [PriLOSEC] 20 mg PO DAILY 06/29/18 [History] Ascorbic Acid [Vitamin C] 500 mg PO DAILY #30 tablet 06/30/18 [Rx] Ferrous Sulfate 325 mg PO DAILY #30 tablet 06/30/18 [Rx] Cefuroxime PO [Ceftin] 500 mg PO Q12HR #4 tablet 07/14/18 [Rx] Lactobacillus [Culturelle] 1 each PO BID #4 cap.sprink 07/14/18 [Rx] Potassium Chloride 10 meq PO DAILY #7 tab.er.prt 07/14/18 [Rx] metFORMIN [Glucophage] 500 mg PO BIDWM #60 tablet 07/14/18 [Rx] Allergies/Adverse Reactions: 3 Allergy/AdvReac Type Severity Reaction Status Date / Time azithromycin Allergy Hives Verified 07/10/18 19:23 [From Zithromax Z-Silviano] ciprofloxacin [From Cipro] Allergy Hives Verified 07/10/18 19:23 gabapentin AdvReac Gastrointestinal Verified 07/11/18 12:36 Upset oxybutynin AdvReac Gastrointestinal Verified 07/11/18 12:36 Upset Date of admission: 07/10/18 21:58 Primary care physician: Charity Pike CNP Consults: 07/10/18 23:29 Consult to Nutrition [CONS] Routine Comment: Consulting Provider: NUTRITION Reason for Dietary Consult: MST Score Consult to Barrel Assembler Helper [CONS] Routine Reason for SW Consult: Patient receives home health and home PT through [facility]. 07/12/18 09:58 Consult to Occupational Therapy [CONS] Routine Comment: Evaluate, develop and implement POC Reason for Consult: Weakness Does patient have active BEDREST order?: No Is patient medically & hemodynamically stable?: Yes Patient assessed for mobility or mobilized this visit?: Yes Consult to Physical Therapy [CONS] Routine Comment: Evaluate, develop and implement POC Reason for Consult: Weakness Does patient have active BEDREST order?: No Is patient medically & hemodynamically stable?: Yes Patient assessed for mobility or mobilized this visit?: Yes - Constitutional Vitals: Temp Pulse Resp BP Pulse Ox 98.1 F 68 16 130/66 95 07/14/18 11:00 07/14/18 11:00 07/14/18 11:00 07/14/18 11:00 07/14/18 11:00 - Patient Status Disposition: Home, Self-Care Condition: Fair - Discharge Instructions Follow Up With: Charity Pike CNP [Primary Care Provider] - 1 week - Diet and Activity Activity: resume usual activities as tolerated Diet: advance to your usual diet
== END 2018-07-14 16:26 | disposition home or self-care (01) ==
LOC: EMEROOPIK 19:00 → INPPIK 19:00
PROVIDERS: ADMIT Internal Medicine; ATTEND Internal Medicine

== ENCOUNTER 2018-08-05 20:45 | Observation (INO) ==
[2018-08-05] MEDS ORDERED: 0.9 % Sodium Chloride 1,000 ML IVC ONE (21:00)
[2018-08-05] MEDS ORDERED: Acetaminophen 325 MG TABLET PO ONE (21:00)
--- NOTE | 2018-08-05 21:05 | Emergency Department Note ---
Disposition Clinical Impression: Hyponatremia, Weakness UTI (urinary tract infection) Qualifiers: Urinary tract infection type: acute cystitis Hematuria presence: without hematuria Qualified Code(s): N30.00 - Acute cystitis without hematuria Disposition: Admitted As Inpatient Condition: Fair Weakness HPI - General Chief complaint: ED Fever Stated complaint: flu like symptoms/fever Time Seen by Provider: 08/05/18 21:00 Source: patient, EMS Mode of arrival: EMS Limitations: no limitations Nursing Notes Reviewed: Yes Vital Signs Reviewed: Yes - History of Present Illness HPI Narrative: Patient relates that she has generalized weakness but no other real complaints. She states "I am just weak". She states due to this she has had a difficult time getting up and walking and that she "almost fell down". She has a feeling fevers and chills but did not check her temperature. Temperature is 100.5 on arrival here. She does report some nausea but no vomiting. She denies diarrhea or abdominal pain. She does report a slight cough but states that is because of "sinus drainage". She denies production of phlegm nor any shortness of breath or chest pain. She denies headache, visual changes nor any muscle aches or joint aches. She denies any urinary frequency or dysuria. She denies any ill exposures. She relates she has had similar trouble in the past and that she has had a urinary tract infection. Pt Subjective Complaint: generalized weakness/fatigue Onset (ago): day(s) Duration: gradually worsening Location: generalized Migration: none Pain Severity: none Pain Scale: 0 Improves with: none Worsens with: movement, exertion Associated symptoms: Reports: fever/chills, loss of appetite, nausea/vomiting ( No vomiting). Denies: chest pain, confusion, dark stools, diaphoresis, dysuria , easy bruising, headaches, myalgias, rash, shortness of breath, syncope (Weak and "almost fell down") - Related Data Home Medications Medication Instructions Recorded Confirmed Allopurinol [Zyloprim 300 MG] 300 mg PO DAILY 02/19/16 08/05/18 Fenofibrate [Tricor] 54 mg PO DAILY 02/19/16 08/05/18 Fluticasone Furoate [Arnuity 100 mcg NS DAILY 02/19/16 08/05/18 Ellipta] Levothyroxine [Synthroid] 50 mcg PO DAILY 02/19/16 08/05/18 [place]-3/Dha/Epa/Fish Oil [Fish Oil 1 each PO BID 02/19/16 08/05/18 1,000 mg Softgel] Propranolol [Inderal] 10 mg PO BID 02/19/16 08/05/18 Omeprazole [PriLOSEC] 20 mg PO DAILY 06/29/18 08/05/18 Previous Rx's Medication Instructions Recorded Ascorbic Acid [Vitamin C] 500 mg PO DAILY #30 tablet 06/30/18 Ferrous Sulfate 325 mg PO DAILY #30 tablet 06/30/18 Cefuroxime PO [Ceftin] 500 mg PO Q12HR #4 tablet 07/14/18 Lactobacillus [Culturelle] 1 each PO BID #4 cap.sprink 07/14/18 Potassium Chloride 10 meq PO DAILY #7 tab.er.prt 07/14/18 metFORMIN [Glucophage] 500 mg PO BIDWM #60 tablet 07/14/18 Allergies Allergy/AdvReac Type Severity Reaction Status Date / Time azithromycin Allergy Hives Verified 07/10/18 19:23 [From Zithromax Z-Silviano] ciprofloxacin [From Cipro] Allergy Hives Verified 07/10/18 19:23 gabapentin AdvReac Gastrointestinal Verified 07/11/18 12:36 Upset oxybutynin AdvReac Gastrointestinal Verified 07/11/18 12:36 Upset All systems ED: reviewed and negative except as stated. Past Medical History - Past Medical History Attestation: Yes The following information was validated with the patient. Source: patient, nursing notes reviewed Medical history: Reports: arthritis, diabetes, hyperlipidemia, kidney stones, renal disease, thyroid disease, other Surgical history: Reports: appendectomy, cataract, cholecystectomy, herniorrhaphy, hip replacement, hysterectomy, orthopedic, other, ureteral stent , other Psychiatric history: Reports: no psych history NURSING UNIT COORDINATOR history: Reports: bilateral tubal ligation - Social History Smoking Status: Never smoker Smokeless Tobacco Status: No Alcohol use: Reports: none Drug use: Reports: none Physical Exam - General Limitations: no limitations General appearance: alert, in no apparent distress - Head Head exam: atraumatic, normocephalic, normal inspection - Eye Eye exam: Present: normal appearance, PERRL, EOMI. Absent: scleral icterus, conjunctival injection - ENT ENT exam: normal exam, normal oropharynx, mucous membranes moist - Neck Neck exam: Present: normal inspection, full ROM, trachea midline. Absent: tenderness, meningismus, lymphadenopathy - Chest Chest inspection: Present: normal inspection, symmetric chest wall rise - Respiratory Respiratory exam: Present: normal lung sounds bilaterally. Absent: respiratory distress, wheezes, prolonged expiratory phase - Cardiovascular Cardiovascular exam: Present: regular rate, normal rhythm, normal heart sounds. Absent: tachycardia - Abdominal Exam Abdominal exam: Present: soft, Non-Tender, normal bowel sounds. Absent: tenderness, distention, guarding, rebound, rigidity - Extremities Exam Extremities exam: Present: normal inspection, full ROM, normal capillary refill. Absent: tenderness, pedal edema, calf tenderness - Expanded Lower Extremity Exam Neurovascular/Tendon exam: Present: normal capillary refill. Absent: motor deficit, sensory deficit, tendon deficit Gait: observed and normal - Back Exam Back exam: Present: normal inspection, full ROM. Absent: tenderness, CVA tenderness (R), CVA tenderness (L) - Neurological Exam Neurological exam: Present: alert, oriented X3 - Psychiatric Psychiatric exam: Present: normal affect, normal mood. Absent: agitated, anxious - Skin Skin exam: Present: warm, dry, intact, normal color. Absent: diaphoresis, pallor Course Course Narrative: Patient does have a UTI to explain her fever and fatigue. She has been started on Rocephin. Dr. Hernandez is being contacted for her inpatient observation. Vital Signs Temperature 100.5 F H 08/05/18 20:49 Pulse Rate 89 08/05/18 20:49 Respiratory Rate 18 08/05/18 20:49 Blood Pressure 136/55 08/05/18 20:49 O2 Sat by Pulse Oximetry 93 08/05/18 20:49 Temperature 100.5 F H 08/06/18 04:50 Pulse Rate 104 08/06/18 04:50 Respiratory Rate 18 08/06/18 04:50 Blood Pressure 148/70 08/06/18 04:50 O2 Sat by Pulse Oximetry 91 08/06/18 04:50 Oxygen Delivery Oxygen Delivery Room Air Weakness - Differential Diagnosis Differential Diagnosis: Likely: sepsis/infection, dehydration, medication effect , metabolic - Medical Records Medical records reviewed: Yes I reviewed the patient's medical records. - Lab Data Lab results reviewed: Yes I reviewed the patient's lab results. Result diagrams: 08/05/18 21:29 08/05/18 21:29 Lab Results 08/05/18 08/05/18 08/05/18 Range/Units 21:29 21:29 21:29 WBC 10.2 (4.3-11.1) K/mcL RBC 4.20 (3.82-4.97) M/mcL Hgb 10.8 L (11.5-15.4) g/dL Hct 32.8 L (35.3-44.9) % MCV 78.1 L (83.0-100.0) fL MCH 25.7 L (28.0-33.3) pg MCHC 32.9 (31.6-35.5) g/dL RDW 15.3 H (11.5-14.5) % Plt Count 301 (140-400) K/mcL MPV 8.4 L (9.4-12.4) fL Immature Gran % 0.6 (0-4) % Seg Neutrophils % 73.2 % Lymphocytes % 12.7 % Monocytes % 13.1 % Eosinophils % 0.1 % Basophils % 0.3 % Neutrophils # 7.4 (1.6-8.9) K/mcL Lymphocytes # 1.3 (0.6-4.6) K/mcL Monocytes # 1.3 (0.0-1.3) K/mcL Eosinophils # 0.0 (0.0-0.6) K/mcL Basophils # 0.0 (0.0-0.2) K/mcL Sodium 128 L (136-145) mEq/L Potassium 3.3 L (3.5-5.1) mEq/L Chloride 97 L (98-107) mEq/L Carbon Dioxide 22 L (23-29) mEq/L BUN 15 (8-23) mg/dL Creatinine 0.60 (0.60-1.20) mg/dL Est GFR ( Amer) > 60 (> 60) Est GFR (Non-Af Amer) > 60 (> 60) BUN/Creatinine Ratio 25 (6-26) Glucose 152 H (70-105) mg/dL Calculated Osmolality 270 L (280-300) Lactic Acid 0.7 (0.5-2.2) mmol/L Calcium 8.9 (8.6-10.3) mg/dL Total Bilirubin 0.7 (0.3-1.0) mg/dL Direct Bilirubin 0.2 (0.0-0.2) mg/dL Indirect Bilirubin 0.5 (0.0-1.2) mg/dL AST 14 (13-39) Units/L ALT 10 (7-52) Units/L Alkaline Phosphatase 38 (34-104) Units/L Serum Total Protein 6.7 (6.4-8.9) g/dL Albumin 3.5 (3.5-5.7) g/dL Globulin 3.2 (2.4-3.5) g/dL Albumin/Globulin Ratio 1.1 (1.1-2.2) Urine Color (Yellow) Urine Clarity (Clear) Urine pH (5.0-8.0) pH Units Ur Specific [place] (1.010-1.025) Urine Protein (Neg-Trace) mg/dL Urine Glucose (UA) (Normal) mg/dL Urine Ketones (Negative) mg/dL Urine Blood (Negative) Urine Nitrite (Negative) Urine Bilirubin (Negative) Urine Urobilinogen (Normal) mg/dL Ur Leukocyte Esterase (Negative) Urine Microscopic WBC (0-3) per hpf Ur Culture Indicated? (NO) 08/05/18 Range/Units 21:39 WBC (4.3-11.1) K/mcL RBC (3.82-4.97) M/mcL Hgb (11.5-15.4) g/dL Hct (35.3-44.9) % MCV (83.0-100.0) fL MCH (28.0-33.3) pg MCHC (31.6-35.5) g/dL RDW (11.5-14.5) % Plt Count (140-400) K/mcL MPV (9.4-12.4) fL Immature Gran % (0-4) % Seg Neutrophils % % Lymphocytes % % Monocytes % % Eosinophils % % Basophils % % Neutrophils # (1.6-8.9) K/mcL Lymphocytes # (0.6-4.6) K/mcL Monocytes # (0.0-1.3) K/mcL Eosinophils # (0.0-0.6) K/mcL Basophils # (0.0-0.2) K/mcL Sodium (136-145) mEq/L Potassium (3.5-5.1) mEq/L Chloride (98-107) mEq/L Carbon Dioxide (23-29) mEq/L BUN (8-23) mg/dL Creatinine (0.60-1.20) mg/dL Est GFR ( Amer) (> 60) Est GFR (Non-Af Amer) (> 60) BUN/Creatinine Ratio (6-26) Glucose (70-105) mg/dL Calculated Osmolality (280-300) Lactic Acid (0.5-2.2) mmol/L Calcium (8.6-10.3) mg/dL Total Bilirubin (0.3-1.0) mg/dL Direct Bilirubin (0.0-0.2) mg/dL Indirect Bilirubin (0.0-1.2) mg/dL AST (13-39) Units/L ALT (7-52) Units/L Alkaline Phosphatase (34-104) Units/L Serum Total Protein (6.4-8.9) g/dL Albumin (3.5-5.7) g/dL Globulin (2.4-3.5) g/dL Albumin/Globulin Ratio (1.1-2.2) Urine Color Yellow (Yellow) Urine Clarity Turbid A (Clear) Urine pH 6.5 (5.0-8.0) pH Units Ur Specific [place] 1.020 (1.010-1.025) Urine Protein 100 H (Neg-Trace) mg/dL Urine Glucose (UA) Normal (Normal) mg/dL Urine Ketones Negative (Negative) mg/dL Urine Blood Moderate H (Negative) Urine Nitrite Positive A (Negative) Urine Bilirubin Negative (Negative) Urine Urobilinogen Normal (Normal) mg/dL Ur Leukocyte Esterase Large H (Negative) Urine Microscopic WBC See Below (0-3) per hpf Ur Culture Indicated? YES A (NO) - Radiology Data Radiology results reviewed: Yes I reviewed the patient's radiology results. Single view chest x-ray is performed. This does not demonstrate evidence for infiltrate, effusion, pneumothorax, foreign body or heart failure. The cardiac silhouette is normal. I do not see abnormality to the osseous structures of the chest. This is on my interpretation. Impressions Chest X-Ray 08/05/18 21:01 IMPRESSION: No acute process. D/ / Jaden Long MD / Jaden Long MD Interpreting Provider: Jaden Long MD
[2018-08-05 21:39] LABS: Basophils % 0.3 %; Eosinophils % 0.1 %; Hematocrit 32.8 % (35.3-44.9); Hemoglobin 10.8 g/dL (11.5-15.4); Immature Granulocytes % 0.6 % (0-4); Lymphocytes # 1.3 K/mcL (0.6-4.6); Lymphocytes % 12.7 %; Mean Corpuscular HGB Conc 32.9 g/dL (31.6-35.5); Mean Corpuscular Hemoglobin 25.7 pg (28.0-33.3); Mean Corpuscular Volume 78.1 fL (83.0-100.0); Mean Platelet Volume 8.4 fL (9.4-12.4); Monocytes # 1.3 K/mcL (0.0-1.3); Monocytes % 13.1 %; Neutrophils # 7.4 K/mcL (1.6-8.9); Platelet Count 301 K/mcL (140-400); Red Cell Distribution Width 15.3 % (11.5-14.5); Segmented Neutrophils % 73.2 %
[2018-08-05 21:42] LABS: Bilirubin,Urine Negative (Negative); Blood,Urine Moderate (Negative); Clarity,Urine Turbid (Clear); Color,Urine Yellow (Yellow); Glucose,Urine (UA) Normal (Normal); Ketones,Urine Negative (Negative); Leukocyte Esterase,Urine Large (Negative); Nitrite,Urine Positive (Negative); PH,Urine 6.5 pH Units (5.0-8.0); Protein,Urine 100 mg/dL (Neg-Trace); Urobilinogen,Urine Normal (Normal)
[2018-08-05 21:59] LABS: Alanine Aminotransferase 10 Units/L (7-52); Albumin 3.5 g/dL (3.5-5.7); Albumin/Globulin Ratio 1.1 (1.1-2.2); Alkaline Phosphatase 38 Units/L (34-104); Aspartate Amino Transferase 14 Units/L (13-39); BUN/Creatinine Ratio 25 (6-26); Bilirubin,Direct 0.2 mg/dL (0.0-0.2); Bilirubin,Indirect 0.5 mg/dL (0.0-1.2); Bilirubin,Total 0.7 mg/dL (0.3-1.0); Blood Urea Nitrogen 15 mg/dL (8-23); Calcium 8.9 mg/dL (8.6-10.3); Carbon Dioxide 22 mEq/L (23-29); Chloride 97 mEq/L (98-107); Globulin 3.2 g/dL (2.4-3.5); Glucose 152 mg/dL (70-105); Osmolality,Calculated 270 (280-300); Potassium 3.3 mEq/L (3.5-5.1); Sodium 128 mEq/L (136-145); Total Protein 6.7 g/dL (6.4-8.9); eGFR For Non-African Americans > 60 (> 60)
[2018-08-05] MEDS ORDERED: cefTRIAXone 2,000 MG in 0.9 % Sodium Chloride Mini Bag 100 ML IVPB ONE (22:21)
[2018-08-05] MEDS ORDERED: 0.9 % Sodium Chloride 1,000 ML ONE ×2 (22:26→23:21)
[2018-08-05] MEDS: 0.9 % Sodium Chloride 1,000 ML IVC SCH ×2 (22:32→22:33)
[2018-08-05] MEDS ORDERED: D5% in Water 1,000 ML IVC PRN (23:21)
[2018-08-05] MEDS ORDERED: *HR* Dextrose 50 % in Water (Syg) 50 ML SYRINGE IVP PRN (23:21)
[2018-08-05] MEDS ORDERED: Dextrose Gel 15 GM/37.5 ML TUBE PO PRN ×2 (23:21)
[2018-08-05] MEDS ORDERED: Naloxone 0.4 MG/ML INJ IVP PRN (23:21)
[2018-08-06] MEDS: 0.9 % Sodium Chloride 1,000 ML IVC SCH (05:16)
[2018-08-06] MEDS: Levothyroxine 25 MCG TABLET PO SCH (06:07)
[2018-08-06 06:27] LABS: BUN/Creatinine Ratio 21 (6-26); Blood Urea Nitrogen 11 mg/dL (8-23); Calcium 8.8 mg/dL (8.6-10.3); Carbon Dioxide 22 mEq/L (23-29); Chloride 103 mEq/L (98-107); Glucose 141 mg/dL (70-105); Osmolality,Calculated 284 (280-300); Potassium 3.2 mEq/L (3.5-5.1); Sodium 136 mEq/L (136-145); eGFR For Non-African Americans > 60 (> 60)
[2018-08-06] MEDS ORDERED: *HR* Metformin 500 MG TABLET PO SCH (08:00)
[2018-08-06] MEDS ORDERED: Ascorbic Acid 500 MG TABLET PO SCH (09:00)
[2018-08-06] MEDS: Fenofibrate 54 MG TABLET PO SCH (09:17)
[2018-08-06] MEDS: Lactobacillus 1 EACH CAP.SPRINK PO SCH ×2 (09:17→21:43)
[2018-08-06] MEDS: cefTRIAXone 2,000 MG in 0.9 % Sodium Chloride Mini Bag 100 ML IVPB SCH (09:17)
[2018-08-06] MEDS: Insulin LISPRO 300 UNITS/3 ML VIAL SQ SCH ×3 (09:21→17:42)
[2018-08-06] MEDS: Fluticasone Propionate Nasal 50 MCG/SPRAY BOTTLE NS SCH (09:30)
--- NOTE | 2018-08-06 11:00 | Internal Med History&Physical ---
Date of Encounter: 08/06/18 Time of Encounter: 10:20 Assessment and Plan (1) Microcytic anemia Current visit: Yes Status: Acute She reports not currently taking ferrous sulfate with vitamin C. Check iron profile and ferritin in a.m. and likely restart medications. (2) Gout Current visit: Yes Status: Acute Uric acid level was 2.2 on 06/30/2018. Hold allopurinol. Qualifiers: Gout site: unspecified site Gout etiology: unspecified cause Chronicity: chronic Presence of tophus: without tophus Qualified Code(s): M1A.9XX0 - Chronic gout, unspecified, without tophus (tophi) (3) Hypokalemia Current visit: Yes Status: Acute Supplemental potassium will be ordered and labs monitored. (4) UTI (urinary tract infection) Current visit: Yes Status: Acute Urine culture has been ordered. Rocephin started in emergency room. Continue this with lactobacillus. Qualifiers: Urinary tract infection type: acute cystitis Hematuria presence: without hematuria Qualified Code(s): N30.00 - Acute cystitis without hematuria (5) Hyponatremia Current visit: Yes Status: Acute Sodium normal today at 136. Continue to monitor. (6) Weight loss Current visit: No Status: Acute Etiology not obvious. TSH and CT scans a few weeks ago were unremarkable. Internal Medicine - H&P: HPI Chief complaint: Weakness Admitted From: Emergency Dept Plans for Post Hospital Care: Home History of present illness: Ms. Baker is a 83 year old female who came to emergency room complaining of progressive weakness and decreased appetite for several days. She reports nausea without significant vomiting. She was evaluated in emergency room and felt to have UTI. She had hyponatremia and hypokalemia. She was admitted to [facility] floor for ongoing care needs. She was hospitalized at [facility] approximately 4 weeks ago with hyponatremia. 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 She was treated for UTI. I told her at time of discharge she should discuss with her PCP and/or urologist about taking suppressive continual antibiotic regimen for frequent UTIs. She does not recall having that specific discussion with her PCP. Past Med Surg Social Fam HX - Past Medical History Medical history: arthritis, diabetes, hyperlipidemia, kidney stones, renal disease, thyroid disease, other Additional medical history: spinal stenosis. severe rectocele. essential tremors. kidney stones Psychiatric history: no psych history - Past Surgical History Surgical History: appendectomy, cataract, cholecystectomy, herniorrhaphy, hip replacement, hysterectomy, orthopedic, other, ureteral stent, other Additional surgical history: 4 cornea transplants. left hip replacement 1998. hernia surgery 2003 - Social History Smoking Status: Never smoker Smokeless Tobacco Status: No Alcohol use: none Drug use: none - Family History Mother Adopted: No Living Status: Age at : 74 Cause of : arteriosclerosis Hx Family Cardiac Disorders: Yes Hx Family Respiratory Disorders: No Hx Family Cancer: No Hx Family GI Disorders: No Hx Family Genitourinary Disorders: No Hx Family Endocrine Disorder: No Hx Family Musculoskeletal Disorders: No Hx Family Neuromuscular Disorders: No Hx Family Neurologic Disorders: No Hx Family HEENT Disorders: No Hx Family Autoimmune Disorders: No Hx Family Reproductive Disorders: No Hx Family Psychosocial Disorders: No Hx Family Medical Disorders: No Internal Medicine - H&P: Meds Allopurinol [Zyloprim 300 MG] 300 mg PO DAILY 02/19/16 [History] Fenofibrate [Tricor] 54 mg PO DAILY 02/19/16 [History] Fluticasone Furoate [Arnuity Ellipta] 100 mcg NS DAILY 02/19/16 [History] Levothyroxine [Synthroid] 50 mcg PO DAILY 02/19/16 [History] [place]-3/Dha/Epa/Fish Oil [Fish Oil 1,000 mg Softgel] 1 each PO BID 02/19/16 [ History] Propranolol [Inderal] 10 mg PO BID 02/19/16 [History] Omeprazole [PriLOSEC] 20 mg PO DAILY 06/29/18 [History] Ascorbic Acid [Vitamin C] 500 mg PO DAILY #30 tablet 06/30/18 [Rx] Ferrous Sulfate 325 mg PO DAILY #30 tablet 06/30/18 [Rx] Cefuroxime PO [Ceftin] 500 mg PO Q12HR #4 tablet 07/14/18 [Rx] Lactobacillus [Culturelle] 1 each PO BID #4 cap.sprink 07/14/18 [Rx] Potassium Chloride 10 meq PO DAILY #7 tab.er.prt 07/14/18 [Rx] metFORMIN [Glucophage] 500 mg PO BIDWM #60 tablet 07/14/18 [Rx] 3 Allergy/AdvReac Type Severity Reaction Status Date / Time azithromycin Allergy Hives Verified 07/10/18 19:23 [From Zithromax Z-Silviano] ciprofloxacin [From Cipro] Allergy Hives Verified 07/10/18 19:23 gabapentin AdvReac Gastrointestinal Verified 07/11/18 12:36 Upset oxybutynin AdvReac Gastrointestinal Verified 07/11/18 12:36 Upset All Systems PM: A 10-system review of systems was performed and is negative for pertinent findings except as documented above in the HPI. Review of systems: Review of systems from her July 2018 [facility] hospitalization were reviewed and revised as below. Gen.: Her weight has decreased from 68.492 kg on 04/12/2018 to 62.142 kg at present. She reported at the March 2018 hospitalization she had lost approximately 20-25 pounds in the past year, unintentionally. She attributes this to poor appetite. CT scans of chest abdomen and pelvis done May 2018 showed no worrisome pathology. Cardiovascular: She denies hypertension [place] heart failure angina DVT or pulmonary embolus Respiratory: She is a lifelong nonsmoker and denies chronic lung disease GI: She has had cholecystectomy. She has GERD. She denies disorders of her liver or exocrine pancreas : She reports frequent UTIs and follows with a urologist in [place]. She had prolapse repair with mesh placement 2002 at [facility] and umbilical hernia and colpopexy April 2018 at [facility]. She reports kidney stones and ovary cyst in the past but denies other kidney or bladder disorders. Neurologic: She has essential tremor. She denies large distribution strokes or seizures. Endocrine: She has DM 2, hypothyroidism and hypertriglyceridemia. Hematology/oncology: She denies blood disorders or cancers. She has had anemia in the past. Psychiatric: She denies anxiety depression or other mental health issues [place] skeletal: She had elective left total hip replacement in the past. She has history of gout. She denies significant arthritis or other bone joint or muscle disorders. - Constitutional Vitals: Temp Pulse Resp BP Pulse Ox 99.7 F H 93 18 126/63 94 08/06/18 07:02 08/06/18 07:02 08/06/18 07:02 08/06/18 07:02 08/06/18 07:02 Exam: Gen.: She is a well-developed well-nourished female resting comfortably in bed who appears in no acute distress at present time HEENT: Head is atraumatic and normocephalic. Eyes: EOMI. There is no scleral icterus. Mouth: Mucosa is moist. Neck: Supple and nontender. There is no thyromegaly or adenopathy noted. Heart: Regular without murmurs gallops or ectopics Lungs: No wheezes or crackles are heard. Abdomen: Soft and nontender. No masses or guarding are noted. Extremities: There is no cyanosis edema or clubbing noted. Dorsalis pedis and posterior tibial pulses are trace palpable bilaterally. Neurologic: Mental status: She is talkative and a good historian. Cranial nerves: Smile is symmetric. Forehead wrinkles bilaterally. Tongue protrudes midline. EOMI. Motor: There is no pronator drift. Cerebellar: Finger to nose is intact bilaterally. Skin: Warm and dry Internal Med - H&P Results - Labs CBC & Chem 7: 08/05/18 21:29 08/06/18 05:53 Labs: BMP 08/06/18 05:53 Sodium 136 Potassium 3.2 L Chloride 103 Carbon Dioxide 22 L BUN 11 Creatinine 0.52 L Glucose 141 H Calcium 8.8
[2018-08-07 05:19] LABS: Basophils % 0.2 %; Eosinophils # 0.1 K/mcL (0.0-0.6); Eosinophils % 0.5 %; Hematocrit 31.5 % (35.3-44.9); Hemoglobin 10.2 g/dL (11.5-15.4); Immature Granulocytes % 0.4 % (0-4); Lymphocytes # 1.5 K/mcL (0.6-4.6); Lymphocytes % 15.9 %; Mean Corpuscular HGB Conc 32.4 g/dL (31.6-35.5); Mean Corpuscular Hemoglobin 25.3 pg (28.0-33.3); Mean Corpuscular Volume 78.2 fL (83.0-100.0); Monocytes # 1.3 K/mcL (0.0-1.3); Monocytes % 14.3 %; Neutrophils # 6.3 K/mcL (1.6-8.9); Platelet Count 332 K/mcL (140-400); Red Blood Count 4.03 M/mcL (3.82-4.97); Red Cell Distribution Width 15.2 % (11.5-14.5); Segmented Neutrophils % 68.7 %
[2018-08-07 05:35] LABS: BUN/Creatinine Ratio 16 (6-26); Blood Urea Nitrogen 7 mg/dL (8-23); Calcium 8.6 mg/dL (8.6-10.3); Carbon Dioxide 22 mEq/L (23-29); Chloride 100 mEq/L (98-107); Chol/HDL Ratio 6.7 (0-4.9); Cholesterol 134 mg/dL (< 200); Glucose 110 mg/dL (70-105); HDL Cholesterol 20 mg/dL (40-59); LDL Cholesterol,Calculated 88 mg/dL (0-99); Magnesium 1.6 mg/dL (1.6-2.6); Osmolality,Calculated 271 (280-300); Potassium 3.2 mEq/L (3.5-5.1); Sodium 131 mEq/L (136-145); Triglycerides 132 mg/dL (< 150); eGFR For Non-African Americans > 60 (> 60)
[2018-08-07] MEDS: Levothyroxine 25 MCG TABLET PO SCH (06:29)
[2018-08-07] MEDS: Ascorbic Acid 500 MG TABLET PO SCH (06:29)
[2018-08-07] MEDS: 0.9 % Sodium Chloride 1,000 ML IVC SCH (07:49)
[2018-08-07] MEDS: Lactobacillus 1 EACH CAP.SPRINK PO SCH ×2 (08:42→21:30)
[2018-08-07] MEDS: Fenofibrate 54 MG TABLET PO SCH (08:42)
[2018-08-07] MEDS: cefTRIAXone 2,000 MG in 0.9 % Sodium Chloride Mini Bag 100 ML IVPB SCH (08:43)
[2018-08-07] MEDS: Fluticasone Propionate Nasal 50 MCG/SPRAY BOTTLE NS SCH (08:46)
[2018-08-07 09:25] LABS: Estimated Average Glucose 143 mg/dl; Hemoglobin A1C 6.6 %
[2018-08-07 10:04] LABS: Ferritin 311 ng/mL (10-120); Iron < 10 mcg/dL (50-170); Transferrin 177 mg/dL (203-362)
[2018-08-07] MEDS: Insulin LISPRO 300 UNITS/3 ML VIAL SQ SCH ×3 (10:26→16:47)
[2018-08-07] MEDS ORDERED: Iron Sucrose Complex 400 MG in 0.9 % Sodium Chloride 250 ML IVPB ONE (12:33)
--- NOTE | 2018-08-07 12:38 | Internal Med Progress Note ---
Date of Encounter: 08/07/18 Time of Encounter: 12:25 - Assessment and plan (1) Microcytic anemia Current Visit: Yes Status: Acute Assessment and plan: August 07. Anemia testing showed iron < 10, transferrin 177, ferritin 311, B12 842, and folate 15.5. Hemoglobin decreased slightly to 10.2. Continue oral ferrous sulfate with ascorbic acid and order IV iron dextran. (2) Gout Current Visit: Yes Status: Acute Assessment and plan: August 07. Allopurinol held to see if nausea/poor appetite improves. Qualifiers: Gout site: unspecified site Gout etiology: unspecified cause Chronicity: chronic Presence of tophus: without tophus Qualified Code(s): M1A.9XX0 - Chronic gout, unspecified, without tophus (tophi) (3) Hypokalemia Current Visit: Yes Status: Acute Assessment and plan: August 07. Potassium 3.2. Increase supplementation and monitor labs. (4) UTI (urinary tract infection) Current Visit: Yes Status: Acute Assessment and plan: August 07. Preliminary report shows gram-negative rods. Continue empiric Rocephin with lactobacillus. Qualifiers: Urinary tract infection type: acute cystitis Hematuria presence: without hematuria Qualified Code(s): N30.00 - Acute cystitis without hematuria (5) Hyponatremia Current Visit: Yes Status: Acute Assessment and plan: August 07. 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 Continue to monitor sodium. (6) Weight loss Current Visit: No Status: Acute Assessment and plan: August 07. Order CEA and continue to monitor weight and appetite. - Subjective Interval history: August 07. She has no new complaints. She feels weak and wishes to ambulate. - Constitutional Vitals: Temp Pulse Resp BP Pulse Ox 98.5 F 77 16 126/62 96 08/07/18 06:00 08/07/18 06:00 08/07/18 06:00 08/07/18 06:00 08/07/18 06:00 Exam: She is resting comfortably in bed and appears in no acute distress. Her affect is bright and cheerful. I reviewed her medications and lab results. Internal Medicine: Result - Labs CBC & Chem 7: 08/07/18 05:03 08/07/18 05:03 Labs: Short CBC 08/07/18 Range/Units 05:03 WBC 9.1 (4.3-11.1) K/mcL Hgb 10.2 L (11.5-15.4) g/dL Hct 31.5 L (35.3-44.9) % Plt Count 332 (140-400) K/mcL Neutrophils # 6.3 (1.6-8.9) K/mcL BMP 08/07/18 05:03 Sodium 131 L Potassium 3.2 L Chloride 100 Carbon Dioxide 22 L BUN 7 L Creatinine 0.45 L Glucose 110 H Calcium 8.6 Consult Discharge Plan - Plan Referrals: Charity Pike, VIBRATION ENGINEER [Primary Care Provider] - 1 week
[2018-08-08] MEDS: Levothyroxine 25 MCG TABLET PO SCH (05:51)
[2018-08-08] MEDS: Ascorbic Acid 500 MG TABLET PO SCH (05:51)
[2018-08-08 06:30] VITALS: BP 142/72
[2018-08-08 06:52] LABS: Basophils % 0.6 %; Eosinophils # 0.2 K/mcL (0.0-0.6); Eosinophils % 3.2 %; Hematocrit 31.9 % (35.3-44.9); Hemoglobin 10.6 g/dL (11.5-15.4); Immature Granulocytes % 0.9 % (0-4); Lymphocytes # 1.2 K/mcL (0.6-4.6); Lymphocytes % 17.7 %; Mean Corpuscular HGB Conc 33.2 g/dL (31.6-35.5); Mean Corpuscular Hemoglobin 25.6 pg (28.0-33.3); Mean Corpuscular Volume 77.1 fL (83.0-100.0); Mean Platelet Volume 8.7 fL (9.4-12.4); Monocytes # 0.8 K/mcL (0.0-1.3); Monocytes % 11.2 %; Neutrophils # 4.6 K/mcL (1.6-8.9); Platelet Count 321 K/mcL (140-400); Red Blood Count 4.14 M/mcL (3.82-4.97); Red Cell Distribution Width 15.2 % (11.5-14.5); Segmented Neutrophils % 66.4 %
[2018-08-08 07:13] LABS: BUN/Creatinine Ratio 20 (6-26); Blood Urea Nitrogen 8 mg/dL (8-23); Calcium 8.7 mg/dL (8.6-10.3); Carbon Dioxide 23 mEq/L (23-29); Chloride 105 mEq/L (98-107); Glucose 112 mg/dL (70-105); Osmolality,Calculated 279 (280-300); Potassium 3.3 mEq/L (3.5-5.1); Sodium 135 mEq/L (136-145); eGFR For Non-African Americans > 60 (> 60)
[2018-08-08] MEDS: Insulin LISPRO 300 UNITS/3 ML VIAL SQ SCH ×2 (08:29→12:06)
[2018-08-08] MEDS: Fluticasone Propionate Nasal 50 MCG/SPRAY BOTTLE NS SCH (08:30)
[2018-08-08] MEDS: cefTRIAXone 2,000 MG in 0.9 % Sodium Chloride Mini Bag 100 ML IVPB SCH (08:31)
[2018-08-08] MEDS: Lactobacillus 1 EACH CAP.SPRINK PO SCH (08:31)
--- NOTE | 2018-08-08 11:16 | Discharge Summary ---
Date of Encounter: 08/08/18 Time of Encounter: 11:00 - Discharge Diagnosis (1) UTI (urinary tract infection) Priority: Primary Status: Acute Qualifiers: Urinary tract infection type: acute cystitis Hematuria presence: without hematuria Qualified Code(s): N30.00 - Acute cystitis without hematuria (2) Microcytic anemia Priority: Secondary Status: Acute (3) Gout Priority: Secondary Status: Chronic Qualifiers: Gout site: unspecified site Gout etiology: unspecified cause Chronicity: chronic Presence of tophus: without tophus Qualified Code(s): M1A.9XX0 - Chronic gout, unspecified, without tophus (tophi) (4) Hypokalemia Priority: Secondary Status: Chronic (5) Hyponatremia Priority: Secondary Status: Acute (6) Weight loss Priority: Secondary Status: Chronic Hospital course: Ms. Baker is a 83 year old female who came to emergency room complaining of progressive weakness and decreased appetite for several days. She reports nausea without significant vomiting. She was evaluated in emergency room and felt to have UTI. She had hyponatremia and hypokalemia. She was admitted to [facility] floor for ongoing care needs. Initial orders were written by the emergency room physician. I saw her on August 06 and performed the history and physical. She was started empirically on Rocephin. Urine culture returned showing Pseudomonas. She remained afebrile during her hospital stay. WBC remained normal and without left shift. She will continue with Suprax and probiotic for 5 additional days at discharge. She will be placed on Septra DS every Tuesday for UTI prophylaxis. Hemoglobin A1c returned satisfactory at 6.6%. Metformin was held because of patient's ongoing nausea and poor appetite. Lipid profile showed total cholesterol 134, triglycerides 132, LDL 88, HDL 20, and total/HDL ratio of 6.7. Fenofibrate was held. Her PCP can monitor lipid profile. Anemia testing showed iron < 10, transferrin 177, and ferritin 311. She was given IV iron sucrose. Hemoglobin was stable at 10.6 on day of discharge. Her PCP can monitor labs and prescribed iron as needed. CEA was checked to further evaluate her weight loss. It returned minimally elevated at 5.7. Her PCP can monitor as needed. She was given supplemental potassium and this will be continued at discharge. Her PCP can monitor labs. Allopurinol was discontinued since uric acid level was 2.2 on 06/30/2018. Her PCP can monitor. Her appetite had improved by day of discharge and she felt stronger when I saw her August 08. She will be discharged and follow with her PCP Charity Pike CNP within 1 week. She was see the urologist later this month. - Time Spent with Patient Total time spent providing and/or coordinating discharge services: - Discharge Medications Prescriptions: Cefixime [Suprax] 400 mg PO DAILY #5 capsule Lactobacillus [Culturelle] 1 each PO BID #10 cap.sprink Potassium Chloride 10 meq PO BID #60 tab.er.prt Sulfamethoxazole/Trimeth DS [Bactrim DS] 1 each PO QMWF #12 tablet Home Medications: Fluticasone Furoate [Arnuity Ellipta] 100 mcg NS DAILY 02/19/16 [History] Levothyroxine [Synthroid] 50 mcg PO DAILY 02/19/16 [History] Propranolol [Inderal] 10 mg PO BID 02/19/16 [History] Ascorbic Acid [Vitamin C] 500 mg PO DAILY #30 tablet 06/30/18 [Rx] Ferrous Sulfate 325 mg PO DAILY #30 tablet 06/30/18 [Rx] Cefixime [Suprax] 400 mg PO DAILY #5 capsule 08/08/18 [Rx] Lactobacillus [Culturelle] 1 each PO BID #10 cap.sprink 08/08/18 [Rx] Omeprazole [PriLOSEC] 20 mg PO DAILY PRN #0 08/08/18 [Rx] Potassium Chloride 10 meq PO BID #60 tab.er.prt 08/08/18 [Rx] Sulfamethoxazole/Trimeth DS [Bactrim DS] 1 each PO QMWF #12 tablet 08/08/18 [Rx] Allergies/Adverse Reactions: 3 Allergy/AdvReac Type Severity Reaction Status Date / Time azithromycin Allergy Hives Verified 07/10/18 19:23 [From Zithromax Z-Silviano] ciprofloxacin [From Cipro] Allergy Hives Verified 07/10/18 19:23 gabapentin AdvReac Gastrointestinal Verified 07/11/18 12:36 Upset oxybutynin AdvReac Gastrointestinal Verified 07/11/18 12:36 Upset Date of admission: 08/05/18 23:00 Primary care physician: Charity Pike CNP - Constitutional Vitals: Temp Pulse Resp BP Pulse Ox 97.7 F 74 15 142/72 97 08/08/18 06:24 08/08/18 06:24 08/08/18 06:24 08/08/18 06:24 08/08/18 06:24 - Patient Status Disposition: Home, Self-Care Condition: Fair - Discharge Instructions Follow Up With: Charity Pike, CALL WORKER [Primary Care Provider] - 1 week - Diet and Activity Activity: resume usual activities as tolerated Diet: advance to your usual diet - VTE Documentation of Mechanical Device: Graduated compression elastic hosiery
== END 2018-08-08 12:45 | disposition home or self-care (01) ==
LOC: INPPIK 20:45 → EMEROOPIK 20:45 → INPPIK 23:06
PROVIDERS: ADMIT Internal Medicine; ATTEND Internal Medicine

== ENCOUNTER 2018-08-28 15:48 | Inpatient (IN) ==
--- NOTE | 2018-08-28 15:57 | Emergency Department Note ---
Disposition Clinical Impression: Weakness Fever Qualifiers: Fever type: unspecified Qualified Code(s): R50.9 - Fever, unspecified UTI (urinary tract infection) Qualifiers: Urinary tract infection type: acute cystitis Hematuria presence: without hematuria Qualified Code(s): N30.00 - Acute cystitis without hematuria Disposition: Admitted As Inpatient Condition: Fair Referrals: Mitch Iglesias MD [Partnered Physician] - Forms: ED Satisfaction Letter Weakness HPI - General Chief complaint: ED Weakness Stated complaint: weakness/dehydrated Time Seen by Provider: 08/28/18 15:54 Source: patient, EMS Mode of arrival: EMS Limitations: no limitations Nursing Notes Reviewed: Yes Vital Signs Reviewed: Yes - History of Present Illness HPI Narrative: Patient reports she has had about 4-5 episodes of weakness with UTI since a bladder repair performed at [facility] about 2-[address] Sandoval. She states that she has been feeling pale, weak and shaky. She has had chills and is reportedly a slight fever. She has had decreased solid and liquid intake for 3 days due to being bedridden and she states she feels hungry and thirsty. She states she feels "just miserable" and states that it has been "going on for a while". Although she is at their current UTI she denies urinary frequency, dysuria, urgency or malodorous urine. She denies abdominal pain, nausea, vomiting or diarrhea. She denies back or flank pain. She denies chest pain, cough or shortness of breath. On arrival here her temperature is 101.4 and she looks somewhat pale. Pt Subjective Complaint: generalized weakness/fatigue, other (Fever) Onset (ago): day(s) Duration: gradually worsening Pain Severity: none Improves with: none Worsens with: exertion Context: recent surgery (Bladder repair a couple months ago with recurrent UTIs), history of similar Associated symptoms: Denies: chest pain, confusion, dark stools, diaphoresis, dysuria, easy bruising, fever/chills, headaches, loss of appetite, nausea/vomiting, myalgias, rash, shortness of breath, syncope - Related Data Home Medications Medication Instructions Recorded Confirmed Fluticasone Furoate [Arnuity 100 mcg NS DAILY 02/19/16 08/28/18 Ellipta] Levothyroxine [Synthroid] 50 mcg PO DAILY 02/19/16 08/28/18 Propranolol [Inderal] 10 mg PO BID 02/19/16 08/28/18 Previous Rx's Medication Instructions Recorded Ascorbic Acid [Vitamin C] 500 mg PO DAILY #30 tablet 06/30/18 Ferrous Sulfate 325 mg PO DAILY #30 tablet 06/30/18 Cefixime [Suprax] 400 mg PO DAILY #5 capsule 08/08/18 Lactobacillus [Culturelle] 1 each PO BID #10 cap.sprink 08/08/18 Omeprazole [PriLOSEC] 20 mg PO DAILY PRN #0 08/08/18 Potassium Chloride 10 meq PO BID #60 tab.er.prt 08/08/18 Sulfamethoxazole/Trimeth DS 1 each PO QMWF #12 tablet 08/08/18 [Bactrim DS] Allergies Allergy/AdvReac Type Severity Reaction Status Date / Time azithromycin Allergy Hives Verified 07/10/18 19:23 [From Zithromax Z-Silviano] ciprofloxacin [From Cipro] Allergy Hives Verified 07/10/18 19:23 gabapentin AdvReac Gastrointestinal Verified 07/11/18 12:36 Upset oxybutynin AdvReac Gastrointestinal Verified 07/11/18 12:36 Upset All systems ED: reviewed and negative except as stated. Past Medical History - Past Medical History Attestation: Yes The following information was validated with the patient. 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 Absent: tenderness, lymphadenopathy - Chest Chest inspection: Present: normal inspection, symmetric chest wall rise - Respiratory Respiratory exam: Present: normal lung sounds bilaterally. Absent: respiratory distress, wheezes, prolonged expiratory phase - Cardiovascular Cardiovascular exam: Present: regular rate, normal rhythm, normal heart sounds - Abdominal Exam Abdominal exam: Present: soft, Non-Tender, normal bowel sounds. Absent: tenderness, distention, guarding, rebound, rigidity - Extremities Exam Extremities exam: Present: normal inspection, full ROM, normal capillary refill. Absent: tenderness, pedal edema - Expanded Lower Extremity Exam Neurovascular/Tendon exam: Present: normal capillary refill. Absent: motor deficit, sensory deficit, tendon deficit Gait: not tested/not observed - Back Exam Back exam: Present: normal inspection, full ROM. Absent: tenderness, CVA tenderness (R), CVA tenderness (L), vertebral tenderness - Neurological Exam Neurological exam: Present: alert, oriented X3 - Psychiatric Psychiatric exam: Present: normal affect, normal mood. Absent: agitated, anxious - Skin Skin exam: Present: warm, dry, intact, pallor. Absent: diaphoresis Course Course Narrative: Patient's old record is reviewed and she is been written to receive 2 g of Rocephin. Her last 4 urine cultures with have been sensitive to this antibiotic. With return of testing, care is been discussed with Dr. Hernandez for continuation of IV fluids and IV antibiotics. She will need evaluation for social worker delinquency prevention. She currently has been too weak to get up at home and take care of her activities of daily living or eating. Verbal orders have been obtained for her observation period Vital Signs Temperature 101.4 F H 08/28/18 15:56 Pulse Rate 97 08/28/18 15:56 Respiratory Rate 18 08/28/18 15:56 Blood Pressure 139/71 08/28/18 15:56 O2 Sat by Pulse Oximetry 97 08/28/18 15:56 Temperature 99.5 F 08/28/18 16:52 Pulse Rate 93 08/28/18 16:52 Respiratory Rate 16 08/28/18 16:52 Blood Pressure 122/67 08/28/18 16:52 O2 Sat by Pulse Oximetry 96 08/28/18 16:52 Oxygen Delivery Oxygen Delivery Room Air Weakness - Differential Diagnosis Differential Diagnosis: Likely: anemia, sepsis/infection, dehydration, metabolic - Medical Records Medical records reviewed: Yes I reviewed the patient's medical records. Patient's last 4 urine cultures have been Pseudomonas, Pseudomonas, Citrobacter and Escherichia coli. I will have been pansensitive other than the Citrobacter which was resistant to Augmentin and Cefazolin. - Lab Data Lab results reviewed: Yes I reviewed the patient's lab results. Result diagrams: 08/28/18 16:26 08/28/18 16:26 Lab Results 08/28/18 08/28/18 08/28/18 Range/Units 16:26 16:26 16:26 WBC 13.6 H (4.3-11.1) K/mcL RBC 4.40 (3.82-4.97) M/mcL Hgb 11.0 L (11.5-15.4) g/dL Hct 33.7 L (35.3-44.9) % MCV 76.6 L (83.0-100.0) fL MCH 25.0 L (28.0-33.3) pg MCHC 32.6 (31.6-35.5) g/dL RDW 15.6 H (11.5-14.5) % Plt Count 421 H (140-400) K/mcL MPV 9.0 L (9.4-12.4) fL Immature Gran % 1.0 (0-4) % Seg Neutrophils % 82.4 % Lymphocytes % 6.7 % Monocytes % 9.5 % Eosinophils % 0.1 % Basophils % 0.3 % Neutrophils # 11.2 H (1.6-8.9) K/mcL Lymphocytes # 0.9 (0.6-4.6) K/mcL Monocytes # 1.3 (0.0-1.3) K/mcL Eosinophils # 0.0 (0.0-0.6) K/mcL Basophils # 0.0 (0.0-0.2) K/mcL Sodium 128 L (136-145) mEq/L Potassium 4.3 (3.5-5.1) mEq/L Chloride 98 (98-107) mEq/L Carbon Dioxide 20 L (23-29) mEq/L BUN 22 (8-23) mg/dL Creatinine 0.71 (0.60-1.20) mg/dL Est GFR ( Amer) > 60 (> 60) Est GFR (Non-Af Amer) > 60 (> 60) BUN/Creatinine Ratio 31 H (6-26) Glucose 145 H (70-105) mg/dL POC Glucose (70-99) mg/dL Calculated Osmolality 272 L (280-300) Lactic Acid 1.4 (0.5-2.2) mmol/L Calcium 8.8 (8.6-10.3) mg/dL Total Bilirubin 0.6 (0.3-1.0) mg/dL AST 27 (13-39) Units/L ALT 30 (7-52) Units/L Alkaline Phosphatase 95 (34-104) Units/L Troponin I < 0.03 (< 0.04) ng/mL Serum Total Protein 7.3 (6.4-8.9) g/dL Albumin 3.1 L (3.5-5.7) g/dL Globulin 4.2 H (2.4-3.5) g/dL Albumin/Globulin Ratio 0.7 L (1.1-2.2) 08/28/18 Range/Units 16:30 WBC (4.3-11.1) K/mcL RBC (3.82-4.97) M/mcL Hgb (11.5-15.4) g/dL Hct (35.3-44.9) % MCV (83.0-100.0) fL MCH (28.0-33.3) pg MCHC (31.6-35.5) g/dL RDW (11.5-14.5) % Plt Count (140-400) K/mcL MPV (9.4-12.4) fL Immature Gran % (0-4) % Seg Neutrophils % % Lymphocytes % % Monocytes % % Eosinophils % % Basophils % % Neutrophils # (1.6-8.9) K/mcL Lymphocytes # (0.6-4.6) K/mcL Monocytes # (0.0-1.3) K/mcL Eosinophils # (0.0-0.6) K/mcL Basophils # (0.0-0.2) K/mcL Sodium (136-145) mEq/L Potassium (3.5-5.1) mEq/L Chloride (98-107) mEq/L Carbon Dioxide (23-29) mEq/L BUN (8-23) mg/dL Creatinine (0.60-1.20) mg/dL Est GFR ( Amer) (> 60) Est GFR (Non-Af Amer) (> 60) BUN/Creatinine Ratio (6-26) Glucose (70-105) mg/dL POC Glucose 146 H (70-99) mg/dL Calculated Osmolality (280-300) Lactic Acid (0.5-2.2) mmol/L Calcium (8.6-10.3) mg/dL Total Bilirubin (0.3-1.0) mg/dL AST (13-39) Units/L ALT (7-52) Units/L Alkaline Phosphatase (34-104) Units/L Troponin I (< 0.04) ng/mL Serum Total Protein (6.4-8.9) g/dL Albumin (3.5-5.7) g/dL Globulin (2.4-3.5) g/dL Albumin/Globulin Ratio (1.1-2.2) - EKG Data EKG attestation: Yes I reviewed and interpreted this EKG. EKG shows normal: sinus rhythm, axis, intervals, QRS complexes, ST-T waves Rate: normal Interpretation: no acute changes, normal EKG
[2018-08-28] MEDS ORDERED: Acetaminophen 325 MG TABLET PO ONE (15:59)
[2018-08-28] MEDS ORDERED: Ondansetron 4 MG/2 ML VIAL IVP ONE (15:59)
[2018-08-28] MEDS: 0.9 % Sodium Chloride 1,000 ML IVC ONE ×2 (16:14→16:47)
[2018-08-28] MEDS ORDERED: cefTRIAXone 2,000 MG in 0.9 % Sodium Chloride Mini Bag 100 ML IVPB ONE (16:39)
[2018-08-28 16:43] LABS: Basophils % 0.3 %; Eosinophils % 0.1 %; Hematocrit 33.7 % (35.3-44.9); Lymphocytes # 0.9 K/mcL (0.6-4.6); Lymphocytes % 6.7 %; Mean Corpuscular HGB Conc 32.6 g/dL (31.6-35.5); Mean Corpuscular Volume 76.6 fL (83.0-100.0); Monocytes # 1.3 K/mcL (0.0-1.3); Monocytes % 9.5 %; Neutrophils # 11.2 K/mcL (1.6-8.9); Platelet Count 421 K/mcL (140-400); Red Cell Distribution Width 15.6 % (11.5-14.5); Segmented Neutrophils % 82.4 %
[2018-08-28 16:49] LABS: Bilirubin,Urine Negative (Negative); Blood,Urine Small (Negative); Clarity,Urine Slightly Cloudy (Clear); Color,Urine Yellow (Yellow); Glucose,Urine (UA) Normal (Normal); Ketones,Urine Negative (Negative); Leukocyte Esterase,Urine Large (Negative); Nitrite,Urine Positive (Negative); Protein,Urine 100 mg/dL (Neg-Trace); Specific Gravity,Urine 1.015 (1.010-1.025); Urobilinogen,Urine Normal (Normal)
[2018-08-28 16:54] LABS: Alanine Aminotransferase 30 Units/L (7-52); Albumin 3.1 g/dL (3.5-5.7); Albumin/Globulin Ratio 0.7 (1.1-2.2); Alkaline Phosphatase 95 Units/L (34-104); Aspartate Amino Transferase 27 Units/L (13-39); BUN/Creatinine Ratio 31 (6-26); Bilirubin,Total 0.6 mg/dL (0.3-1.0); Blood Urea Nitrogen 22 mg/dL (8-23); Calcium 8.8 mg/dL (8.6-10.3); Carbon Dioxide 20 mEq/L (23-29); Chloride 98 mEq/L (98-107); Globulin 4.2 g/dL (2.4-3.5); Glucose 145 mg/dL (70-105); Osmolality,Calculated 272 (280-300); Potassium 4.3 mEq/L (3.5-5.1); Sodium 128 mEq/L (136-145); Total Protein 7.3 g/dL (6.4-8.9); eGFR For Non-African Americans > 60 (> 60)
[2018-08-28 16:55] LABS: Troponin I < 0.03 ng/mL (< 0.04)
[2018-08-28 17:04] LABS: WBC,Urine 50-100 per hpf (0-3)
[2018-08-28 17:05] LABS: Squamous Epithelial Cell,Urine None Seen per lpf (None-Few)
[2018-08-28 17:06] LABS: Bacteria,Urine Few per hpf (None-Few)
[2018-08-28] MEDS ORDERED: Naloxone 0.4 MG/ML INJ IVP PRN (17:33)
[2018-08-28] MEDS: 0.9 % Sodium Chloride 1,000 ML IVC SCH (18:19)
[2018-08-28] MEDS: Acetaminophen 325 MG TABLET PO SCH (18:20)
[2018-08-28] MEDS: Lactobacillus 1 EACH CAP.SPRINK PO SCH (20:24)
[2018-08-29] MEDS: Acetaminophen 325 MG TABLET PO SCH ×3 (02:03→15:04)
[2018-08-29] MEDS: 0.9 % Sodium Chloride 1,000 ML IVC SCH (02:08)
[2018-08-29] MEDS: Ascorbic Acid 500 MG TABLET PO SCH (05:43)
[2018-08-29 07:27] LABS: BUN/Creatinine Ratio 24 (6-26); Blood Urea Nitrogen 12 mg/dL (8-23); Calcium 7.9 mg/dL (8.6-10.3); Carbon Dioxide 18 mEq/L (23-29); Chloride 107 mEq/L (98-107); Glucose 131 mg/dL (70-105); Osmolality,Calculated 282 (280-300); Potassium 3.2 mEq/L (3.5-5.1); Sodium 135 mEq/L (136-145); eGFR For Non-African Americans > 60 (> 60)
[2018-08-29] MEDS: cefTRIAXone 2,000 MG in 0.9 % Sodium Chloride Mini Bag 100 ML IVPB SCH (09:59)
[2018-08-29] MEDS: Lactobacillus 1 EACH CAP.SPRINK PO SCH ×2 (10:04→21:01)
[2018-08-29] MEDS: Fluticasone Propionate Nasal 50 MCG/SPRAY BOTTLE NS SCH (10:04)
[2018-08-29] MEDS ORDERED: Acetaminophen 325 MG TABLET PO PRN (13:03)
--- NOTE | 2018-08-29 16:13 | Internal Med History&Physical ---
Date of Encounter: 08/29/18 Time of Encounter: 14:45 Assessment and Plan (1) UTI (urinary tract infection) Current visit: Yes Status: Acute She has been started empirically on Rocephin. Lactobacillus will be added. Blood cultures and urine cultures have been sent. Further workup done as needed. Qualifiers: Urinary tract infection type: acute cystitis Hematuria presence: without hematuria Qualified Code(s): N30.00 - Acute cystitis without hematuria (2) Weakness Current visit: Yes Status: Acute She will have PT and OT evaluations with ongoing intervention. (3) Weight loss Current visit: No Status: Chronic Etiology not obvious. TSH was normal at 3.267 on 06/02/2018. CEA was minimally elevated at 5.7 on 06/08/2018. CA 199 was normal at 31 on 07/12/2018. CT of chest, abdomen, and pelvis was unremarkable for significant pathology on 06/29/2018. (4) Fever Current visit: Yes Status: Acute Suspect secondary to UTI. Continue IV Rocephin and IV fluids. Qualifiers: Fever type: unspecified Qualified Code(s): R50.9 - Fever, unspecified (5) DM type 2 (diabetes mellitus, type 2) Current visit: No Status: Chronic Hemoglobin A1c was 6.6% on 08/07/2018. Appears to be diet-controlled. Qualifiers: Diabetes mellitus extermination supervisor insulin use: without extermination supervisor use Diabetes mellitus complication status: with unspecified complications Qualified Code(s): E11.8 - Type 2 diabetes mellitus with unspecified complications (6) Microcytic anemia Current visit: No Status: Acute She received iron sucrose last admission. Recheck anemia testing in a.m. (7) Hypokalemia Current visit: No Status: Chronic Potassium is decreased to 3.2 today. Continue oral and IV supplemental potassium. Internal Medicine - H&P: HPI Chief complaint: UTI, hyponatremia, anemia Admitted From: Emergency Dept Plans for Post Hospital Care: Home History of present illness: Ms. Baker is a 83 year old female who was brought to emergency room from her PCP office after she presented for a qualifying physical examination to move into assisted living at [facility]. She was felt to be dehydrated and possibly have UTI. She was evaluated in emergency room and was found to have fever 101.4 and evidence of UTI. She was admitted to [facility] floor for ongoing care needs. 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 She was discharged on MWF Septra DS twice a day following five-day course of Suprax for document and UTI. She reports seeing her urologist 1 week ago without additional intervention done. She has had frequent UTIs. She had prolapse repair with mesh placement [address] [facility] and umbilical hernia and colpopexy April 2018 at [facility]. She reports kidney stones and ovary cyst in the past but denies other kidney or bladder disorders. Past Med Surg Social Fam HX - Past Medical History Medical history: arthritis, diabetes, hyperlipidemia, kidney stones, renal dis ease, thyroid disease, other Additional medical history: spinal stenosis. severe rectocele. essential tremors. kidney stones Psychiatric history: no psych history - Past Surgical History Surgical History: appendectomy, cataract, cholecystectomy, herniorrhaphy, hip replacement, hysterectomy, orthopedic, other, ureteral stent, other Additional surgical history: 4 cornea transplants. left hip replacement 1998. hernia surgery 2003 - Social History Smoking Status: Never smoker Smokeless Tobacco Status: No Alcohol use: none Drug use: none - Family History Mother Adopted: No Living Status: Hx Family Cardiac Disorders: Yes Hx Family Respiratory Disorders: No Hx Family Cancer: No Hx Family GI Disorders: No Hx Family Endocrine Disorder: No Hx Family Neuromuscular Disorders: No Hx Family Neurologic Disorders: No Hx Family HEENT Disorders: No Hx Family Autoimmune Disorders: No Internal Medicine - H&P: Meds Fluticasone Furoate [Arnuity Ellipta] 100 mcg NS DAILY 02/19/16 [History] Levothyroxine [Synthroid] 50 mcg PO DAILY 02/19/16 [History] Propranolol [Inderal] 10 mg PO BID 02/19/16 [History] Ascorbic Acid [Vitamin C] 500 mg PO DAILY #30 tablet 06/30/18 [Rx] Ferrous Sulfate 325 mg PO DAILY #30 tablet 06/30/18 [Rx] Cefixime [Suprax] 400 mg PO DAILY #5 capsule 08/08/18 [Rx] Lactobacillus [Culturelle] 1 each PO BID #10 cap.sprink 08/08/18 [Rx] Omeprazole [PriLOSEC] 20 mg PO DAILY PRN #0 08/08/18 [Rx] Potassium Chloride 10 meq PO BID #60 tab.er.prt 08/08/18 [Rx] Sulfamethoxazole/Trimeth DS [Bactrim DS] 1 each PO QMWF #12 tablet 08/08/18 [Rx] Allergy/AdvReac Type Severity Reaction Status Date / Time azithromycin Allergy Hives Verified 07/10/18 19:23 [From Zithromax Z-Silviano] ciprofloxacin [From Cipro] Allergy Hives Verified 07/10/18 19:23 gabapentin AdvReac Gastrointestinal Verified 07/11/18 12:36 Upset oxybutynin AdvReac Gastrointestinal Verified 07/11/18 12:36 Upset All Systems PM: A 10-system review of systems was performed and is negative for pertinent findings except as documented above in the HPI. Review of systems: Review of systems from her previous July 2018 [facility] hospitalization were reviewed and revised as below. Gen.: Her weight has decreased from 68.492 kg on 04/12/2018 to 60.98 kg at present. She reported at the March 2018 hospitalization she had lost approx imately 20-25 pounds in the past year, unintentionally. She attributes this to poor appetite. CT scans of chest abdomen and pelvis done May 2018 showed no worrisome pathology. Cardiovascular: She denies hypertension RI heart failure angina DVT or pulmonary embolus Respiratory: She is a lifelong nonsmoker and denies chronic lung disease GI: She has had cholecystectomy. She has GERD. She denies disorders of her liver or exocrine pancreas : She reports frequent UTIs and follows with a urologist in [place]. Neurologic: She has essential tremor. She denies large distribution strokes or seizures. Endocrine: She has DM 2, hypothyroidism and hypertriglyceridemia. Hematology/oncology: She denies blood disorders or cancers. She has had anemia in the past. Psychiatric: She denies anxiety depression or other mental health issues [place] skeletal: She had elective left total hip replacement in the past. She has history of gout. She denies significant arthritis or other bone joint or muscle disorders. - Constitutional Vitals: Temp Pulse Resp BP Pulse Ox 98.6 F 73 16 127/63 96 08/29/18 10:00 08/29/18 10:00 08/29/18 10:00 08/29/18 10:00 08/29/18 10:00 Exam: Gen.: She is a well-developed pale female lying in bed who appears in mild distress with chills and rigors. She is very warm to touch. HEENT: Head is atraumatic and normocephalic. Eyes: EOMI. There is no scleral icterus. Mouth: Mucosa is dry Neck: Supple and nontender. There is no thyromegaly or adenopathy noted. Heart: Regular without murmurs gallops or ectopics Lungs: No wheezes or crackles are heard. Abdomen: Soft and nontender. No masses or guarding are noted. Extremities: There is no cyanosis edema or clubbing noted. Dorsalis pedis and posttibial pulses are trace to 1+ palpable bilaterally. Neurologic: Mental status: She is able to answer some questions but is not talkative. Cranial nerves: Smile is symmetric. Forehead wrinkles bilaterally. Tongue protrudes midline. EOMI. Motor: She moves her arms and legs well to observation without further formal testing done. Skin: Very warm and dry. Internal Med - H&P Results - Labs CBC & Chem 7: 08/28/18 16:26 08/29/18 06:00 Labs: Short CBC 08/28/18 Range/Units 16:26 WBC 13.6 H (4.3-11.1) K/mcL Hgb 11.0 L (11.5-15.4) g/dL Hct 33.7 L (35.3-44.9) % Plt Count 421 H (140-400) K/mcL Neutrophils # 11.2 H (1.6-8.9) K/mcL BMP 08/28/18 08/29/18 16:26 06:00 Sodium 128 L 135 L Potassium 4.3 3.2 L D Chloride 98 107 Carbon Dioxide 20 L 18 L BUN 22 12 Creatinine 0.71 0.51 L Glucose 145 H 131 H Calcium 8.8 7.9 L Cardiac Enzymes 08/28/18 Range/Units 16:26 Troponin I < 0.03 (< 0.04) ng/mL Liver Function 08/28/18 Range/Units 16:26 Total Bilirubin 0.6 (0.3-1.0) mg/dL AST 27 (13-39) Units/L ALT 30 (7-52) Units/L Alkaline Phosphatase 95 (34-104) Units/L Albumin 3.1 L (3.5-5.7) g/dL Urine 10/29/18 Range/Units 16:26 Urine Color Yellow (Yellow) Urine Clarity Slightly Cloudy A (Clear) Urine pH 7.0 (5.0-8.0) pH Units Ur Specific [place] 1.015 (1.010-1.025) Urine Protein 100 H (Neg-Trace) mg/dL Urine Glucose (UA) Normal (Normal) mg/dL
[2018-08-29] MEDS: 0.9 % Sodium Chloride w KCl 20 MEQ/1,000 ML MLS IVC SCH (16:48)
[2018-08-29] MEDS: Acetaminophen 325 MG TABLET PO PRN (16:56)
[2018-08-30 05:23] LABS: Basophils % 0.3 %; Eosinophils % 0.2 %; Hematocrit 31.4 % (35.3-44.9); Hemoglobin 10.2 g/dL (11.5-15.4); Lymphocytes # 1.2 K/mcL (0.6-4.6); Lymphocytes % 8.7 %; Mean Corpuscular HGB Conc 32.5 g/dL (31.6-35.5); Monocytes # 1.2 K/mcL (0.0-1.3); Monocytes % 8.9 %; Neutrophils # 10.4 K/mcL (1.6-8.9); Platelet Count 346 K/mcL (140-400); Red Blood Count 4.08 M/mcL (3.82-4.97); Red Cell Distribution Width 16.3 % (11.5-14.5); Segmented Neutrophils % 78.9 %
[2018-08-30] MEDS: Ascorbic Acid 500 MG TABLET PO SCH (05:54)
[2018-08-30] MEDS: 0.9 % Sodium Chloride w KCl 20 MEQ/1,000 ML MLS IVC SCH (06:01)
[2018-08-30] MEDS: cefTRIAXone 2,000 MG in 0.9 % Sodium Chloride Mini Bag 100 ML IVPB SCH (09:12)
[2018-08-30] MEDS: Fluticasone Propionate Nasal 50 MCG/SPRAY BOTTLE NS SCH (09:13)
[2018-08-30] MEDS: Lactobacillus 1 EACH CAP.SPRINK PO SCH ×2 (09:13→21:15)
[2018-08-30 09:15] LABS: Folate 7.2 ng/mL (3.0-16.0)
[2018-08-30 09:36] LABS: Ferritin 1052 ng/mL (10-120); Iron < 10 mcg/dL (50-170); Transferrin 93 mg/dL (203-362)
--- NOTE | 2018-08-30 15:17 | Internal Med Progress Note ---
Date of Encounter: 08/30/18 Time of Encounter: 15:10 - Assessment and plan (1) UTI (urinary tract infection) Current Visit: Yes Status: Acute Assessment and plan: August 30. Preliminary urine culture report shows gram-negative rods. Continue Rocephin and lactobacillus empirically. Qualifiers: Urinary tract infection type: acute cystitis Hematuria presence: without hematuria Qualified Code(s): N30.00 - Acute cystitis without hematuria (2) Weakness Current Visit: Yes Status: Acute Assessment and plan: August 30. Continue PT and OT intervention. (3) Weight loss Current Visit: No Status: Chronic Assessment and plan: August 30. Etiology not obvious. TSH was normal at 3.267 on 06/02/2018. CEA was minimally elevated at 5.7 on 06/08/2018. CA 199 was normal at 31 on 07/12/2018. CT of chest, abdomen, and pelvis was unremarkable for significant pathology on 06/29/2018. (4) Fever Current Visit: Yes Status: Acute Assessment and plan: August 30. Improved. Continue IV Rocephin Qualifiers: Fever type: unspecified Qualified Code(s): R50.9 - Fever, unspecified (5) DM type 2 (diabetes mellitus, type 2) Current Visit: No Status: Chronic Assessment and plan: August 30. Hemoglobin A1c was 6.6% on 08/07/2018. Appears diet-controlled. Qualifiers: Diabetes mellitus meterman insulin use: without care home use Diabetes mellitus complication status: with unspecified complications Qualified Code(s): E11.8 - Type 2 diabetes mellitus with unspecified complications (6) Microcytic anemia Current Visit: No Status: Acute Assessment and plan: August 30. Anemia testing shows iron < 10, transferrin 93, ferritin 1052, B12 583, and folate 7.2. Hemoglobin decreased to 10.2. She probably needs referral to hematology/oncology as an outpatient for further evaluation including possible bone marrow aspiration/biopsy. (7) Hypokalemia Current Visit: No Status: Chronic (8) Constipation Current Visit: Yes Status: Acute Assessment and plan: August 30. Add scheduled Colace and FiberCon Qualifiers: Constipation type: unspecified constipation type Qualified Code(s): K59.00 - Constipation, unspecified - Subjective Interval history: August 30. She has no new complaints except she feels constipated. - Constitutional Vitals: Temp Pulse Resp BP Pulse Ox 99.3 F 71 16 121/73 98 08/30/18 10:00 08/30/18 10:00 08/30/18 10:00 08/30/18 10:00 08/30/18 10:00 Exam: She is resting comfortably in bed and appears in no acute distress. She is much more coherent and talkative. Her affect is bright and cheerful. I reviewed her medications and lab results. Internal Medicine: Result - Labs CBC & Chem 7: 08/30/18 04:37 08/29/18 06:00 Labs: Short CBC 08/30/18 Range/Units 04:37 WBC 13.2 H (4.3-11.1) K/mcL Hgb 10.2 L (11.5-15.4) g/dL Hct 31.4 L (35.3-44.9) % Plt Count 346 (140-400) K/mcL Neutrophils # 10.4 H (1.6-8.9) K/mcL Consult Discharge Plan - Plan Referrals: Charity Pike, MANAGER FUNCTIONAL [Primary Care Provider] - 1 week
[2018-08-31 06:23] LABS: Basophils % 0.3 %; Eosinophils # 0.1 K/mcL (0.0-0.6); Eosinophils % 1.1 %; Hematocrit 31.2 % (35.3-44.9); Hemoglobin 10.2 g/dL (11.5-15.4); Lymphocytes # 1.5 K/mcL (0.6-4.6); Lymphocytes % 13.7 %; Mean Corpuscular HGB Conc 32.7 g/dL (31.6-35.5); Mean Corpuscular Hemoglobin 24.6 pg (28.0-33.3); Mean Corpuscular Volume 75.2 fL (83.0-100.0); Mean Platelet Volume 9.3 fL (9.4-12.4); Monocytes # 0.9 K/mcL (0.0-1.3); Monocytes % 8.4 %; Platelet Count 362 K/mcL (140-400); Red Blood Count 4.15 M/mcL (3.82-4.97); Red Cell Distribution Width 16.3 % (11.5-14.5); Segmented Neutrophils % 75.5 %
[2018-08-31] MEDS: Ascorbic Acid 500 MG TABLET PO SCH (06:35)
[2018-08-31 06:45] LABS: BUN/Creatinine Ratio 17 (6-26); Blood Urea Nitrogen 6 mg/dL (8-23); Calcium 8.1 mg/dL (8.6-10.3); Carbon Dioxide 22 mEq/L (23-29); Chloride 102 mEq/L (98-107); Glucose 108 mg/dL (70-105); Osmolality,Calculated 278 (280-300); Potassium 2.9 mEq/L (3.5-5.1); Sodium 135 mEq/L (136-145); eGFR For Non-African Americans > 60 (> 60)
[2018-08-31] MEDS: Acetaminophen 325 MG TABLET PO PRN ×2 (07:45→21:06)
[2018-08-31] MEDS: Lactobacillus 1 EACH CAP.SPRINK PO SCH ×2 (08:10→21:05)
[2018-08-31] MEDS: cefTRIAXone 2,000 MG in 0.9 % Sodium Chloride Mini Bag 100 ML IVPB SCH (08:12)
[2018-08-31] MEDS: Fluticasone Propionate Nasal 50 MCG/SPRAY BOTTLE NS SCH (08:13)
--- NOTE | 2018-08-31 10:20 | Internal Med Progress Note ---
Date of Encounter: 08/31/18 Time of Encounter: 10:10 - Assessment and plan (1) UTI (urinary tract infection) Current Visit: Yes Status: Acute Assessment and plan: August 30. Preliminary urine culture report shows gram-negative rods. Continue Rocephin and lactobacillus empirically. August 31. Urine culture shows Pseudomonas aeruginosa with final sensitivity report pending. Continue Rocephin and lactobacillus empirically. Qualifiers: Urinary tract infection type: acute cystitis Hematuria presence: without hematuria Qualified Code(s): N30.00 - Acute cystitis without hematuria (2) Weakness Current Visit: Yes Status: Acute Assessment and plan: August 30. Continue PT and OT intervention. (3) Weight loss Current Visit: No Status: Chronic Assessment and plan: August 30. Etiology not obvious. TSH was normal at 3.267 on 06/02/2018. CEA was minimally elevated at 5.7 on 06/08/2018. CA 199 was normal at 31 on 07/12/2018. CT of chest, abdomen, and pelvis was unremarkable for significant pathology on 06/29/2018. (4) Fever Current Visit: Yes Status: Acute Assessment and plan: August 30. Improved. Continue IV Rocephin Qualifiers: Fever type: unspecified Qualified Code(s): R50.9 - Fever, unspecified (5) DM type 2 (diabetes mellitus, type 2) Current Visit: No Status: Chronic Assessment and plan: August 30. Hemoglobin A1c was 6.6% on 08/07/2018. Appears diet-controlled. Qualifiers: Diabetes mellitus fdc insulin use: without watermelon harvesting supervisor use Diabetes mellitus complication status: with unspecified complications Qualified Code(s): E11.8 - Type 2 diabetes mellitus with unspecified complications (6) Microcytic anemia Current Visit: No Status: Acute Assessment and plan: August 30. Anemia testing shows iron < 10, transferrin 93, ferritin 1052, B12 583, and folate 7.2. Hemoglobin decreased to 10.2. She probably needs referral to hematology/oncology as an outpatient for further evaluation including possible bone marrow aspiration/biopsy. August 31. Hemoglobin stable at 10.2. Continue oral ferrous sulfate with ascorbic acid. (7) Hypokalemia Current Visit: No Status: Chronic Assessment and plan: August 31. Increase supplemental potassium. (8) Constipation Current Visit: Yes Status: Acute Assessment and plan: August 30. Add scheduled Colace and FiberCon Qualifiers: Constipation type: unspecified constipation type Qualified Code(s): K59.00 - Constipation, unspecified - Subjective Interval history: August 30. She has no new complaints except she feels constipated. August 31. She has no new complaints and feels better - Constitutional Vitals: Temp Pulse Resp BP Pulse Ox 98.7 F 75 14 101/55 94 08/31/18 06:37 08/31/18 06:37 08/31/18 06:37 08/31/18 06:37 08/31/18 06:37 Exam: She is resting comfortably in bed and is in no acute distress. Her affect is bright and cheerful. I reviewed her medications and discussed pertinent lab results with her. Internal Medicine: Result - Labs CBC & Chem 7: 08/31/18 04:47 08/31/18 04:47 Labs: Short CBC 08/31/18 Range/Units 04:47 WBC 10.6 (4.3-11.1) K/mcL Hgb 10.2 L (11.5-15.4) g/dL Hct 31.2 L (35.3-44.9) % Plt Count 362 (140-400) K/mcL Neutrophils # 8.0 (1.6-8.9) K/mcL BMP 08/31/18 04:47 Sodium 135 L Potassium 2.9 L Chloride 102 Carbon Dioxide 22 L BUN 6 L Creatinine 0.36 L Glucose 108 H Calcium 8.1 L Consult Discharge Plan - Plan Referrals: Charity Pike, [facility]AUP[facility]A MAORI [Primary Care Provider] - 1 week
[2018-08-31] MEDS: Magnesium Oxide 400 MG TABLET PO SCH (21:05)
[2018-09-01] MEDS: Ascorbic Acid 500 MG TABLET PO SCH (06:31)
[2018-09-01 07:29] LABS: BUN/Creatinine Ratio 23 (6-26); Blood Urea Nitrogen 9 mg/dL (8-23); Calcium 9.4 mg/dL (8.6-10.3); Carbon Dioxide 24 mEq/L (23-29); Chloride 104 mEq/L (98-107); Glucose 95 mg/dL (70-105); Osmolality,Calculated 284 (280-300); Potassium 3.8 mEq/L (3.5-5.1); Sodium 138 mEq/L (136-145); eGFR For Non-African Americans > 60 (> 60)
[2018-09-01 09:25] VITALS: BP 114/50
[2018-09-01] MEDS: Magnesium Oxide 400 MG TABLET PO SCH (09:29)
[2018-09-01] MEDS: Lactobacillus 1 EACH CAP.SPRINK PO SCH (09:29)
[2018-09-01] MEDS: Fluticasone Propionate Nasal 50 MCG/SPRAY BOTTLE NS SCH (09:30)
[2018-09-01] MEDS: cefTRIAXone 2,000 MG in 0.9 % Sodium Chloride Mini Bag 100 ML IVPB SCH (09:30)
--- NOTE | 2018-09-01 14:06 | Discharge Summary ---
Orders not resulted at time of discharge: Pending orders 08/28/18 16:26 Culture,Blood [BC] Stat Culture,Urine [RM] Stat Date of Encounter: 09/01/18 Time of Encounter: 13:55 - Discharge Diagnosis (1) UTI (urinary tract infection) Priority: Primary Status: Acute Qualifiers: Urinary tract infection type: acute cystitis Hematuria presence: without hematuria Qualified Code(s): N30.00 - Acute cystitis without hematuria (2) Weakness Priority: Secondary Status: Acute (3) Weight loss Priority: Secondary Status: Chronic (4) Fever Priority: Secondary Status: Acute Qualifiers: Fever type: unspecified Qualified Code(s): R50.9 - Fever, unspecified (5) DM type 2 (diabetes mellitus, type 2) Priority: Secondary Status: Chronic Qualifiers: Diabetes mellitus termite treater helper insulin use: without fci use Diabetes mellitus complication status: with unspecified complications Qualified Code(s): E11.8 - Type 2 diabetes mellitus with unspecified complications (6) Microcytic anemia Priority: Secondary Status: Acute (7) Hypokalemia Priority: Secondary Status: Chronic (8) Constipation Priority: Secondary Status: Acute Qualifiers: Constipation type: unspecified constipation type Qualified Code(s): K59.00 - Constipation, unspecified Hospital course: Ms. Baker is a 83 year old female who was brought to emergency room from her PCP office after she presented for a qualifying physical examination to move into assisted living at [facility]. She was felt to be dehydrated and possibly have UTI. She was evaluated in emergency room and was found to have fever 101.4 and evidence of UTI. She was admitted to [facility] floor for ongoing care needs. Initial orders were written by the emergency room physician. I saw her on August 29 and performed the history and physical. She was started empirically on Rocephin with lactobacillus. Blood culture showed no growth at time of discharge. Urine culture showed pseudomonas aeruginosa with final sensitivity report pending at time of discharge. I spoke with microbiology lab and they reported it may be 1-2 additional days before the final sensitivity report is available. WBC and left shift normalized by August 31. She will be discharged on Suprax for 5 days with lactobacillus. Anemia testing showed iron< 10, transferrin 93, ferritin 1052, B12 583, and folate 7.2. Hemoglobin decreased to 10.2 on day prior to discharge. She would probably benefit from referral to hematology/oncology as an outpatient for further evaluation including possible bone marrow aspiration/biopsy. Her PCP can order this. She developed recurrent hypokalemia and supplemental potassium dose was i ncreased. This can be monitored by her PCP. On September 01 arrangements were complete for her to be discharged to assisted living apartment at [facility]. She will follow with her PCP Charity Pike CNP. - Time Spent with Patient Total time spent providing and/or coordinating discharge services: - Discharge Medications Prescriptions: Cefixime [Suprax] 400 mg PO DAILY #5 capsule Lactobacillus [Culturelle] 1 each PO BID #10 cap.sprink Magnesium Oxide [Mag-Ox] 400 mg PO BID #10 tablet Potassium Chloride 20 meq PO BID #120 tab.er.prt Home Medications: Fluticasone Furoate [Arnuity Ellipta] 100 mcg NS DAILY 02/19/16 [History] Levothyroxine [Synthroid] 50 mcg PO DAILY 02/19/16 [History] Propranolol [Inderal] 10 mg PO BID 02/19/16 [History] Ascorbic Acid [Vitamin C] 500 mg PO DAILY #30 tablet 06/30/18 [Rx] Ferrous Sulfate 325 mg PO DAILY #30 tablet 06/30/18 [Rx] Omeprazole [PriLOSEC] 20 mg PO DAILY PRN #0 08/08/18 [Rx] Sulfamethoxazole/Trimeth DS [Bactrim Ds] 1 each PO QMWF #12 tablet 08/08/18 [Rx] Cefixime [Suprax] 400 mg PO DAILY #5 capsule 09/01/18 [Rx] Lactobacillus [Culturelle] 1 each PO BID #10 cap.sprink 09/01/18 [Rx] Magnesium Oxide [Mag-Ox] 400 mg PO BID #10 tablet 09/01/18 [Rx] Potassium Chloride 20 meq PO BID #120 tab.er.prt 09/01/18 [Rx] Allergies/Adverse Reactions: Allergy/AdvReac Type Severity Reaction Status Date / Time azithromycin Allergy Hives Verified 07/10/18 19:23 [From Zithromax Z-Silviano] ciprofloxacin [From Cipro] Allergy Hives Verified 07/10/18 19:23 gabapentin AdvReac Gastrointestinal Verified 07/11/18 12:36 Upset oxybutynin AdvReac Gastrointestinal Verified 07/11/18 12:36 Upset Date of admission: 08/29/18 15:23 Primary care physician: Charity Pike CNP Consults: 08/28/18 17:33 Consult to Jr. Systems Administrator [CONS] Routine Reason for SW Consult: Evaluation for possible rehabilitation/[facility] placement. 08/28/18 18:12 Consult to Nutrition [CONS] Routine Comment: Consulting Provider: NUTRITION Reason for Dietary Consult: MST Score Consult to Jr. Systems Administrator [CONS] Routine Reason for SW Consult: d/c planning - patient has increased weakness and has had multiple hospitalizations 08/29/18 09:42 Consult to Occupational Therapy [CONS] Routine Comment: Evaluate, develop and implement POC Reason for Consult: Weakness Does patient have active BEDREST order?: No Is patient medically & hemodynamically stable?: Yes Patient assessed for mobility or mobilized this visit?: Yes Consult to Physical Therapy [CONS] Routine Comment: Evaluate, develop and implement POC Reason for Consult: Weakness Does patient have active BEDREST order?: No Is patient medically & hemodynamically stable?: Yes Patient assessed for mobility or mobilized this visit?: Yes - Constitutional Vitals: Temp Pulse Resp BP Pulse Ox 98.3 F 67 18 114/50 98 09/01/18 09:23 09/01/18 09:23 09/01/18 09:23 09/01/18 09:23 09/01/18 09:23 - Patient Status Disposition: Transfer SNF Condition: Fair - Discharge Instructions Follow Up With: Charity Pike CNP [Primary Care Provider] - 1 week - Diet and Activity Activity: resume usual activities as tolerated Diet: advance to your usual diet
--- NOTE | 2018-09-01 19:26 | Electrocardiograph Report ---
[address] [address] Test Date: 2018-08-28 Pat Name: Bette Baker Department: [id number] Room: [facility] Gender: F Interactive Project Manager: Clemente : 1935 Requested By: Jeff Cross Order Number: [id number] Reading MD: Javier Moore Measurements Intervals [place] Rate: 94 P: 54 SD: 183 QRS: -11 QRSD: 73 T: 49 QT: 330 QTc: 382 Interpretive Statements SINUS RHYTHM LOW QRS VOLTAGE IN PRECORDIAL LEADS Electronically Signed On 09-01-2018 19:25:13 EDT by Javier Moore
== END 2018-09-01 15:15 | DRG 690 ==
LOC: INPPIK 15:48 → EMEROOPIK 15:48 → INPPIK 17:55
PROVIDERS: ADMIT Internal Medicine; ATTEND Internal Medicine

== ENCOUNTER 2018-09-13 14:00 | Observation (INO) ==
--- NOTE | 2018-09-13 14:10 | Emergency Department Note ---
Disposition Clinical Impression: Cystitis, Confusion associated with infection Diabetes mellitus type 2, uncontrolled Qualifiers: Glycemic state: with hyperglycemia Qualified Code(s): E11.65 - Type 2 diabetes mellitus with hyperglycemia Disposition: Admitted As Inpatient Condition: Undetermined Referrals: NONE,PCP [Primary Care Provider] - Forms: ED Satisfaction Letter Time of Disposition: 15:17 General Adult HPI - General Chief complaint: ED Urogenital-Female Stated complaint: more confused, incont Time Seen by Provider: 09/13/18 14:02 Source: EMS Mode of arrival: EMS Nursing Notes Reviewed: Yes Vital Signs Reviewed: Yes - History of Present Illness HPI Narrative: Patient is a pleasant 83-year-old female with past medical history significant for HTN, DM, Dyslipidemia and dementia who is presenting to [facility] Emergency Room with a chief complaint off confusion and altered mental status from the halfway. They also noticed that she has incontinence to urine in the past few days. Patient is a very poor historian she denies any complaints. Patient denies any fever, chills or night sweats. Pt also denies any eye pain or visual disturbances. There is no sore throat, nasal drainages or facial congestion. There is no chest pain, palpitations or racing heart. Pt also denies any shortness of breath, cough or chest congestion. There is no abdominal pain, nausea, vomiting or diarrhea. There is urgency, frequency and incontinence reported from SNF. There is no muskulo-skeletal pain, arthralgia or back pain. Patient also denies any rash, edema or pruritus. There is no neurological manifestations, no headache, no vertigo or weakness. The patient a lso denies any anxiety, depression, hallucinations and has no homicidal or suicidal ideations. There is no polyuria, polydipsia or recent weight change. There is no easy bruising or bleeding. Review of other systems is otherwise negative except above. Onset (ago): Just DINING ROOM CAPTAIN Location: head Radiation: non-radiation Pain Severity: moderate - Related Data Home Medications Medication Instructions Recorded Confirmed Levothyroxine [Synthroid] 50 mcg PO DAILY 02/19/16 08/28/18 Propranolol [Inderal] 10 mg PO BID 02/19/16 08/28/18 Docusate [Colace] 100 mg PO BID 09/13/18 09/13/18 Meclizine [Antivert] 12.5 mg PO BID PRN 09/13/18 09/13/18 Mirtazapine 7.5 mg PO DAILY 09/13/18 09/13/18 Polyethylene Glycol 3350 [MiraLAX] 17 gm PO DAILY 09/13/18 09/13/18 Primidone [Mysoline] 50 mg PO BID 09/13/18 09/13/18 Solifenacin Succinate [Vesicare] 10 mg PO 09/13/18 09/13/18 Previous Rx's Medication Instructions Recorded Ascorbic Acid [Vitamin C] 500 mg PO DAILY #30 tablet 06/30/18 Ferrous Sulfate 325 mg PO DAILY #30 tablet 06/30/18 Omeprazole [PriLOSEC] 20 mg PO DAILY PRN #0 08/08/18 Sulfamethoxazole/Trimeth DS 1 each PO QMWF #12 tablet 08/08/18 [Bactrim Ds] Lactobacillus [Culturelle] 1 each PO BID #10 cap.sprink 09/01/18 Potassium Chloride 20 meq PO BID #120 tab.er.prt 09/01/18 Allergies Allergy/AdvReac Type Severity Reaction Status Date / Time azithromycin Allergy Hives Verified 09/13/18 14:02 [From Zithromax Z-Silviano] ciprofloxacin [From Cipro] Allergy Hives Verified 09/13/18 14:02 gabapentin AdvReac Gastrointestinal Verified 09/13/18 14:02 Upset oxybutynin AdvReac Gastrointestinal Verified 09/13/18 14:02 Upset All systems ED: reviewed and negative except as stated. Review of Systems: As Per HPI Constitutional: Reports: weakness, other (lethargy). Denies: fever, chills, weight change Eyes: Denies: eye pain, eye discharge, vision change ENT ED: Denies: ear pain, throat pain, dental pain, hearing loss, epistaxis, congestion, dysphagia Cardiovascular: Denies: chest pain, palpitations, dyspnea on exertion, edema, syncope Respiratory: Denies: cough, dyspnea, wheezes, hemoptysis, stridor Gastrointestinal: Denies: abdominal pain, nausea, vomiting, diarrhea, constipation, hematemesis, melena, hematochezia Genitourinary: Reports: urgency, dysuria, frequency. Denies: hematuria, discharge Musculoskeletal: Denies: back pain, neck pain, arthralgia, myalgia Integumentary: Denies: rash, abrasion, lesions Neurological: Denies: headache, weakness, numbness, paresthesias, confusion, abnormal gait, vertigo Psychiatric: Denies: anxiety, depression, suicidal thoughts, homicidal thoughts, auditory hallucinations, visual hallucinations Endocrine: Denies: fatigue Hematological/Lymphatic: Denies: easy bleeding, easy bruising Allergic/Immunologic: Denies: facial swelling, urticaria Past Medical History - Past Medical History Medical history: Reports: arthritis, diabetes, hyperlipidemia, kidney stones, renal disease, thyroid disease, other Surgical history: Reports: appendectomy, cataract, cholecystectomy, herniorrhaphy, hip replacement, hysterectomy, orthopedic, other, ureteral stent, other Psychiatric history: Reports: no psych history PROTOTYPER history: Reports: bilateral tubal ligation - Social History Smoking Status: Never smoker Smokeless Tobacco Status: No Alcohol use: Reports: none Drug use: Reports: none Physical Exam - General Limitations: no limitations, altered mental status General appearance: alert, in no apparent distress, lethargic - Head Head exam: atraumatic, normocephalic, normal inspection - Eye Eye exam: Present: normal appearance, PERRL, EOMI - Expanded Eye Exam Pupils: Left: reactive - ENT ENT exam: normal exam, normal oropharynx, mucous membranes dry - Expanded ENT Exam External ear exam: Present: normal external inspection Mouth exam: Present: normal external inspection Teeth exam: Present: normal inspection Throat exam: Present: normal inspection - Neck Neck exam: Present: normal inspection, full ROM, trachea midline - Chest Chest inspection: Present: normal inspection, symmetric chest wall rise - Respiratory Respiratory exam: Present: normal lung sounds bilaterally - Cardiovascular Cardiovascular exam: Present: regular rate, normal rhythm, normal heart sounds - Abdominal Exam Abdominal exam: Present: soft, Non-Tender. Absent: tenderness, distention, guarding, rebound, rigidity - Extremities Exam Extremities exam: Present: normal inspection, full ROM. Absent: tenderness, pedal edema - Expanded Upper Extremity Exam Shoulder exam: Present: normal inspection, full ROM Arm exam: Present: normal inspection, full ROM Elbow exam: Present: normal inspection, full ROM Forearm/Wrist exam: Present: normal inspection, full ROM Hand exam: Present: normal inspection, full ROM Vascular exam: Normal: capillary refill, radial pulse - Expanded Lower Extremity Exam Hip/Pelvis exam: Present: normal inspection, full ROM Upper leg exam: Present: normal inspection, full ROM Knee exam: Present: normal inspection, full ROM Lower leg exam: Present: normal inspection, full ROM Ankle exam: Present: normal inspection, full ROM Foot/toe exam: Present: normal inspection, full ROM Neurovascular/Tendon exam: Absent: motor deficit, sensory deficit, tendon deficit - Back Exam Back exam: Present: normal inspection, full ROM. Absent: tenderness - Neurological Exam Neurological exam: Present: alert, oriented X3 - Expanded Neurological Exam Patient oriented to: Present: person, place, time Coma Scale Eye Opening: Spontaneous Coma Scale Motor Response: Obeys Commands Coma Scale Verbal Response: Oriented Coma Scale Total: 15 - Psychiatric Psychiatric exam: Present: normal affect, normal mood - Skin Skin exam: Present: warm, dry, intact, normal color Course Vital Signs Temperature 99.2 F 09/13/18 14:03 Pulse Rate 94 09/13/18 14:03 Respiratory Rate 18 09/13/18 14:03 Blood Pressure 137/63 09/13/18 14:03 O2 Sat by Pulse Oximetry 98 09/13/18 14:03 Temperature 99.2 F 09/13/18 14:03 Pulse Rate 88 09/13/18 15:21 Respiratory Rate 18 09/13/18 15:21 Blood Pressure 114/59 09/13/18 15:21 O2 Sat by Pulse Oximetry 96 09/13/18 15:21 Oxygen Delivery Oxygen Delivery Room Air Medical Decision Making - [facility] Narrative Medical decision making narrative: Paged Dr. Hernandez for admission at 3 PM - Medical Records Medical records reviewed: Yes I reviewed the patient's medical records. - Lab Data Lab results reviewed: Yes I reviewed the patient's lab results. Result diagrams: 09/13/18 14:36 09/13/18 14:36 Lab Results 09/13/18 09/13/18 09/13/18 Range/Units 14:34 14:36 14:36 WBC 10.7 (4.3-11.1) K/mcL RBC 4.30 (3.82-4.97) M/mcL Hgb 10.6 L (11.5-15.4) g/dL Hct 32.6 L (35.3-44.9) % MCV 75.8 L (83.0-100.0) fL MCH 24.7 L (28.0-33.3) pg MCHC 32.5 (31.6-35.5) g/dL RDW 16.9 H (11.5-14.5) % Plt Count 401 H (140-400) K/mcL MPV 8.6 L (9.4-12.4) fL Immature Gran % 0.6 (0-4) % Seg Neutrophils % 81.0 % Lymphocytes % 6.6 % Monocytes % 11.4 % Eosinophils % 0.1 % Basophils % 0.3 % Neutrophils # 8.7 (1.6-8.9) K/mcL Lymphocytes # 0.7 (0.6-4.6) K/mcL Monocytes # 1.2 (0.0-1.3) K/mcL Eosinophils # 0.0 (0.0-0.6) K/mcL Basophils # 0.0 (0.0-0.2) K/mcL PT 19.2 H (9.4-12.1) Seconds INR 1.7 APTT 32.3 (26.0-36.0) Seconds Sodium (136-145) mEq/L Potassium (3.5-5.1) mEq/L Chloride (98-107) mEq/L Carbon Dioxide (23-29) mEq/L BUN (8-23) mg/dL Creatinine (0.60-1.20) mg/dL Est GFR ( Amer) (> 60) Est GFR (Non-Af Amer) (> 60) BUN/Creatinine Ratio (6-26) Glucose (70-105) mg/dL POC Glucose (70-99) mg/dL Calculated Osmolality (280-300) Calcium (8.6-10.3) mg/dL Total Bilirubin (0.3-1.0) mg/dL Direct Bilirubin (0.0-0.2) mg/dL Indirect Bilirubin (0.0-1.2) mg/dL AST (13-39) Units/L ALT (7-52) Units/L Alkaline Phosphatase (34-104) Units/L Troponin I (< 0.04) ng/mL Serum Total Protein (6.4-8.9) g/dL Albumin (3.5-5.7) g/dL Globulin (2.4-3.5) g/dL Albumin/Globulin Ratio (1.1-2.2) Urine Color Yellow (Yellow) Urine Clarity Slightly Cloudy A (Clear) Urine pH 7.0 (5.0-8.0) pH Units Ur Specific Excello 1.015 (1.010-1.025) Urine Protein 30 H (Neg-Trace) mg/dL Urine Glucose (UA) Normal (Normal) mg/dL Urine Ketones Negative (Negative) mg/dL Urine Blood Moderate H (Negative) Urine Nitrite Positive A (Negative) Urine Bilirubin Negative (Negative) Urine Urobilinogen Normal (Normal) mg/dL Ur Leukocyte Esterase Large H (Negative) Urine Microscopic RBC 3-5 H (0-3) per hpf Urine Microscopic WBC 50-100 H (0-3) per hpf Urine Bacteria Moderate H (None-Few) per hpf Ur Culture Indicated? YES A (NO) 09/13/18 09/13/18 Range/Units 14:36 14:47 WBC (4.3-11.1) K/mcL RBC (3.82-4.97) M/mcL Hgb (11.5-15.4) g/dL Hct (35.3-44.9) % MCV (83.0-100.0) fL MCH (28.0-33.3) pg MCHC (31.6-35.5) g/dL RDW (11.5-14.5) % Plt Count (140-400) K/mcL MPV (9.4-12.4) fL Immature Gran % (0-4) % Seg Neutrophils % % Lymphocytes % % Monocytes % % Eosinophils % % Basophils % % Neutrophils # (1.6-8.9) K/mcL Lymphocytes # (0.6-4.6) K/mcL Monocytes # (0.0-1.3) K/mcL Eosinophils # (0.0-0.6) K/mcL Basophils # (0.0-0.2) K/mcL PT (9.4-12.1) Seconds INR APTT (26.0-36.0) Seconds Sodium 128 L (136-145) mEq/L Potassium 3.8 (3.5-5.1) mEq/L Chloride 98 (98-107) mEq/L Carbon Dioxide 19 L (23-29) mEq/L BUN 17 (8-23) mg/dL Creatinine 0.70 (0.60-1.20) mg/dL Est GFR ( Amer) > 60 (> 60) Est GFR (Non-Af Amer) > 60 (> 60) BUN/Creatinine Ratio 24 (6-26) Glucose 320 H (70-105) mg/dL POC Glucose 275 H (70-99) mg/dL Calculated Osmolality 280 (280-300) Calcium 8.8 (8.6-10.3) mg/dL Total Bilirubin 0.6 (0.3-1.0) mg/dL Direct Bilirubin 0.1 (0.0-0.2) mg/dL Indirect Bilirubin 0.5 (0.0-1.2) mg/dL AST 32 (13-39) Units/L ALT 36 (7-52) Units/L Alkaline Phosphatase 110 H (34-104) Units/L Troponin I < 0.03 (< 0.04) ng/mL Serum Total Protein 7.2 (6.4-8.9) g/dL Albumin 3.0 L (3.5-5.7) g/dL Globulin 4.2 H (2.4-3.5) g/dL Albumin/Globulin Ratio 0.7 L (1.1-2.2) Urine Color (Yellow) Urine Clarity (Clear) Urine pH (5.0-8.0) pH Units Ur Specific Excello (1.010-1.025) Urine Protein (Neg-Trace) mg/dL Urine Glucose (UA) (Normal) mg/dL Urine Ketones (Negative) mg/dL Urine Blood (Negative) Urine Nitrite (Negative) Urine Bilirubin (Negative) Urine Urobilinogen (Normal) mg/dL Ur Leukocyte Esterase (Negative) Urine Microscopic RBC (0-3) per hpf Urine Microscopic WBC (0-3) per hpf Urine Bacteria (None-Few) per hpf Ur Culture Indicated? (NO) - Radiology Data Radiology results reviewed: Yes I reviewed the patient's radiology results.
[2018-09-13 14:35] LABS: Bilirubin,Urine Negative (Negative); Blood,Urine Moderate (Negative); Clarity,Urine Slightly Cloudy (Clear); Color,Urine Yellow (Yellow); Glucose,Urine (UA) Normal (Normal); Ketones,Urine Negative (Negative); Leukocyte Esterase,Urine Large (Negative); Nitrite,Urine Positive (Negative); Protein,Urine 30 mg/dL (Neg-Trace); Specific Gravity,Urine 1.015 (1.010-1.025); Urobilinogen,Urine Normal (Normal)
[2018-09-13 14:42] LABS: Bacteria,Urine Moderate per hpf (None-Few); WBC,Urine 50-100 per hpf (0-3)
[2018-09-13] MEDS ORDERED: cefTRIAXone 2,000 MG in Water for inj. (sterile) 20 ML 20 ML IVP ONE (14:46)
[2018-09-13 14:47] LABS: Basophils % 0.3 %; Eosinophils % 0.1 %; Hematocrit 32.6 % (35.3-44.9); Hemoglobin 10.6 g/dL (11.5-15.4); Immature Granulocytes % 0.6 % (0-4); Lymphocytes # 0.7 K/mcL (0.6-4.6); Lymphocytes % 6.6 %; Mean Corpuscular HGB Conc 32.5 g/dL (31.6-35.5); Mean Corpuscular Hemoglobin 24.7 pg (28.0-33.3); Mean Corpuscular Volume 75.8 fL (83.0-100.0); Mean Platelet Volume 8.6 fL (9.4-12.4); Monocytes # 1.2 K/mcL (0.0-1.3); Monocytes % 11.4 %; Neutrophils # 8.7 K/mcL (1.6-8.9); Platelet Count 401 K/mcL (140-400); Red Cell Distribution Width 16.9 % (11.5-14.5)
[2018-09-13 14:55] LABS: INR 1.7; Prothrombin Time 19.2 Seconds (9.4-12.1)
[2018-09-13 15:03] LABS: Activated Partial Thrombo Time 32.3 Seconds (26.0-36.0)
[2018-09-13 15:06] LABS: Alanine Aminotransferase 36 Units/L (7-52); Albumin/Globulin Ratio 0.7 (1.1-2.2); Alkaline Phosphatase 110 Units/L (34-104); Aspartate Amino Transferase 32 Units/L (13-39); BUN/Creatinine Ratio 24 (6-26); Bilirubin,Direct 0.1 mg/dL (0.0-0.2); Bilirubin,Indirect 0.5 mg/dL (0.0-1.2); Bilirubin,Total 0.6 mg/dL (0.3-1.0); Blood Urea Nitrogen 17 mg/dL (8-23); Calcium 8.8 mg/dL (8.6-10.3); Carbon Dioxide 19 mEq/L (23-29); Chloride 98 mEq/L (98-107); Globulin 4.2 g/dL (2.4-3.5); Glucose 320 mg/dL (70-105); Osmolality,Calculated 280 (280-300); Potassium 3.8 mEq/L (3.5-5.1); Sodium 128 mEq/L (136-145); Total Protein 7.2 g/dL (6.4-8.9); eGFR For Non-African Americans > 60 (> 60)
[2018-09-13 15:07] LABS: Troponin I < 0.03 ng/mL (< 0.04)
[2018-09-13] MEDS ORDERED: 0.9 % Sodium Chloride 1,000 ML IVC ONE (15:12)
[2018-09-13] MEDS ORDERED: Insulin Regular, Human 100 UNIT/ML IV ONE (15:13)
[2018-09-13] MEDS ORDERED: Naloxone 0.4 MG/ML INJ IVP PRN ×2 (15:34→17:57)
[2018-09-13] MEDS ORDERED: *HR* Dextrose 50 % in Water (Syg) 50 ML SYRINGE IVP PRN (19:56)
[2018-09-13] MEDS ORDERED: Dextrose Gel 15 GM/37.5 ML TUBE PO PRN ×2 (19:56)
[2018-09-13] MEDS ORDERED: D5% in Water 1,000 ML IVC PRN (19:56)
[2018-09-13] MEDS: Primidone 50 MG TABLET PO SCH (21:52)
[2018-09-13] MEDS: Lactobacillus 1 EACH CAP.SPRINK PO SCH (21:52)
[2018-09-14] MEDS: Levothyroxine 25 MCG TABLET PO SCH (06:06)
[2018-09-14] MEDS: Ascorbic Acid 500 MG TABLET PO SCH (09:08)
[2018-09-14] MEDS: Insulin LISPRO 300 UNITS/3 ML VIAL SQ SCH ×3 (09:08→18:06)
[2018-09-14] MEDS: Primidone 50 MG TABLET PO SCH ×2 (09:08→21:42)
[2018-09-14] MEDS: Mirtazapine 15 MG TABLET PO SCH (09:08)
[2018-09-14] MEDS: Lactobacillus 1 EACH CAP.SPRINK PO SCH ×2 (09:08→21:42)
--- NOTE | 2018-09-14 12:13 | Internal Med History&Physical ---
Date of Encounter: 09/14/18 Time of Encounter: 11:35 Assessment and Plan (1) UTI (urinary tract infection) Current visit: No Status: Acute She has been started empirically on Rocephin. Lactobacillus will be added. Urine culture has been ordered. Qualifiers: Urinary tract infection type: acute cystitis Hematuria presence: without hematuria Qualified Code(s): N30.00 - Acute cystitis without hematuria (2) Hyponatremia Current visit: No Status: Acute Sodium was 128 in emergency room. Previous history of SIADH. Recheck labs in a.m. Continue normal saline IV fluids. (3) Weight loss Current visit: No Status: Chronic Etiology not obvious. TSH was normal at 2.931 on 09/04/2018. CT scans May 2018 did not show pathology of chest, abdomen, or pelvis. I told her I recommended she see hematology/oncology for further evaluation of her abnormal iron profile and weight loss. (4) DM type 2 (diabetes mellitus, type 2) Current visit: No Status: Chronic Hemoglobin A1c was 7.0% on 09/04/2018. Appears diet-controlled. Qualifiers: Diabetes mellitus prison insulin use: without prison use Diabetes mellitus complication status: with unspecified complications Qualified Code(s): E11.8 - Type 2 diabetes mellitus with unspecified complications (5) Microcytic anemia Current visit: No Status: Acute I recommended she see hematology/oncology as an outpatient for further evaluation. Internal Medicine - H&P: HPI Chief complaint: Lethargy, UTI Admitted From: Emergency Dept Plans for Post Hospital Care: Home History of present illness: Ms. Baker is a 83 year old female who was sent from assisted living at [facility] when staff reported her to be lethargic She was evaluated in emergency room and found to have evidence of UTI and hyponatremia. She was admitted to [facility] floor for ongoing care needs. She has been hospitalized on 2 occasions recently with UTI. She has had hyponat remia in the past felt be secondary to SIADH. She was placed on MWF Septra DS twice a day for prophylaxis but has had urinary tract infections despite this. history is pertinent otherwise for prolapse repair with mesh placement 2002 at [facility] and umbilical hernia and colpopexy April 2018 at [facility]. She reports kidney stones and ovary cyst in the past but denies other kidney or bladder disorders. Past Med Surg Social Fam HX - Past Medical History Medical history: arthritis, diabetes, hyperlipidemia, kidney stones, renal disease, thyroid disease, other Additional medical history: spinal stenosis. severe rectocele. essential tremors. kidney stones Psychiatric history: no psych history - Past Surgical History Surgical History: appendectomy, cataract, cholecystectomy, herniorrhaphy, hip replacement, hysterectomy, orthopedic, other, ureteral stent, other Additional surgical history: 4 cornea transplants. left hip replacement 1998. hernia surgery 2004 - Social History Smoking Status: Never smoker Smokeless Tobacco Status: No Alcohol use: none Drug use: none - Family History Mother Adopted: No Living Status: Hx Family Cardiac Disorders: Yes Hx Family Respiratory Disorders: No Hx Family Cancer: No Hx Family GI Disorders: No Hx Family Endocrine Disorder: No Hx Family Neuromuscular Disorders: No Hx Family Neurologic Disorders: No Hx Family HEENT Disorders: No Hx Family Autoimmune Disorders: No Internal Medicine - H&P: Meds Levothyroxine [Synthroid] 50 mcg PO DAILY 02/19/16 [History] Propranolol [Inderal] 10 mg PO BID 02/19/16 [History] Ascorbic Acid [Vitamin C] 500 mg PO DAILY #30 tablet 06/30/18 [Rx] Ferrous Sulfate 325 mg PO DAILY #30 tablet 06/30/18 [Rx] Omeprazole [PriLOSEC] 20 mg PO DAILY PRN #0 08/08/18 [Rx] Sulfamethoxazole/Trimeth DS [Bactrim Ds] 1 each PO QMWF #12 tablet 08/08/18 [Rx] Lactobacillus [Culturelle] 1 each PO BID #10 cap.sprink 09/01/18 [Rx] Potassium Chloride 20 meq PO BID #120 tab.er.prt 09/01/18 [Rx] Docusate [Colace] 100 mg PO BID 09/13/18 [History] Meclizine [Antivert] 12.5 mg PO BID PRN 09/13/18 [History] Mirtazapine 7.5 mg PO DAILY 09/13/18 [History] Polyethylene Glycol 3350 [MiraLAX] 17 gm PO DAILY 09/13/18 [History] Primidone [Mysoline] 50 mg PO BID 09/13/18 [History] Solifenacin Succinate [Vesicare] 10 mg PO 09/13/18 [History] Allergy/AdvReac Type Severity Reaction Status Date / Time azithromycin Allergy Hives Verified 09/13/18 14:02 [From Zithromax Z-Silviano] ciprofloxacin [From Cipro] Allergy Hives Verified 09/13/18 14:02 gabapentin AdvReac Gastrointestinal Verified 09/13/18 14:02 Upset oxybutynin AdvReac Gastrointestinal Verified 09/13/18 14:02 Upset All Systems PM: A 10-system review of systems was performed and is negative for pertinent findings except as documented above in the HPI. Review of systems: Review of systems from her July 2018 [facility] hospitalization were reviewed and revised as below. Gen.: Her weight has decreased from 68.492 kg on 04/12/2018 to 58.598 kg at present. She reported at the March 2018 hospitalization she had lost approximately 20-25 pounds in the past year, unintentionally. She attributes this to poor appetite. CT scans of chest abdomen and pelvis done May 2018 showed no worrisome pathology. Cardiovascular: She denies hypertension MN heart failure angina DVT or pulmonary embolus Respiratory: She is a lifelong nonsmoker and denies chronic lung disease GI: She has had cholecystectomy. She has GERD. She denies disorders of her liver or exocrine pancreas : As per history of present illness Neurologic: She has essential tremor. She denies large distribution strokes or seizures. Endocrine: She has DM 2, hypothyroidism and hypertriglyceridemia. Hematology/oncology: She denies blood disorders or cancers. She has had anemia in the past. Anemia workup during her last [facility] hospitalization 08/30/2018 showed iron < 10, transferrin 93, ferritin 1052, B12 583, and folate 7.2. Psychiatric: She denies anxiety depression or other mental health issues Mus[place] skeletal: She had elective left total hip replacement in the past. She has history of gout. She denies significant arthritis or other bone joint or muscle disorders. - Constitutional Vitals: Temp Pulse Resp BP Pulse Ox 98.2 F 85 16 122/57 95 09/14/18 11:24 09/14/18 11:24 09/14/18 11:24 09/14/18 11:24 09/14/18 11:24 Exam: Gen.: She is a well-developed well-nourished female resting in bed who appears in no acute distress HEENT: Head is atraumatic and normocephalic. Eyes: EOMI. There is no scleral icterus. Mouth: Mucosa is moist. Neck: Supple and nontender. There is no thyromegaly or adenopathy noted. Heart: Regular without murmurs gallops or ectopics Lungs: No wheezes or crackles are heard. She has equivocal egophony in the left posterior lateral basilar area Abdomen: Soft and nontender. No masses or guarding are noted. Extremities: There is no cyanosis edema or clubbing noted. Dorsalis pedis and posttibial pulses are 1-2 over 2 bilaterally. Neurologic: Mental status: She is slightly lethargic but overall a good historian. Cranial nerves: Smile is symmetric. Forehead wrinkles bilaterally. Tongue protrudes midline. EOMI. Motor: There is no pronator drift. Cervical: Finger to nose is intact bilaterally. Skin: Warm and dry Internal Med - H&P Results - Labs CBC & Chem 7: 09/13/18 14:36 09/13/18 14:36 Labs: Short CBC 09/13/18 Range/Units 14:36 WBC 10.7 (4.3-11.1) K/mcL Hgb 10.6 L (11.5-15.4) g/dL Hct 32.6 L (35.3-44.9) % Plt Count 401 H (140-400) K/mcL Neutrophils # 8.7 (1.6-8.9) K/mcL BMP 09/13/18 14:36 Sodium 128 L Potassium 3.8 Chloride 98 Carbon Dioxide 19 L BUN 17 Creatinine 0.70 Glucose 320 H Calcium 8.8 Cardiac Enzymes 09/13/18 Range/Units 14:36 Troponin I < 0.03 (< 0.04) ng/mL Liver Function 09/13/18 Range/Units 14:36 Total Bilirubin 0.6 (0.3-1.0) mg/dL Direct Bilirubin 0.1 (0.0-0.2) mg/dL AST 32 (13-39) Units/L ALT 36 (7-52) Units/L Alkaline Phosphatase 110 H (34-104) Units/L Albumin 3.0 L (3.5-5.7) g/dL Urine 09/13/18 Range/Units 14:34 Urine Color Yellow (Yellow) Urine Clarity Slightly Cloudy A (Clear) Urine pH 7.0 (5.0-8.0) pH Units Ur Specific Printer 1.015 (1.010-1.025) Urine Protein 30 H (Neg-Trace) mg/dL Urine Glucose (UA) Normal (Normal) mg/dL
[2018-09-14] MEDS: 0.9 % Sodium Chloride w KCl 20 MEQ/1,000 ML MLS IVC SCH ×2 (12:59→21:45)
[2018-09-14] MEDS: cefTRIAXone 1,000 MG in Water for inj. (sterile) 20 ML 10 ML IVP SCH (12:59)
[2018-09-14] MEDS ORDERED: Acetaminophen 325 MG TABLET PO PRN (18:22)
[2018-09-14] MEDS: Nitrofurantoin (BID) 100 MG CAPSULE PO SCH (21:47)
[2018-09-15 05:53] LABS: Basophils # 0.1 K/mcL (0.0-0.2); Basophils % 0.6 %; Eosinophils # 0.2 K/mcL (0.0-0.6); Eosinophils % 2.1 %; Hematocrit 35.2 % (35.3-44.9); Immature Granulocytes % 1.2 % (0-4); Lymphocytes # 1.4 K/mcL (0.6-4.6); Lymphocytes % 16.5 %; Mean Corpuscular HGB Conc 31.3 g/dL (31.6-35.5); Mean Corpuscular Hemoglobin 24.3 pg (28.0-33.3); Mean Corpuscular Volume 77.9 fL (83.0-100.0); Monocytes # 1.3 K/mcL (0.0-1.3); Monocytes % 14.9 %; Neutrophils # 5.5 K/mcL (1.6-8.9); Platelet Count 317 K/mcL (140-400); Red Blood Count 4.52 M/mcL (3.82-4.97); Red Cell Distribution Width 17.2 % (11.5-14.5); Segmented Neutrophils % 64.7 %
[2018-09-15 06:13] LABS: Alanine Aminotransferase 34 Units/L (7-52); Albumin 2.6 g/dL (3.5-5.7); Albumin/Globulin Ratio 0.7 (1.1-2.2); Alkaline Phosphatase 98 Units/L (34-104); Aspartate Amino Transferase 31 Units/L (13-39); BUN/Creatinine Ratio 28 (6-26); Bilirubin,Total 0.4 mg/dL (0.3-1.0); Blood Urea Nitrogen 11 mg/dL (8-23); Calcium 8.5 mg/dL (8.6-10.3); Carbon Dioxide 20 mEq/L (23-29); Chloride 105 mEq/L (98-107); Globulin 3.8 g/dL (2.4-3.5); Glucose 99 mg/dL (70-105); Magnesium 1.8 mg/dL (1.6-2.6); Osmolality,Calculated 277 (280-300); Potassium 4.1 mEq/L (3.5-5.1); Sodium 134 mEq/L (136-145); Total Protein 6.4 g/dL (6.4-8.9); eGFR For Non-African Americans > 60 (> 60)
[2018-09-15] MEDS: Levothyroxine 25 MCG TABLET PO SCH (07:00)
[2018-09-15] MEDS: 0.9 % Sodium Chloride w KCl 20 MEQ/1,000 ML MLS IVC SCH (07:01)
[2018-09-15] MEDS: Insulin LISPRO 300 UNITS/3 ML VIAL SQ SCH ×3 (08:06→17:17)
--- NOTE | 2018-09-15 09:34 | Internal Med Progress Note ---
Date of Encounter: 09/15/18 Time of Encounter: 09:25 - Assessment and plan (1) UTI (urinary tract infection) Current Visit: No Status: Acute Assessment and plan: September 15. Urine culture preliminary report shows gram-negative rods. Continue empiric Rocephin, Macrobid, and lactobacillus. Qualifiers: Urinary tract infection type: acute cystitis Hematuria presence: without hematuria Qualified Code(s): N30.00 - Acute cystitis without hematuria (2) Hyponatremia Current Visit: No Status: Acute Assessment and plan: September 15. Sodium improved to 134. Discontinue IV fluids and continue to monitor. (3) Weight loss Current Visit: No Status: Chronic Assessment and plan: September 15. Etiology not obvious. TSH was normal at 2.931 on 09/04/2018. CT scans May 2018 did not show pathology of chest, abdomen, or pelvis. I told her I recommended she see hematology/oncology for further evaluation of her abnormal iron profile and weight loss. (4) DM type 2 (diabetes mellitus, type 2) Current Visit: No Status: Chronic Assessment and plan: September 15. Hemoglobin A1c was 7.0% on 09/04/2018. Appears diet-controlled. Qualifiers: Diabetes mellitus felt puller insulin use: without usp use Diabetes pablo litus complication status: with unspecified complications Qualified Code(s): E11.8 - Type 2 diabetes mellitus with unspecified complications (5) Microcytic anemia Current Visit: No Status: Acute Assessment and plan: September 15. I recommend she see hematology/oncology as outpatient for further evaluation. Will order iron sucrose since serum iron was < 10 on 08/30/2018 - Subjective Interval history: September 15. She has no new complaints and states she feels significantly better. - Constitutional Vitals: Temp Pulse Resp BP Pulse Ox 97.6 F 75 14 145/74 97 09/15/18 06:24 09/15/18 06:24 09/15/18 06:24 09/15/18 06:24 09/15/18 06:24 Exam: She is resting comfortably in bed and appears in no acute distress. She is more awake and appropriate in conversation. Her affect is overall cheerful. I reviewed her medications and lab results. Internal Medicine: Result - Labs CBC & Chem 7: 09/15/18 05:26 09/15/18 05:26 Labs: Short CBC 09/15/18 Range/Units 05:26 WBC 8.4 (4.3-11.1) K/mcL Hgb 11.0 L (11.5-15.4) g/dL Hct 35.2 L (35.3-44.9) % Plt Count 317 (140-400) K/mcL Neutrophils # 5.5 (1.6-8.9) K/mcL BMP 09/15/18 05:26 Sodium 134 L Potassium 4.1 Chloride 105 Carbon Dioxide 20 L BUN 11 Creatinine 0.40 L Glucose 99 Calcium 8.5 L Liver Function 09/15/18 Range/Units 05:26 Total Bilirubin 0.4 (0.3-1.0) mg/dL AST 31 (13-39) Units/L ALT 34 (7-52) Units/L Alkaline Phosphatase 98 (34-104) Units/L Albumin 2.6 L (3.5-5.7) g/dL - ABG Interpretation ABG results: PT/INR, D-dimer PT 19.2 Seconds (9.4-12.1) H 09/13/18 14:36 Consult Discharge Plan - Plan Referrals: NONE,PCP [Primary Care Provider] - 1 week
[2018-09-15] MEDS ORDERED: Iron Sucrose Complex 400 MG in 0.9 % Sodium Chloride 250 ML IVPB ONE (09:40)
[2018-09-15] MEDS: cefTRIAXone 1,000 MG in Water for inj. (sterile) 20 ML 10 ML IVP SCH (10:26)
[2018-09-15] MEDS: Ascorbic Acid 500 MG TABLET PO SCH (10:27)
[2018-09-15] MEDS: Primidone 50 MG TABLET PO SCH ×2 (10:27→20:41)
[2018-09-15] MEDS: Lactobacillus 1 EACH CAP.SPRINK PO SCH ×2 (10:27→20:41)
[2018-09-15] MEDS: Nitrofurantoin (BID) 100 MG CAPSULE PO SCH ×2 (10:30→17:17)
[2018-09-15] MEDS: Mirtazapine 15 MG TABLET PO SCH (10:32)
[2018-09-16] MEDS: Levothyroxine 25 MCG TABLET PO SCH (05:56)
[2018-09-16] MEDS: Ascorbic Acid 500 MG TABLET PO SCH (08:07)
[2018-09-16] MEDS: Nitrofurantoin (BID) 100 MG CAPSULE PO SCH (08:08)
[2018-09-16] MEDS: Insulin LISPRO 300 UNITS/3 ML VIAL SQ SCH ×2 (08:12→11:51)
[2018-09-16] MEDS: Lactobacillus 1 EACH CAP.SPRINK PO SCH (10:08)
[2018-09-16] MEDS: Primidone 50 MG TABLET PO SCH (10:12)
[2018-09-16] MEDS: Mirtazapine 15 MG TABLET PO SCH (10:13)
[2018-09-16 11:44] VITALS: BP 119/72
[2018-09-16] MEDS: cefTRIAXone 1,000 MG in Water for inj. (sterile) 20 ML 10 ML IVP SCH (12:01)
--- NOTE | 2018-09-16 14:59 | Discharge Summary ---
Orders not resulted at time of discharge: Pending orders 09/13/18 14:34 Culture,Urine [RM] Stat 09/14/18 19:25 Culture,Blood [BC] Stat Date of Encounter: 09/16/18 Time of Encounter: 14:40 - Discharge Diagnosis (1) UTI (urinary tract infection) Priority: Primary Status: Acute Qualifiers: Urinary tract infection type: acute cystitis Hematuria presence: without hematuria Qualified Code(s): N30.00 - Acute cystitis without hematuria (2) Hyponatremia Priority: Secondary Status: Acute (3) Weight loss Priority: Secondary Status: Chronic (4) DM type 2 (diabetes mellitus, type 2) Priority: Secondary Status: Chronic Qualifiers: Diabetes mellitus medical terminologist insulin use: without senior living use Diabetes mellitus complication status: with unspecified complications Qualified Code(s): E11.8 - Type 2 diabetes mellitus with unspecified complications (5) Microcytic anemia Priority: Secondary Status: Acute Hospital course: Ms. Baker is a 83 year old female who was sent from [facility] living at [facility] when staff reported her to be lethargic She was evaluated in emergency room and found to have evidence of UTI and hyponatremia. She was admitted to [facility] floor for ongoing care needs. Initial orders were written by the emergency room physician. I saw her on September 14 and performed a history and physical. She was started empirically on Rocephin. Lactobacillus was added. Urine culture was sent and returned showing pseudomonas aeruginosa. Final sensitivity is pending at time of discharge. She will be prescribed oral Suprax 400 mg daily with lactobacillus. A 7 day supply of Suprax was ordered with 3 refills available on prescription. I recommend she take antibiotic for 4 weeks to see if the source of bacte jorge/UTI can be eliminated. Her PCP can review the final urine culture reported and determine if Suprax provides adequate coverage and if refills should be obtained or if a different antibiotic should be prescribed. She received an infusion of iron sucrose during hospitalization. Her PCP can monitor the anemia and macrocytosis. I recommend she be referred to hematology/oncology if anemia and weight loss persist. Sodium level improved to 134 by September 15. On September 16 she was stable for discharge back to [facility] living at [facility]. She will follow with her PCP Charity Pike CNP - Time Spent with Patient Total time spent providing and/or coordinating discharge services: - Discharge Medications Prescriptions: Cefixime [Suprax] 400 mg PO DAILY #7 capsule Lactobacillus [Culturelle] 1 each PO BID #56 cap.sprink Home Medications: Levothyroxine [Synthroid] 50 mcg PO DAILY 02/19/16 [History] Propranolol [Inderal] 10 mg PO BID 02/19/16 [History] Ascorbic Acid [Vitamin C] 500 mg PO DAILY #30 tablet 06/30/18 [Rx] Ferrous Sulfate 325 mg PO DAILY #30 tablet 06/30/18 [Rx] Omeprazole [PriLOSEC] 20 mg PO DAILY PRN #0 08/08/18 [Rx] Potassium Chloride 20 meq PO BID #120 tab.er.prt 09/01/18 [Rx] Docusate [Colace] 100 mg PO BID 09/13/18 [History] Meclizine [Antivert] 12.5 mg PO BID PRN 09/13/18 [History] Mirtazapine 7.5 mg PO DAILY 09/13/18 [History] Polyethylene Glycol 3350 [MiraLAX] 17 gm PO DAILY 09/13/18 [History] Primidone [Mysoline] 50 mg PO BID 09/13/18 [History] Solifenacin Succinate [Vesicare] 10 mg PO 09/13/18 [History] Cefixime [Suprax] 400 mg PO DAILY #7 capsule 09/16/18 [Rx] Lactobacillus [Culturelle] 1 each PO BID #56 cap.sprink 09/16/18 [Rx] Allergies/Adverse Reactions: Allergy/AdvReac Type Severity Reaction Status Date / Time azithromycin Allergy Hives Verified 09/13/18 14:02 [From Zithromax Z-Silviano] ciprofloxacin [From Cipro] Allergy Hives Verified 09/13/18 14:02 gabapentin AdvReac Gastrointestinal Verified 09/13/18 14:02 Upset oxybutynin AdvReac Gastrointestinal Verified 09/13/18 14:02 Upset Date of admission: 09/13/18 15:42 Primary care physician: Charity Pike TOBACCO SHAKER - Constitutional Vitals: Temp Pulse Resp BP Pulse Ox 97.5 F L 68 16 119/72 96 09/16/18 11:43 09/16/18 11:43 09/16/18 11:43 09/16/18 11:43 09/16/18 11:43 - Patient Status Disposition: Home, Self-Care Condition: Undetermined - Discharge Instructions Follow Up With: Charity Pike CNP [Advanced Practice Nurse] - 1 week - Diet and Activity Activity: resume usual activities as tolerated Diet: advance to your usual diet
--- NOTE | 2018-09-16 15:10 | Physician Discharge Referral ---
ExtendedCare Referral Info Transfer To: [facility] Provider in Charge: David Provider in Charge after Transfer: PCP (Charity Pike CNP) - Diagnosis (1) UTI (urinary tract infection) Priority: Primary Status: Acute (2) Hyponatremia Priority: Secondary Status: Acute (3) Weight loss Priority: Secondary Status: Chronic (4) DM type 2 (diabetes mellitus, type 2) Priority: Secondary Status: Chronic (5) Microcytic anemia Priority: Secondary Status: Acute Aware of Diagnosis: Patient Aware of Prognosis: Patient - Transfer Medications Prescriptions: Cefixime [Suprax] 400 mg PO DAILY #7 capsule Lactobacillus [Culturelle] 1 each PO BID #56 cap.sprink Home Medications: Levothyroxine [Synthroid] 50 mcg PO DAILY 02/19/16 [History] Propranolol [Inderal] 10 mg PO BID 02/19/16 [History] Ascorbic Acid [Vitamin C] 500 mg PO DAILY #30 tablet 06/30/18 [Rx] Ferrous Sulfate 325 mg PO DAILY #30 tablet 06/30/18 [Rx] Omeprazole [PriLOSEC] 20 mg PO DAILY PRN #0 08/08/18 [Rx] Potassium Chloride 20 meq PO BID #120 tab.er.prt 09/01/18 [Rx] Docusate [Colace] 100 mg PO BID 09/13/18 [History] Meclizine [Antivert] 12.5 mg PO BID PRN 09/13/18 [History] Mirtazapine 7.5 mg PO DAILY 09/13/18 [History] Polyethylene Glycol 3350 [MiraLAX] 17 gm PO DAILY 09/13/18 [History] Primidone [Mysoline] 50 mg PO BID 09/13/18 [History] Solifenacin Succinate [Vesicare] 10 mg PO 09/13/18 [History] Cefixime [Suprax] 400 mg PO DAILY #7 capsule 09/16/18 [Rx] Lactobacillus [Culturelle] 1 each PO BID #56 cap.sprink 09/16/18 [Rx] Allergies/Adverse Reactions: Allergy/AdvReac Type Severity Reaction Status Date / Time azithromycin Allergy Hives Verified 09/13/18 14:02 [From Zithromax Z-Silviano] ciprofloxacin [From Cipro] Allergy Hives Verified 09/13/18 14:02 gabapentin AdvReac Gastrointestinal Verified 09/13/18 14:02 Upset oxybutynin AdvReac Gastrointestinal Verified 09/13/18 14:02 Upset - Respiratory Orders Smoking Cessation: Smoking cessation has been advised. For more information, call the [place] Tobacco Quit Line at 1-378-SCXC-NOW. - Mobility Orders Ambulate - Diet Orders No Concentrated Sweets CERTIFICATION: I certify that the transfer of the above named patient to an Extended Care Facility is necessary for the continuing treatment of the diagnosis listed. The above information is true and accurate reflection of patient's current condition. Confidential - Redisclosure prohibited without a patient's written consent.
--- NOTE | 2018-09-17 09:28 | Electrocardiograph Report ---
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
== END 2018-09-16 17:45 | disposition home or self-care (01) ==
LOC: INPPIK 14:00 → EMEROOPIK 14:00 → INPPIK 17:12
PROVIDERS: ADMIT Internal Medicine; ATTEND Internal Medicine